=== PATIENT | male | born 1945 | race Caucasian/White ===

== ENCOUNTER → 2017-02-15 | Outpatient (CLI) | payer MEDICARE ==
[2017-02-15 08:04] LABS: Blood Urea Nitrogen 20 mg/dL (9-20); Non-African American GFR(MDRD) 54 (>60 ml/min/1.73 sqM)
--- NOTE | 2017-02-15 10:09 | CT ---
EXAMINATION TYPE: CT abdomen pelvis w con DATE OF EXAM: 02/15/2017 COMPARISON: NONE HISTORY: 71-year-old male complains of microscopic hematuria. TECHNIQUE: Contiguous axial scanning of the abdomen and pelvis following administration of 100 ml Omn ipaque 300 IV contrast. Delayed images through the kidneys and coronal/sagittal reconstructions perf ormed. CT DLP: 3974.7 mGycm Automated exposure control for dose reduction was used. FINDINGS: The heart is upper limits of normal in size without pericardial effusion. Strandy atelectasis at the lung bases without pleural effusion. Suspect some reticular interstitial fibrotic changes as well par ticularly at the right base. No focal liver lesion or biliary ductal dilatation. No abnormal gallbladder distention. However, some dependent hyperdense material is noted at the gallb ladder neck region. Scattered cysts within both kidneys some of which are mildly complicated such as in the posterior rig ht lower pole measuring 3.1 cm. 2 additional exophytic cysts on the right measure up to 3.3 cm one at the posterior lower pole left kidney measures 2.0 cm. There is bilateral nephrolithiasis. Approximately 8 calculi in the left including staghorn calculus m easuring up to 1.9 cm within the mid renal infundibulum and major calyceal system. There is no excret ion of contrast seen on either side on the delayed kidney images. On the right, no renal calculi are seen but there is a 2.1 cm calculus dependent within a dilated flex al pelvis with moderate hydronephrosis and mild perinephric stranding. There is an obstructing 1.3 cm calculus just beyond the UPJ in the upper ureter. No dilated small bowel, free fluid, or free air. No mesenteric or retroperitoneal lymphadenopathy see n. Mild atherosclerotic calcifications within the abdominal aorta without aneurysm. Normal appendix. Oral contrast has progressed to the mid sigmoid colon. No pericolonic inflammatory c hange. There is an ovoid soft tissue density measuring 1.7 cm along the left lateral aspect of the pr oximal sigmoid colon likely sequela of prior inflammation. Bladder is urine distended. However, there is eccentric wall thickening towards the left measuring up to 9.7 mm. There is a 1.5 cm dependent bladder calculus, central prostatic calcifications, and prost atomegaly at 7.0 cm wide. No abnormal fluid collection in the pelvis or pelvic lymphadenopathy. Bones: Prior right hip total arthroplasty. Degenerative changes at the SI joints and within the lower lumbar spine. Bridging anterior endplate spondylosis lower thoracic spine compatible with DISH. IMPRESSION: 1. A 1.3 CM CALCULUS IN THE RIGHT URETER JUST BEYOND THE UPJ CAUSING MODERATE OBSTRUCTIVE UROPATHY. A DDITIONAL 2.1 CM CALCULUS DEPENDENTLY IN THE DILATED RIGHT RENAL PELVIS. 2. LEFT-SIDED NEPHROLITHIASIS INCLUDING A 1.9 CM STAGHORN CALCULUS. WHILE THERE IS NO HYDRONEPHROSIS ON THE LEFT, THERE IS NO CONTRAST EXCRETION ON THE DELAYED IMAGES. CORRELATE WITH PATIENT'S CREATINI NE AND GFR. 3. A FEW BILATERAL RENAL CYSTS MEASURING UP TO 3.3 CM ON THE RIGHT. NO SUSPICIOUS RENAL LESION. 4. ECCENTRIC WALL THICKENING ALONG THE LEFT LATERAL ASPECT OF THE BLADDER MEASURING UP TO 1 CM. CORRE LATE WITH URINE CYTOLOGY AND DIRECT VISUALIZATION INDICATED TO EXCLUDE A UROTHELIAL LESION. 5. PROSTATOMEGALY (7 CM WIDE) WELL A 1.5 CM DEPENDENT BLADDER CALCULUS. 6. SUSPECT CHOLELITHIASIS.
== END | disposition home or self-care (01) ==
LOC: RADCTMAIN 07:18
PROVIDERS: ATTEND Urology
DX: N20.2 Calculus of kidney with calculus of ureter (principal); N21.0 Calculus in bladder; N40.1 Benign prostatic hyperplasia with lower urinary tract symptoms; N13.9 Obstructive and reflux uropathy, unspecified; N28.1 Cyst of kidney, acquired
CPT/HCPCS: 82565; 84520; 74177; 36415; Q9967

== ENCOUNTER → 2017-02-17 | Outpatient (CLI) | payer MEDICARE ==
--- NOTE | 2017-02-17 09:26 | XR ---
EXAMINATION TYPE: XR abdomen 1V DATE OF EXAM: 02/17/2017 COMPARISON: 02/15/2012, CT 02/15/2017 INDICATION: Renal calculus TECHNIQUE: Single view abdomen supine view FINDINGS: There is a normal bowel gas pattern. Psoas margins are normal. No organomegaly is present. There is a large inferior pole left renal calculus measuring estimated 2.1 x 3.1 cm in size. Additio nal smaller calcifications are in the mid left kidney. Faintly visualized at the right L2 transverse process is a 1.0 x 2.0 cm calcification may correspond to the obstructing proximal right ureteral sto ne from the CT examination. Phleboliths within the pelvis. IMPRESSION: 1. Multiple left-sided renal stones. 2. Right proximal ureteral stone faintly visualized appears stable from CT comparison.
== END | disposition home or self-care (01) ==
LOC: RADXRMAIN 08:13
PROVIDERS: ATTEND Urology
DX: N20.2 Calculus of kidney with calculus of ureter (principal)
CPT/HCPCS: 74000

== ENCOUNTER → 2017-04-05 | Outpatient (CLI) | payer MEDICARE ==
--- NOTE | 2017-04-05 17:04 | XR ---
EXAMINATION TYPE: XR chest 2V DATE OF EXAM: 04/05/2017 COMPARISON: 05/06/2015 HISTORY: Preoperative with history of atrial fibrillation TECHNIQUE: Frontal and lateral views of the chest are obtained. FINDINGS: There is no focal air space opacity, pleural effusion, or pneumothorax seen. The cardiac silhouette size is top normal. The osseous structures are negative for acute findings. IMPRESSION: No acute cardiopulmonary process.
[2017-04-05 17:21] LABS: Basophils % (A) 0 %; CH 31.5; CHCM 33.1; Eosinophils # (A) 0.2 k/uL (0-0.7); Eosinophils % (A) 3 %; HCT 52.1 % (39.0-53.0); HDW 2.46; HGB 16.6 gm/dL (13.0-17.5); Luc # (Auto) 0.14; Luc % (Auto) 2; Lymphocytes # (A) 1.3 k/uL (1.0-4.8); Lymphocytes % (A) 20 %; MCH 30.4 pg (25.0-35.0); MCHC 31.8 g/dL (31.0-37.0); MCV 95.8 fL (80.0-100.0); Mean Platelet Volume 8.3; Monocytes # (A) 0.5 k/uL (0-1.0); Monocytes % (A) 7 %; Neutrophils # (A) 4.4 k/uL (1.3-7.7); Neutrophils % (A) 68 %; RBC 5.44 m/uL (4.30-5.90); RDW 15.2 % (11.5-15.5); WBC 6.5 k/uL (3.8-10.6)
[2017-04-05 17:30] LABS: ALT 26 U/L (21-72); AST 19 U/L (17-59); Alkaline Phosphatase 66 U/L (38-126); Anion Gap 11 mmol/L; Blood Urea Nitrogen 22 mg/dL (9-20); Calcium 9.4 mg/dL (8.4-10.2); Carbon Dioxide 21 mmol/L (22-30); Chloride 111 mmol/L (98-107); Glucose 128 mg/dL (74-99); Non-African American GFR(MDRD) >60 (>60 ml/min/1.73 sqM); Potassium 4.7 mmol/L (3.5-5.1); Sodium 143 mmol/L (137-145); Total Bilirubin 0.5 mg/dL (0.2-1.3); Total Protein 7.4 g/dL (6.3-8.2)
[2017-04-05 17:50] LABS: Appearance,Urine Turbid (Clear); Bilirubin,Urine Negative (Negative); Glucose,Urine (UA) Negative (Negative); Ketones,Urine Negative (Negative); Leukocyte Esterase,Urine Large (Negative); Nitrite,Urine Negative (Negative); PH, Urine 5.5 (5.0-8.0); Particle Count 9228; Protein,Urine 1+ (Negative); RBC,Urine >182 /hpf (0-5); Specific Gravity,Urine 1.015 (1.001-1.035); Squamous Epithelial Cell,Urine 2 /hpf (0-4); UA Billing (MACRO vs. MICRO) MICRO; Urobilinogen,Urine <2.0 mg/dL (<2.0); WBC,Urine >182 /hpf (0-5)
== END | disposition home or self-care (01) ==
LOC: RADXRMAIN 16:30
PROVIDERS: ATTEND Urology
DX: Z01.810 Encounter for preprocedural cardiovascular examination (principal); Z01.818 Encounter for other preprocedural examination; I48.91 Unspecified atrial fibrillation; I10 Essential (primary) hypertension; N20.0 Calculus of kidney; E78.00 Pure hypercholesterolemia, unspecified; R35.0 Frequency of micturition; R31.9 Hematuria, unspecified
CPT/HCPCS: 36415; 71020; 80053; 81001; 85025; 87086

== ENCOUNTER 2017-04-12 10:00 | Inpatient (IN) | payer MEDICARE ==
[2017-04-06 08:52] VITALS: BMI 43.5
[2017-04-13] MEDS ORDERED: GENTAMICIN 220 MG in SODIUM CHLORIDE 0.9% 100 ML IVPB ONE (05:00)
[2017-04-13] MEDS ORDERED: DEXAMETHASONE SOD PHOSPHATE 10 MG/ML 1 ML VIAL IV ONE (06:03)
[2017-04-13] MEDS ORDERED: LACTATED RINGERS 1,000 ML IV SCH (06:03)
[2017-04-13] MEDS ORDERED: HYDROmorphone 0.5 MG/0.5 ML SYRINGE IVP PRN (06:03)
[2017-04-13] MEDS ORDERED: ONDANSETRON 4 MG/2 ML VIAL IVP ONE (06:03)
--- NOTE | 2017-04-13 08:11 | XR ---
EXAMINATION TYPE: XR KUB DATE OF EXAM: 04/13/2017 CLINICAL DATA: 71-year-old male preop bilateral renal stones. COMPARISON: 02/17/2017 FINDINGS: Nonobstructive bowel gas pattern. Redemonstrated 2.7 cm calcification in the left abdomen. Additional left-sided calculi are not as bradford dent on the current exam. In the right paramedian mid abdomen, a 1.2 cm calcification is demonstrated. This appears slightly lo wer in position and smaller from prior exam. Phleboliths in the pelvis, right greater than left. Right hip total arthroplasty partially visualized. Mild degenerative changes at the left hip. IMPRESSION: 1. Left-sided nephrolithiasis measuring up to 2.7 cm. 2. A 1.2 cm calcification right paramedian mid abdomen appears slightly lower and slightly smaller. T his could reflect a calculus in the upper third right ureter. Clinically correlate.
[2017-04-13] MEDS ORDERED: LIDOCAINE 1% 20 ML VIAL (10MG/ML) FOR IV START INTRADERMA ONE (08:24)
[2017-04-13 08:53] LABS: INR 1.3 (<1.2); Prothrombin Time 13.2 sec (9.0-12.0)
[2017-04-13] MEDS ORDERED: PHENYLEPHRINE-0.9% NACL SYG 1 MG/10 ML SYRINGE ONE (08:54)
[2017-04-13] MEDS ORDERED: SUCCINYLCHOLINE CHLORIDE VIAL 200 MG/10 ML VIAL IV ONE (08:54)
[2017-04-13] MEDS ORDERED: LIDOCAINE 1% INJ 10MG/ML (20 ML MDV) ONE (08:54)
[2017-04-13] MEDS ORDERED: MIDAZOLAM 2 MG/2 ML VIAL ONE (08:54)
[2017-04-13] MEDS ORDERED: PROPOFOL 10 MG/ML 20 ML VIAL IV ONE (08:54)
[2017-04-13] MEDS ORDERED: ePHEDrine SULFATE/0.9% NACL/PF 50 MG/5 ML SYRINGE IV ONE (08:54)
[2017-04-13] MEDS ORDERED: fentaNYL (PF) 50 MCG/ML 2 ML AMP ONE (08:54)
[2017-04-13] MEDS ORDERED: IOHEXOL 300 MG/ML 50 ML BOTTLE MISCELLANE ONE (09:27)
--- NOTE | 2017-04-13 10:10 | P.OP ---
Date of Procedure: 04/13/17 Preoperative Diagnosis: Right renal calculi, right hydronephrosis, urine infection Postoperative Diagnosis: Right renal calculi, right ureteral calculi, right hydronephrosis, urethral stricture, bladder stone Procedure(s) Performed: Cystoscopy, direct vision internal urethrotomy, placement of 6 x 26 double-J catheter right, cystoscopy lithotripsy with laser, large, placement of 18- Tanzanian Rodriguez catheter Anesthesia: AWA Surgeon: Melvin Hanley Estimated Blood Loss (ml): 10 Pathology: other (Bladder stone) Condition: stable Disposition: PACU Indications for Procedure: The patient is a 71-year-old gentleman who was brought to the hospital for a percutaneous nephrostolithotomy this morning. He has a known proximal ureteral stone large right renal stone and hydronephrosis. His urine culture is positive for enterococcus therefore I will place a double-J catheter rather than seed with a percutaneous nephrostolithotomy. This will be done after antibiotic treatment and drainage with the double-J catheter. Description of Procedure: The patient is brought to the operating suite and given a successful general endotracheal anesthesia. He's placed lithotomy position with sterile prep and drape. Under direct vision the 22-Tanzanian sheath and Foroblique lenses introduced in the anterior urethra and in the mid bulbar urethra strictures identified. I thus removed the cystoscope and introduced the direct vision urethrotome. I cut stricture from mid bulbar urethra back to proximal urethra. Senna the prostate which is large and obstructing and inflamed. I passed into the bladder and there is a large bladder calculus. It was about 3 cm. I identified the right ureteral orifice. An 035 wires passed through this for the double-J catheter. It meets obstruction in the proximal ureter due to the stone. I passed an open-ended catheter over the wire. I eventually am able to pass the 035 wire by the stone. I removed the open-ended catheter from the wire and passed a 6 x 26 double-J catheter. The catheter coils proximal to the stone and in the bladder. I then introduced the 500 laser probe break the stone into very small pieces and irrigated out of the bladder. I then pass an 18-Tanzanian Rodriguez catheter in the bladder. Impression successful direct vision internal urethrotomy, cystoscopy lithotripsy , placement of double-J catheter right. Recommendations: The catheter will remain in one week. The double-J catheter will remain in until I do the percutaneous nephrostolithotomy which will be after April 29 at the patient and his family's request
[2017-04-13 10:15] VITALS: TEMP 96.8
[2017-04-13] MEDS: LABETALOL 5 MG/ML VIAL MDV IV ONE ×2 (10:25→10:32)
--- NOTE | 2017-04-13 10:57 | FL ---
EXAMINATION TYPE: FL urography retrograde DATE OF EXAM: 04/13/2017 COMPARISON: NONE HISTORY: 71 year-old male right stent placement TECHNIQUE: Fluoroscopy. FINDINGS: Fluoroscopic guidance was provided during procedure performed by Dr. Hanley. A total of 2 minutes 21 seconds of fluoroscopic time was utilized during the procedure and 1 spot images was acqui red. IMPRESSION: As Above. Refer to urology procedure note for complete findings and impression.
[2017-04-13 13:57] LABS: Glucose,Whole Blood 210 mg/dL (75-99)
[2017-04-13 14:01] VITALS: BP 143/97; PULSE 93; RESP 18
--- NOTE | 2017-04-19 09:06 | P.DS ---
Providers Date of admission: 04/13/17 07:50 Attending physician: Melvin Hanley Primary care physician: Audrey Zepeda [facility] Course: The patient was admitted to the hospital for a percutaneous nephrostolithotomy however due to an infection this was canceled. He underwent cystoscopy, direct vision internal urethrotomy, cystoscopy lithotripsy to a large stone and placement of a double-J catheter to relieve the obstructing infected kidney. He was discharged home. He'll follow-up in the office in one week. He'll be set up for percutaneous nephrostolithotomy at a later date. I felt that these above procedures superseded the need to do the percutaneous nephrostolithotomy at this point in time. The patient's understand. Patient Condition at Discharge: Good Plan - Discharge Summary New Discharge Prescriptions: New Ciprofloxacin HCl [Cipro] 500 mg PO Q12HR #60 tablet HYDROcodone/APAP 5-325MG [[place] 5-325] 1 tab PO Q4HR PRN #20 tab PRN Reason: Pain Control No Action Simvastatin 20 mg PO HS Metoprolol Tartrate [Lopressor] 50 mg PO TID #90 tab Warfarin [Coumadin] 5 mg PO DAILY Fluticasone Nasal [place] [Flonase Nasal [place]] 1 spray EA NOSTRIL DAILY PRN PRN Reason: dizziness Discharge Medication List Simvastatin 20 mg PO HS 02/21/15 [History] Metoprolol Tartrate [Lopressor] 50 mg PO TID #90 tab 02/25/15 [Rx] Fluticasone Nasal [place] [Flonase Nasal [place]] 1 spray EA NOSTRIL DAILY PRN 04/06 [History] Warfarin [Coumadin] 5 mg PO DAILY 04/06/17 [History] Ciprofloxacin HCl [Cipro] 500 mg PO Q12HR #60 tablet 04/13/17 [Rx] HYDROcodone/APAP 5-325MG [[place] 5-325] 1 tab PO Q4HR PRN #20 tab 04/13/17 [Rx] Follow up Appointment(s)/Referral(s): Melvin Hanley MD [STAFF PHYSICIAN] - 1 Week (OFFICE TO CALL YOU AT HOME WITH FOLLOW UP DATE AND TIME) Patient Instructions/Handouts: *[facility] - Cystoscopy Discharge Instructions , *[facility] - Rodriguez Catheter Instructions, *[facility] - (Anesthesia) Discharge Instructions Outpatient Surgery Activity/Diet/Wound Care/Special Instructions: Office will call you with a follow up appointment date and time. Discharge Disposition: HOME SELF-CARE
== END 2017-04-13 14:35 | disposition home or self-care (01) | DRG 694 ==
LOC: 2ORMAIN 04-13 07:50
PROVIDERS: ADMIT Urology; ATTEND Urology
PROC: 0TF68ZZ Fragmentation in Right Ureter, Via Natural or Artificial Opening Endoscopic (ICD-10-PCS; principal; 2017-04-13 09:00)
PROC: 0T7D8ZZ Dilation of Urethra, Via Natural or Artificial Opening Endoscopic (ICD-10-PCS; principal; 2017-04-13 09:00)
PROC: 0T768DZ Dilation of Right Ureter with Intraluminal Device, Via Natural or Artificial Opening Endoscopic (ICD-10-PCS; principal; 2017-04-13 09:00)
PROC: 0T9B70Z Drainage of Bladder with Drainage Device, Via Natural or Artificial Opening (ICD-10-PCS; principal; 2017-04-13 09:00)
DX: N13.2 Hydronephrosis with renal and ureteral calculous obstruction (principal); I48.92 Unspecified atrial flutter; N39.0 Urinary tract infection, site not specified; N13.1 Hydronephrosis with ureteral stricture, not elsewhere classified; N21.0 Calculus in bladder; I48.91 Unspecified atrial fibrillation; I35.1 Nonrheumatic aortic (valve) insufficiency; R31.9 Hematuria, unspecified; N40.1 Benign prostatic hyperplasia with lower urinary tract symptoms; I10 Essential (primary) hypertension; R35.0 Frequency of micturition; N35.9 Urethral stricture, unspecified; B95.2 Enterococcus as the cause of diseases classified elsewhere; E78.00 Pure hypercholesterolemia, unspecified; Z87.442 Personal history of urinary calculi; Z88.1 Allergy status to other antibiotic agents; Z88.0 Allergy status to penicillin; Z88.2 Allergy status to sulfonamides; Z96.641 Presence of right artificial hip joint; Z79.01 Long term (current) use of anticoagulants; Z79.899 Other long term (current) drug therapy; Z96.653 Presence of artificial knee joint, bilateral; Z82.49 Family history of ischemic heart disease and other diseases of the circulatory system; Z80.42 Family history of malignant neoplasm of prostate
CPT/HCPCS: 74000; 74420; 82365; 85610; 86850; 86900; 86901

== ENCOUNTER 2017-05-05 13:00 | Inpatient (IN) | payer MEDICARE ==
[2017-05-19 14:58] VITALS: BMI 43.5
[2017-05-24] MEDS ORDERED: GENTAMICIN 220 MG in SODIUM CHLORIDE 0.9% 100 ML IVPB ONE (05:00)
[2017-05-24] MEDS ORDERED: DEXAMETHASONE SOD PHOSPHATE 10 MG/ML 1 ML VIAL IV ONE (05:58)
[2017-05-24] MEDS ORDERED: ONDANSETRON 4 MG/2 ML VIAL IVP ONE (05:58)
[2017-05-24] MEDS ORDERED: LIDOCAINE 1% 20 ML VIAL (10MG/ML) FOR IV START INTRADERMA ONE (06:40)
[2017-05-24] MEDS: LACTATED RINGERS 1,000 ML IV SCH (06:47)
[2017-05-24 06:57] LABS: INR 1.3 (<1.2)
[2017-05-24 06:58] LABS: Prothrombin Time 12.7 sec (9.0-12.0)
--- NOTE | 2017-05-24 07:17 | XR ---
EXAMINATION TYPE: XR KUB DATE OF EXAM: 05/24/2017 7:09 AM CLINICAL HISTORY: Preoperative for right nephrolithiasis. TECHNIQUE: Single supine KUB image of the abdomen is obtained. COMPARISON: 04/13/2017 FINDINGS: The previously seen calculus measured 1.2 cm on the prior exam and was adjacent to the righ t transverse process of L4 is not clearly visualized on today's examination. Right ureteral stent is identified, new from the prior. Staghorn calculus on the left is again present measuring approximatel y 2.6 cm as well as additional 4 mm and 1.6 cm left renal calculi. Right femoral arthroplasty and surrounding heterotopic ossification and moderate degenerative changes of the left femoral acetabular joint are noted. Scattered gas is seen in non-distended small bowel l oops. Gas and fecal material is seen in non-distended colon. IMPRESSION: 1. Previously seen 1.2 cm right ureteral calculus is not radiographically visualized and may have bee n surgically removed in the interim. 2. Multiple left renal calculi measuring up to 2.6 cm.
[2017-05-24] MEDS ORDERED: fentaNYL (PF) 50 MCG/ML 2 ML AMP ONE (07:30)
[2017-05-24] MEDS ORDERED: LIDOCAINE 1% INJ 10MG/ML (20 ML MDV) ONE (07:30)
[2017-05-24] MEDS ORDERED: NEOSTIGMINE 1 MG/ML 10 ML VIAL ONE (07:30)
[2017-05-24] MEDS ORDERED: ROCURONIUM BROMIDE 10 MG/ML 10 ML VIAL IV ONE (07:30)
[2017-05-24] MEDS ORDERED: PHENYLEPHRINE-0.9% NACL SYG 1 MG/10 ML SYRINGE ONE (07:30)
[2017-05-24] MEDS ORDERED: PROPOFOL 10 MG/ML 20 ML VIAL IV ONE (07:30)
[2017-05-24] MEDS ORDERED: METOPROLOL TARTRATE 5 MG/5 ML VIAL IVP ONE (07:30)
[2017-05-24] MEDS ORDERED: SUCCINYLCHOLINE CHLORIDE VIAL 200 MG/10 ML VIAL IV ONE (07:30)
[2017-05-24] MEDS ORDERED: GLYCOPYRROLATE 0.2 MG/ML 2 ML VIAL ONE (07:30)
[2017-05-24] MEDS ORDERED: ePHEDrine SULFATE/0.9% NACL/PF 50 MG/5 ML SYRINGE IV ONE (07:30)
[2017-05-24] MEDS ORDERED: MIDAZOLAM 2 MG/2 ML VIAL ONE (07:30)
[2017-05-24] MEDS ORDERED: IOHEXOL 350 MG/ML 50ML BOTTLE IRRIGATION ONE ×3 (08:00→09:22)
[2017-05-24] MEDS ORDERED: IOHEXOL 350 MG/ML 50ML BOTTLE INTRATHECA ONE (08:38)
[2017-05-24] MEDS ORDERED: LACTATED RINGERS 1,000 ML IV ONE ×4 (08:50→10:51)
[2017-05-24] MEDS ORDERED: HYDROcodone/APAP 5-325MG 1 EACH TAB PO PRN ×2 (10:28→10:49)
[2017-05-24] MEDS ORDERED: MAG HYDROX/AL HYDROX/SIMETH 30 ML CUP PO PRN (10:32)
[2017-05-24] MEDS ORDERED: ONDANSETRON 4 MG/2 ML VIAL IVP PRN (10:32)
[2017-05-24] MEDS ORDERED: NALOXONE 0.4 MG/ML 1 ML VIAL IV PRN (10:36)
[2017-05-24] MEDS ORDERED: HYDROmorphone PCA 5 MG/25 ML SYRINGE IV PRN (10:36)
--- NOTE | 2017-05-24 10:40 | FL ---
EXAMINATION TYPE: FL Perc Nephrostomy New Access DATE OF EXAM: 05/24/2017 COMPARISON: NONE HISTORY: Right-sided nephrolithiasis TECHNIQUE: Fluoroscopy. FINDINGS/IMPRESSION: Fluoroscopic guidance was provided during procedure performed by Dr. Hanley. A total of 21.27 minutes of fluoroscopic time was utilized during the procedure and 2 spot images was a cquired demonstrating opacification through the right nephrostomy tube.
--- NOTE | 2017-05-24 10:44 | P.OP ---
Date of Procedure: 05/24/17 Preoperative Diagnosis: Renal and ureteral stone Postoperative Diagnosis: Right renal and ureteral stone Procedure(s) Performed: Cystoscopy, removal double-J catheter right, placement of 5-Monegasque occluding balloon catheter right, percutaneous nephrostomy Dr. Bentley, percutaneous nephrostolithotomy with ultrasound, ureteroscopy with laser lithotripsy right, placement of 20-Monegasque reentry nephrostomy tube Anesthesia: GETA Surgeon: Melvin Hanley Estimated Blood Loss (ml): 300 Pathology: other (Stone) Condition: stable Disposition: PACU Indications for Procedure: The patient is a morbidly obese 71-year-old gentleman with an obstructing right ureteral calculus and a large volume of right renal calculi. He previously had a direct vision internal urethrotomy, cystoscopy lithotripsy to bladder stones and placement of a stent to relieve the obstruction he now comes for a nephrostolithotomy Description of Procedure: The patient is brought to the operating suite and placed on the operating table in a supine position. He is given general anesthesia. He's placed lithotomy position with a sterile prep and drape. Cystoscopy of the Foroblique lens and 22-Monegasque sheath identifies a previous strictures opened and I am able to manipulate the scope through the urethra. I entered the bladder and the double- J catheters identified. It is grasped and pulled to the urethral meatus with the rasping forceps. Through the stent will 35 wire is passed up into the ureter. Over the wire is then passed a 5-Monegasque occluding balloon catheter. It is secured to a 16-Monegasque Rodriguez. Due to the patient's morbid obesity he is placed back on the transport gurney. He is then rolled on the operating table with care to airways and extremities. Fluoroscopy is performed and it appears that the stent is pulled back into the bladder due to the transfers despite care and taping the catheter. We injected 100 mL of Omnipaque to see if we can perform the nephrostomy track in this manner. Simultaneously I performed flexible cystoscopy and eventually identify the right ureteral orifice and him able to pass an 035 wire up into the collecting system. Over this is passed a 6-Monegasque open-ended catheter. As I am injecting air through the ureteral catheter Dr. Bentley had intubated the lower pole calyx. We then dilate the tract to 30-Monegasque. I introduced the rigid sheath into the collecting system. I remove clot and identify a very large stone at the UPJ, 2-1/2 cm. With ultrasound I break the stone into tiny pieces and remove it. There is another stone wedged in the proximal ureter and with the flexible scope I'm able to break this into smaller pieces and remove it. Then am able to look down the ureter and see no remaining stone. Look through the collecting system best I can and see no remaining stone. I due to fluoroscopy and see no stone however due to his morbid obesity I question the validity. Therefore a 20-Monegasque reentry nephrostomy tube was placed a. The patient is awakened and returned recovery room good condition. I will do a computed tomography scan postoperatively to see if there are remaining stones. Blood loss is approximately 300 mL.
[2017-05-24] MEDS: HYDROmorphone 0.5 MG/0.5 ML SYRINGE IVP PRN ×2 (11:07→11:41)
[2017-05-24] MEDS ORDERED: LABETALOL SYRINGE 5 MG/ML IVP ONE (12:03)
[2017-05-24] MEDS: METOPROLOL TARTRATE 50 MG TAB PO SCH (19:15)
[2017-05-24] MEDS: ATORVASTATIN 10 MG TAB PO SCH (19:15)
[2017-05-24] MEDS: DEXTROSE 5%-0.45% NACL 1,000 ML IV SCH (22:51)
[2017-05-25] MEDS: ACETAMINOPHEN TAB 325 MG TAB PO PRN ×3 (03:56→19:48)
[2017-05-25] MEDS: LACTATED RINGERS 1,000 ML IV SCH (05:38)
--- NOTE | 2017-05-25 07:10 | P.PN ---
Subjective The patient is in his first postoperative day from a percutaneous nephrostolithotomy on the right side. He had some pain overnight but seems to be under control at present. The urine in his Rodriguez catheter is clear. The urine in his nephrostomy tube is clearing. He ambulated some last night. He had some food. I will get a computed tomography scan without contrast to make certain that there are no retained fragments. He is a very large man and I could not say for certain based on fluoroscopy that there is any retained stone. Endoscopically it was also difficult due to the significant amount of inflammation that he had. He'll be discharged home later today or tomorrow. With I need to do a secondary nephrostolithotomy will be dependent on the computed tomography scan. Objective - Vital Signs Vital signs: Vital Signs Temp 98.1 F 05/25/17 00:28 Pulse 88 05/25/17 00:28 Resp 16 05/25/17 00:28 BP 150/76 05/25/17 00:28 Pulse Ox 93 L 05/25/17 00:28 Intake & Output 05/24/17 05/25/17 05/25/17 18:59 06:59 18:59 Intake Total 2265.5 Output Total 1145 850 Balance 1120.5 -850 Weight 149.685 kg Intake: IV 2205.5 Lactated Ringers 1,000 ml 100 @ 20 mls/hr IV .Q24H [facility] Rx#:[id number] Oral 60 Output: Drainage 150 200 Right Back 150 200 Urine 695 650 Estimated Blood Loss 300 Other: Voiding Method Indwelling Catheter Indwelling Catheter
[2017-05-25] MEDS: METOPROLOL TARTRATE 50 MG TAB PO SCH ×2 (09:05→19:49)
[2017-05-25] MEDS: LEVOFLOXACIN 500 MG TAB PO SCH (09:05)
[2017-05-25] MEDS: DEXTROSE 5%-0.45% NACL 1,000 ML IV SCH ×3 (09:07→17:23)
--- NOTE | 2017-05-25 13:28 | CT ---
EXAMINATION TYPE: CT abdomen pelvis wo con DATE OF EXAM: 05/25/2017 COMPARISON: 02/15/2017 HISTORY: 71-year-old male Follow up post procedure to look for retained renal stones. CT DLP: 1605.5 mGycm. Automated exposure control for dose reduction was used. TECHNIQUE: Contiguous axial scanning of the abdomen and pelvis without IV contrast. Coronal and sagit gustavo reconstructions performed. FINDINGS: The heart is upper limits of normal in size without pericardial effusion. There is some dependent ate lectasis posteriorly at the right base. No pleural effusion seen. Noncontrast appearance of the liver, right adrenal gland, spleen, and pancreas show no gross abnormal . 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 There is vicarious excretion of contrast via the biliary system with endoluminal opacification of the gallbladder outlining some small dependent gallstones. Residual contrast is seen excreting from the right renal collecting system. Stable 1.8 cm hypodense l esion, likely cyst posterior lower pole left kidney. Multiple left-sided renal calculi are present so me of which appear to be casting. Largest measures 3.2 x 0.9 cm and 1.8 cm. Approximately 6 calculi a re present. Suggestion of cortical thinning on both sides. There is a right-sided nephrostomy tube. A ureteral stent extends from this tube at the margin of the renal cortex down to the proximal to middle third right ureter. There is diffuse urothelial thickening of the right collecting system and suggestion of some heteroge neous filling defects probably hemorrhagic debris and nondependent air. There is improved but residua l right-sided pelvicaliectasis. The right ureter itself is not dilated and there is no suspicious low cification along its course. Tiny punctate 2 mm calcification adjacent to the distal right ureter, ax ial image 138 is felt to represent a tiny adjacent phlebolith. The previous bladder calculus is no longer seen. There is contrast seen opacifying the bladder lumen. Nondependent bladder air likely relates to instrumentation. Prostate gland is now larger measuring 7.3 cm wide with prostatic calcifications. Rodriguez balloon infla flaco along the prostatic urethra. There is some mixed hyperdense contrast, fluid, and some foci of air along the right posterolateral r etroperitoneum. Suspected cysts redemonstrated lateral right kidney and a probable complicated cyst m easuring 2.5 cm posterior lower pole. No dilated small bowel, free fluid, or free air. No mesenteric or retroperitoneal lymphadenopathy. Bones: Right hip total arthroplasty. Degenerative changes lower lumbar spine. IMPRESSION: 1. The junction between the right nephrostomy tube and the ureteral extension is 6 to 7 cm outside o f the renal pelvis and just outside the margin of the renal cortex. Reposition as necessary. 2. No residual calcifications seen along the right ureter or collecting system. However, there is di ffuse right-sided urothelial thickening, air, and some heterogeneous material, probably hemorrhagic d ebris in the collecting system. Findings likely secondary to the patient's procedure. 3. Contrast within the right renal collecting system could relate to the procedure or reflect delayed excretion from the right kidney. Some degree of underlying acute kidney injury is suspected given th e vicarious excretion of contrast from the biliary system. 4. Some extravasated urine and contrast with foci of air located within the right retroperitoneum. Olga walters related to the procedure. 5. Note that the patient's Rodriguez balloon is inflated in the prostatic urethra. Appropriate reposition ing recommended. 6. Multiple nonobstructing left-sided renal calculi measuring up to 3.2 cm. 7. Cholelithiasis.
[2017-05-25] MEDS: ATORVASTATIN 10 MG TAB PO SCH (19:48)
[2017-05-26 01:02] VITALS: TEMP 97.6
[2017-05-26] MEDS: ACETAMINOPHEN TAB 325 MG TAB PO PRN ×2 (01:26→06:40)
[2017-05-26] MEDS: DEXTROSE 5%-0.45% NACL 1,000 ML IV SCH (01:27)
[2017-05-26] MEDS: LACTATED RINGERS 1,000 ML IV SCH (03:09)
[2017-05-26 07:11] VITALS: BP 124/68; PULSE 82; RESP 16
--- NOTE | 2017-05-26 07:43 | P.DS ---
Providers Date of admission: 05/24/17 06:02 Attending physician: Melvin Hanley Primary care physician: Stated None Hospital Course: The patient was admitted to the hospital 05/24/2017 for a right percutaneous nephrostolithotomy. He underwent this procedure. It was difficult to determine whether all the stone was removed due to his morbid obesity. A postoperative computed tomography scan was obtained and identified no remaining stone. The nephrostomy tube is slightly dislodged which is quite common an obese patient's but the ureteral catheter was maintained. He was unable to void this a Rodriguez catheter was replaced. He wants to go home. He states that he has problems urinating postoperatively. He'll thus be sent home with the nephrostomy tube which will be removed Monday in the office as well as a Rodriguez. He'll be given Flomax 1 daily. He has [place] at home. He'll hold his warfarin until I see him. Postoperative instructions have been given. He is ambulating and tolerating his diet. Patient Condition at Discharge: Good Plan - Discharge Summary Discharge Rx Participant: No New Discharge Prescriptions: No Action Simvastatin 20 mg PO HS Warfarin [Coumadin] 5 mg PO DAILY Fluticasone Nasal [place] [Flonase Nasal [place]] 1 spray EA NOSTRIL DAILY PRN PRN Reason: dizziness HYDROcodone/APAP 5-325MG [[place] 5-325] 1 tab PO Q4HR PRN #20 tab PRN Reason: Pain Control Levofloxacin [Levaquin] 500 mg PO DAILY Metoprolol Tartrate [Lopressor] 50 mg PO BID Discharge Medication List Simvastatin 20 mg PO HS 02/21/15 [History] Fluticasone Nasal [place] [Flonase Nasal [place]] 1 spray EA NOSTRIL DAILY PRN 04/06 [History] Warfarin [Coumadin] 5 mg PO DAILY 04/06/17 [History] HYDROcodone/APAP 5-325MG [[place] 5-325] 1 tab PO Q4HR PRN #20 tab 04/13/17 [Rx] Levofloxacin [Levaquin] 500 mg PO DAILY 05/19/17 [History] Metoprolol Tartrate [Lopressor] 50 mg PO BID 05/19/17 [History] Follow up Appointment(s)/Referral(s): Melvin Hanley MD [STAFF PHYSICIAN] - 05/29/17 Activity/Diet/Wound Care/Special Instructions: Home with nephrostomy tube. Home with Rodriguez. Flomax 1 daily. Please make an appointment to see me in the office Monday. Hold the warfarin until I see him. Discharge Disposition: HOME SELF-CARE
[2017-05-26] MEDS: METOPROLOL TARTRATE 50 MG TAB PO SCH (09:08)
[2017-05-26] MEDS: LEVOFLOXACIN 500 MG TAB PO SCH (09:08)
== END 2017-05-26 09:25 | disposition home or self-care (01) | DRG 669 ==
LOC: 2ORMAIN 05-24 06:02 → 3SUR 05-24 10:33
PROVIDERS: ADMIT Urology; ATTEND Urology
PROC: 0TC68ZZ Extirpation of Matter from Right Ureter, Via Natural or Artificial Opening Endoscopic (ICD-10-PCS; 2017-05-24)
PROC: 0TPB80Z Removal of Drainage Device from Bladder, Via Natural or Artificial Opening Endoscopic (ICD-10-PCS; 2017-05-24)
PROC: 0T768DZ Dilation of Right Ureter with Intraluminal Device, Via Natural or Artificial Opening Endoscopic (ICD-10-PCS; 2017-05-24)
PROC: 0TJB8ZZ Inspection of Bladder, Via Natural or Artificial Opening Endoscopic (ICD-10-PCS; principal; 2017-05-24 07:30)
DX: N20.2 Calculus of kidney with calculus of ureter (principal); Z68.41 Body mass index [BMI] 40.0-44.9, adult; I48.91 Unspecified atrial fibrillation; E66.01 Morbid (severe) obesity due to excess calories; I10 Essential (primary) hypertension; N40.0 Benign prostatic hyperplasia without lower urinary tract symptoms; E78.00 Pure hypercholesterolemia, unspecified; Z96.641 Presence of right artificial hip joint; Z96.653 Presence of artificial knee joint, bilateral; Z80.42 Family history of malignant neoplasm of prostate; Z82.49 Family history of ischemic heart disease and other diseases of the circulatory system; Z88.1 Allergy status to other antibiotic agents; Z88.0 Allergy status to penicillin; Z88.2 Allergy status to sulfonamides; Z79.01 Long term (current) use of anticoagulants; Z79.891 Long term (current) use of opiate analgesic; Z79.899 Other long term (current) drug therapy
CPT/HCPCS: 50432; 74000; 74176; 82365; 85610; 86850; 86900; 86901

== ENCOUNTER → 2017-06-12 | Outpatient (CLI) | payer MEDICARE ==
[2017-06-12 13:50] LABS: Basophils # (A) 0.1 k/uL (0-0.2); Basophils % (A) 1 %; CH 30.2; CHCM 31.9; Eosinophils # (A) 0.2 k/uL (0-0.7); Eosinophils % (A) 3 %; HCT 49.6 % (39.0-53.0); HDW 2.48; HGB 15.9 gm/dL (13.0-17.5); Luc # (Auto) 0.22; Luc % (Auto) 4; Lymphocytes % (A) 17 %; MCH 30.5 pg (25.0-35.0); MCHC 31.9 g/dL (31.0-37.0); MCV 95.4 fL (80.0-100.0); Mean Platelet Volume 7.9; Monocytes # (A) 0.4 k/uL (0-1.0); Monocytes % (A) 6 %; Neutrophils % (A) 69 %; RDW 13.2 % (11.5-15.5); WBC 5.8 k/uL (3.8-10.6)
[2017-06-12 14:04] LABS: Appearance,Urine Cloudy (Clear); Bilirubin,Urine Negative (Negative); Glucose,Urine (UA) Negative (Negative); Ketones,Urine Negative (Negative); Leukocyte Esterase,Urine Large (Negative); Mucus,Urine Rare /hpf; Nitrite,Urine Negative (Negative); PH, Urine 5.5 (5.0-8.0); Particle Count 2592; Protein,Urine 1+ (Negative); RBC,Urine 116 /hpf (0-5); Specific Gravity,Urine 1.015 (1.001-1.035); Squamous Epithelial Cell,Urine <1 /hpf (0-4); UA Billing (MACRO vs. MICRO) MICRO; Urobilinogen,Urine <2.0 mg/dL (<2.0); WBC,Urine 89 /hpf (0-5)
[2017-06-12 14:08] LABS: Calcium 9.6 mg/dL (8.4-10.2); Potassium 4.8 mmol/L (3.5-5.1)
== END | disposition home or self-care (01) ==
LOC: LABPAT 13:05
PROVIDERS: ATTEND Urology
DX: Z01.818 Encounter for other preprocedural examination (principal); N42.0 Calculus of prostate; Z79.899 Other long term (current) drug therapy; R35.0 Frequency of micturition; N39.0 Urinary tract infection, site not specified; N20.0 Calculus of kidney
CPT/HCPCS: 80048; 81001; 85025; 86850; 86900; 86901; 87077; 87086; 87186

== ENCOUNTER 2017-06-21 06:28 | Day surgery (SDC) | payer MEDICARE ==
[2017-06-20 09:34] VITALS: BMI 44.7
[~2017-06-21 06:28] MED LIST: DEXAMETHASONE SOD PHOSPHATE 10 MG/ML 1 ML VIAL IV ONE; LACTATED RINGERS 1,000 ML IV SCH; ONDANSETRON 4 MG/2 ML VIAL IVP ONE; ceFAZolin 3 GM in SODIUM CHLORIDE 0.9% 100 ML IVPB ONE
--- NOTE | 2017-06-21 07:10 | XR ---
Abdomen HISTORY: Preop Frontal view of the abdomen on 2 images correlated to prior abdomen 05/24/2017 Multiple calcifications are stable over the left kidney. Ureteral stent is no longer evident on the r ight. Lung bases are not included on the exam. Pelvic calcifications are stable, postop change again noted in the right hip. IMPRESSION: Stable left-sided nephrolithiasis.
[2017-06-21] MEDS ORDERED: LIDOCAINE 1% 20 ML VIAL (10MG/ML) FOR IV START INTRADERMA ONE (07:21)
[2017-06-21 07:26] LABS: INR 1.5 (<1.2); Prothrombin Time 13.9 sec (9.0-12.0)
[2017-06-21] MEDS ORDERED: PHENYLEPHRINE-0.9% NACL SYG 1 MG/10 ML SYRINGE ONE (08:11)
[2017-06-21] MEDS ORDERED: SUCCINYLCHOLINE CHLORIDE 100 MG/5 ML SYR IV ONE (08:11)
[2017-06-21] MEDS ORDERED: MIDAZOLAM 2 MG/2 ML VIAL ONE (08:11)
[2017-06-21] MEDS ORDERED: ePHEDrine SULFATE/0.9% NACL/PF 50 MG/5 ML SYRINGE IV ONE (08:11)
[2017-06-21] MEDS ORDERED: fentaNYL (PF) 50 MCG/ML 2 ML AMP ONE (08:11)
[2017-06-21] MEDS ORDERED: GLYCOPYRROLATE 0.2 MG/ML 2 ML VIAL ONE (08:11)
[2017-06-21] MEDS ORDERED: PROPOFOL 10 MG/ML 20 ML VIAL IV ONE (08:11)
[2017-06-21] MEDS ORDERED: ROCURONIUM BROMIDE 10 MG/ML 10 ML VIAL IV ONE (08:11)
[2017-06-21] MEDS ORDERED: LIDOCAINE 1% INJ 10MG/ML (20 ML MDV) ONE (08:11)
[2017-06-21] MEDS ORDERED: NEOSTIGMINE 1 MG/ML 10 ML VIAL ONE (08:11)
[2017-06-21] MEDS ORDERED: LACTATED RINGERS 1,000 ML IV ONE ×3 (08:40→11:28)
[2017-06-21] MEDS ORDERED: SODIUM CHLORIDE 0.9% 1,000 ML BAG IRRIGATION ONE (09:00)
[2017-06-21] MEDS ORDERED: IOHEXOL 350 MG/ML (PER ML) 100ML BTL MISCELLANE ONE (09:00)
[2017-06-21] MEDS ORDERED: MAG HYDROX/AL HYDROX/SIMETH 30 ML CUP PO PRN (11:46)
[2017-06-21] MEDS ORDERED: TAMSULOSIN 0.4 MG CAP.ER.24H PO PRN (11:46)
[2017-06-21] MEDS ORDERED: HYDROmorphone PCA 5 MG/25 ML SYRINGE IV PRN (11:48)
[2017-06-21] MEDS ORDERED: NALOXONE 0.4 MG/ML 1 ML VIAL IV PRN (11:48)
--- NOTE | 2017-06-21 11:58 | P.OP ---
Date of Procedure: 06/21/17 Preoperative Diagnosis: Left renal calculi, large Postoperative Diagnosis: Same Procedure(s) Performed: Cystoscopy, placement of occluding balloon catheter 5-Algerian left, percutaneous nephrostomy (Dr. pandey) percutaneous nephrostolithotomy, large, ultrasound and laser lithotripsy. Placement of 12-Algerian J nephrostomy tube Anesthesia: AWA Surgeon: Melvin Hanley Estimated Blood Loss (ml): 200 Pathology: other (Stone) Condition: stable Disposition: PACU Indications for Procedure: The patient is a 71-year-old male, with morbid obesity, who has had bilateral large volume renal stones. He underwent a successful percutaneous nephrostolithotomy on the right side a couple weeks back. He now comes for percutaneous nephrostolithotomy to a large volume of kidney stones including a partial staghorn in the upper pole greater than 2 cm as well as middle and lower pole stones each equivalent of a centimeter and half. He comes for this procedure Description of Procedure: The patient is brought to the operating suite he is given a successful general endotracheal anesthesia. Placed in a frog position on the [facility] with 2 rolls under his hips. Cystoscopy Foroblique lens and 22-Algerian sheath identifies a normal urethra. The prostate is not obstructing. The left ureteral orifice is identified and a difficult angle but with an 025 wire I feel unable to pass the reentry occluding balloon catheter up in the renal pelvis. It is secured to Rodriguez. The patient then placed in prone position to care to airways and extremities Dr. pandey radiology enters the procedure to performed percutaneous access. It became evident that I did not have the occluding balloon up in the proximal ureter. He attempts to a direct stick on the lower pole stone but is unable to do so. We take the patient out of prone position back on the transport [facility] and then place him on the operating table at the end of the table in the dorsal lithotomy position with sterile prep and drape. I re-performed cystoscopy. The left ureteral orifice is identified. Through this the 035 wire is passed up into the renal pelvis confirmed fluoroscopically. Over this is passed a 5- Algerian occluding balloon catheter. Is secured it to Rodriguez. The patient again is moved back to the transport [facility] and then rolled onto his stomach in a prone position with care to airways and extremities. Dr. Amaya enters the procedure and perform access to an upper pole calyx. We dilate the tract to 30 -Algerian. I introduced the rigid sheath into the collecting system. I remove the large volume of stone on the upper pole using ultrasound. I then pass a flexible scope into the middle pole and remove fragments with a stone basket.I move in the lower pole there is a very large stone almost 2 cm. It is broken up with the laser lithotripsy. I'm able to basket these fragments. at the end of the procedure there is no remaining stone. a 12 fr j nephrostomy tube was placed. The patient's awake and returned recovery room good condition. He tolerated procedure well be placed in the hospital postoperatively blood loss is 200 mL
--- NOTE | 2017-06-21 12:03 | FL ---
EXAMINATION TYPE: FL Perc Nephrostomy New Access DATE OF EXAM: 06/21/2017 COMPARISON: NONE HISTORY: Left percutaneous nephrostomy prior to nephrolithotomy Procedure had been discussed with the patient by Dr. Hanley, risks, benefits, alternatives, were dis cussed and any questions were answered. Informed consent was obtained. The patient was in a semipro ne position prepped and draped on the OR table in the usual sterile fashion. Utilizing a 15 cm lengt h Chiba needle a single pass was made into a lower pole posterior calyx under fluoroscopic guidance. An 0.018 guidewire is passed through the needle and there was placement of a 6-Maori catheter sheat h system. There was conversion to a 0.035 system was performed with passage of a guidewire into the ureter utilizing a directional catheter. A second safety wire was placed. Remaining portion of pro cedure performed by . Approximately 15.36 minutes of fluoroscopy was provided. IMPRESSION: 1. Successful intraoperative left nephrostomy prior to nephrolithotomy.
[2017-06-21] MEDS: HYDROmorphone 0.5 MG/0.5 ML SYRINGE IVP PRN ×2 (12:30→12:37)
[2017-06-21] MEDS: KETOROLAC 30 MG/ML 1 ML VIAL IVP SCH ×2 (14:13→18:21)
[2017-06-21] MEDS ORDERED: ARTIFICIAL TEARS-HYPROMELLOSE DROPS 15 ML BTL BOTH EYES PRN (15:30)
[2017-06-21] MEDS: DEXTROSE 5%-0.45% NACL 1,000 ML IV SCH (15:34)
[2017-06-21] MEDS: ONDANSETRON 4 MG/2 ML VIAL IVP PRN (19:14)
[2017-06-21] MEDS: ATORVASTATIN 10 MG TAB PO SCH (21:10)
[2017-06-21] MEDS: METOPROLOL TARTRATE 50 MG TAB PO SCH (21:10)
[2017-06-21] MEDS: CIPROFLOXACIN HCL 500 MG TAB PO SCH (21:10)
[2017-06-21] MEDS: SENNOSIDES-DOCUSATE SODIUM 1 EACH TAB PO SCH (21:11)
[2017-06-22] MEDS: DEXTROSE 5%-0.45% NACL 1,000 ML IV SCH ×3 (05:43→18:17)
[2017-06-22] MEDS: KETOROLAC 30 MG/ML 1 ML VIAL IVP SCH ×5 (06:31→23:25)
[2017-06-22] MEDS: METOPROLOL TARTRATE 50 MG TAB PO SCH ×2 (08:48→21:05)
[2017-06-22] MEDS: CIPROFLOXACIN HCL 500 MG TAB PO SCH ×2 (08:49→20:59)
[2017-06-22] MEDS: FLUTICASONE 50MCG/SPRAY NASAL 16GM EA NOSTRIL SCH (08:50)
[2017-06-22] MEDS: ONDANSETRON 4 MG/2 ML VIAL IVP PRN (10:25)
--- NOTE | 2017-06-22 11:13 | P.PN ---
Subjective Progress Note Date: 06/22/17 The patient is in his first postoperative day from a left percutaneous nephrostolithotomy, large. The urine has old blood both nephrostomy and urethral catheter. His vital signs are stable. He's had some nausea but seems to be better this morning. He is just getting up this morning. We will keep him in the hospital another 24 hours to clear the urine and make sure he has steady on his feet for discharge. I will leave the Rodriguez until tomorrow. Objective - Vital Signs Vital signs: Vital Signs Temp 98.8 F 06/22/17 07:00 Pulse 78 06/22/17 07:00 Resp 18 06/22/17 07:00 BP 111/75 06/22/17 07:00 Pulse Ox 96 06/22/17 07:00 Intake & Output 06/21/17 06/22/17 06/22/17 18:59 06:59 18:59 Intake Total 2300 1390 Output Total 1600 1030 Balance 700 360 Weight 149.685 kg Intake: IV 2300 Intake, IV Titration 800 Amount Dextrose 5%-0.45% NaCl 1, 800 000 ml @ 100 mls/hr IV . Q10H [facility] Rx#:[id number] Oral 590 Output: Drainage 150 Left Lower Back 150 Urine 1250 1030 Estimated Blood Loss 200 Other: Voiding Method Indwelling Catheter Indwelling Catheter Indwelling Catheter
[2017-06-22] MEDS: ATORVASTATIN 10 MG TAB PO SCH (20:59)
[2017-06-22] MEDS: SENNOSIDES-DOCUSATE SODIUM 1 EACH TAB PO SCH (21:00)
[2017-06-22 22:02] VITALS: RESP 16
[2017-06-23] MEDS: ACETAMINOPHEN TAB 325 MG TAB PO PRN ×2 (03:51→10:12)
[2017-06-23] MEDS: KETOROLAC 30 MG/ML 1 ML VIAL IVP SCH (05:13)
[2017-06-23] MEDS: DEXTROSE 5%-0.45% NACL 1,000 ML IV SCH (05:24)
--- NOTE | 2017-06-23 07:33 | P.DS ---
Providers Attending physician: Melvin Hanley Primary care physician: Stated None Hospital Course: The patient was admitted to the hospital on 06/21 for a left percutaneous nephrostolithotomy. He had a large volume of stone. He had too much pain to be discharged home yesterday. He felt much better as the day went on. He is ready for discharge this morning. His urine is clearing. His vital signs are stable. He is tolerating his diet. He will be discharged home care of his family, regular diet and limited activity. He'll be discharged home with the nephrostomy tube. He'll follow-up in the office Monday or Monday next week for nephrostomy tube removal. He'll resume all his home medications except his Coumadin which will be held until I make better determination for resumption Patient Condition at Discharge: Good Plan - Discharge Summary Discharge Rx Participant: No New Discharge Prescriptions: No Action Simvastatin 20 mg PO HS Warfarin [Coumadin] 5 mg PO DAILY Fluticasone Nasal Chase [Flonase Nasal Chase] 1 spray EA NOSTRIL DAILY Metoprolol Tartrate [Lopressor] 50 mg PO BID Ciprofloxacin HCl [Cipro] 500 mg PO Q12HR Silodosin [Rapaflo] 8 mg PO DAILY PRN PRN Reason: urinate Discharge Medication List Simvastatin 20 mg PO HS 02/21/15 [History] Fluticasone Nasal Chase [Flonase Nasal Chase] 1 spray EA NOSTRIL DAILY 04/06/17 [History] Warfarin [Coumadin] 5 mg PO DAILY 04/06/17 [History] Metoprolol Tartrate [Lopressor] 50 mg PO BID 05/19/17 [History] Ciprofloxacin HCl [Cipro] 500 mg PO Q12HR 06/20/17 [History] Silodosin [Rapaflo] 8 mg PO DAILY PRN 06/20/17 [History] Follow up Appointment(s)/Referral(s): Melvin Hanley MD [STAFF PHYSICIAN] - 06/26/17 Activity/Diet/Wound Care/Special Instructions: Home with nephrostomy tube, hold Coumadin until I tell the patient he can resume Discharge Disposition: HOME SELF-CARE
[2017-06-23 07:44] VITALS: BP 135/75; PULSE 89; TEMP 97.9
[2017-06-23] MEDS: METOPROLOL TARTRATE 50 MG TAB PO SCH (07:44)
[2017-06-23] MEDS: FLUTICASONE 50MCG/SPRAY NASAL 16GM EA NOSTRIL SCH (07:44)
[2017-06-23] MEDS: CIPROFLOXACIN HCL 500 MG TAB PO SCH (07:44)
== END 2017-06-23 10:25 | disposition home or self-care (01) ==
LOC: OR 06:28 → 5MS5E 11:25 → OR 06-23 10:25
PROVIDERS: ATTEND Urology
DX: N13.2 Hydronephrosis with renal and ureteral calculous obstruction (principal); I48.91 Unspecified atrial fibrillation; N40.1 Benign prostatic hyperplasia with lower urinary tract symptoms; R35.0 Frequency of micturition; I10 Essential (primary) hypertension; E78.00 Pure hypercholesterolemia, unspecified; N28.9 Disorder of kidney and ureter, unspecified; E66.01 Morbid (severe) obesity due to excess calories; Z68.41 Body mass index [BMI] 40.0-44.9, adult; Z88.1 Allergy status to other antibiotic agents; Z79.01 Long term (current) use of anticoagulants; Z79.899 Other long term (current) drug therapy; Z88.0 Allergy status to penicillin; Z88.2 Allergy status to sulfonamides; Z80.42 Family history of malignant neoplasm of prostate; Z82.49 Family history of ischemic heart disease and other diseases of the circulatory system; Z79.51 Long term (current) use of inhaled steroids; R11.0 Nausea
CPT/HCPCS: 50081; 50395; 85610; 82365; 74000; 50432; C1769 ×4; C1894; C1729; J2250; J1100; J2710; Q9967; J0690; J2405 ×2; J2001; J3010; J1885 ×2; J1170 ×2; J2370; J0330; J2704; 86850; 86900; 86901

== ENCOUNTER 2019-02-28 10:51 | Inpatient (IN) | payer MEDICARE ==
[2019-02-28] MEDS ORDERED: SODIUM CHLORIDE 0.9% 500 ML 500 ML IV STA (11:12)
--- NOTE | 2019-02-28 11:19 | ED ---
General Adult HPI - General Chief complaint: Chest Pain Stated complaint: "heart problems" Time Seen by Provider: 02/28/19 11:01 Source: patient Mode of arrival: wheelchair Limitations: no limitations - History of Present Illness Initial comments: Dictation was produced using [employer] dictation software. please excuse any grammatical, word or spelling errors. Chief Complaint: 73-year-old male past history of atrial fibrillation dyslipidemia hypertension presents with shortness of breath 1 week. History of Present Illness: 73-year-old male who presents with chief complaint of shortness of breath and generalized weakness times one week. Patient states he has past medical history of atrial fibrillation. Reports that he has persistent shortness of breath. Percents worse especially with exertion. Denies any chest pain. Patient has no pain complaints. He does report that his symptoms are improved with lying flat and worse when sitting up. Patient has past medical history of atrial fibrillation for which he takes Coumadin for. Denies any swelling in his legs. No history of blood clots. Patient has been compliant with his medications. Denies any constitutional symptoms. No upper respiratory symptoms either. The ROS documented in this emergency department record has been reviewed and confirmed by me. Those systems with pertinent positive or negative responses have been documented in the HPI. All other systems are other negative and/or noncontributory. PHYSICAL EXAM: General Impression: Alert and oriented x3, not in acute distress HEENT: Normocephalic atraumatic, extra-ocular movements intact, pupils equal and reactive to light bilaterally, mucous membranes moist. Cardiovascular: Heart regular rate and rhythm, S1&S2 audible, no murmurs, rubs or gallops Chest: Lungs clear to auscultation bilaterally, no rhonchi, no wheeze, no rales Abdomen: Bowel sounds present, abdomen soft, non-tender, non-distended, no organomegaly Musculoskeletal: Pulses present and equal in all extremities, no peripheral edema Motor: no focal deficits noted Neurological: CN II-XII grossly intact, no focal motor or sensory deficits noted Skin: Intact with no visualized rashes Psych: Normal affect and mood ED course: 73-year-old male presents with chief complaint of shortness of breath. He has multiple comorbid conditions. Vital signs upon arrival are within acceptable limits. Patient does seem slightly winded however able to complete a full sentence. Especially as retractions or signs of significant respiratory distress.Laboratory evaluation obtained. Patient is nontoxic dose of 14.8, coag panel shows INR 3.3 which is slightly supratherapeutic. Metabolic panel shows potassium 5.2 with slight hemolysis. There is mild non-gap acidosis. Slight elevated renal markers. Patient is a premature peptide of 1930. No elevated cardiac enzymes. Chest x-ray obtained showing enlarged cardiac mediastinal silhouette there is trace pleural effusions which represents likely congestive heart failure. Given patient's clinical presentation is concerned that this is new onset heart failure. Patient is well-appearing currently at rest. Discussed slightly nauseated. We'll admit patient with cardiology consultation. Patient is understandable agreeable to disposition. Patient given 40 mg of IV Lasix. EKG interpretation: Ventricular rate 76, atrial fibrillation, care is 146, QTC 472, right bundle branch block. No IN prolongation, no QTC prolongation, no ST or T-wave changes noted. EKG compared to 03/06/2015 showing no changes. Overall, this EKG is unremarkable - Related Data Home Medications Medication Instructions Recorded Confirmed RX: Simvastatin 20 mg PO HS 02/21/15 02/28/19 Warfarin [Coumadin] 5 mg PO HS 04/06/17 02/28/19 RX: Metoprolol Tartrate [Lopressor] 50 mg PO BID 05/19/17 02/28/19 Ibuprofen [Motrin Ib] 600 mg PO TID PRN 02/28/19 02/28/19 Allergies Allergy/AdvReac Type Severity Reaction Status Date / Time oxytetracycline Allergy Rash/Hives Verified 02/28/19 11:29 [From Terramycin] oxytetracycline HCl Allergy Rash/Hives Verified 02/28/19 11:29 [From Terramycin] Penicillins Allergy Rash/Hives Verified 02/28/19 11:29 Sulfa (Sulfonamide Allergy Rash/Hives Verified 02/28/19 11:29 Antibiotics) ciprofloxacin [From Cipro] AdvReac Abdominal Verified 02/28/19 11:29 Pain, NAUSEA Review of Systems ROS Statement: Those systems with pertinent positive or pertinent negative responses have been documented in the HPI. ROS Other: All systems not noted in ROS Statement are negative. Past Medical History Past Medical History: Atrial Fibrillation, Chest Pain / Angina, Hyperlipidemia, Hypertension, Osteoarthritis (OA) Additional Past Medical History / Comment(s): afib History of Any Multi-Drug Resistant Organisms: None Reported Past Surgical History: Hernia Repair, Orthopedic Surgery Additional Past Surgical History / Comment(s): lump removed from throat, bilateral knee replacement, right hip replacement Past Anesthesia/Blood Transfusion Reactions: No Reported Reaction Past Psychological History: No Psychological Hx Reported Smoking Status: Never smoker Past Alcohol Use History: None Reported Past Drug Use History: None Reported - Past Family History Father History Unknown: Yes Family Medical History: Myocardial Infarction ([place]) Additional Family Medical History / Comment(s): prostate cancer Mother History Unknown: Yes Family Medical History: Cancer Brother(s) History Unknown: Yes Family Medical History: Cancer Additional Family Medical History / Comment(s): prostate Sister(s) History Unknown: Yes Family Medical History: Cancer Additional Family Medical History / Comment(s): ovarian, throat/neck cancer Daughter(s) History Unknown: Yes Family Medical History: Thyroid Disorder Additional Family Medical History / Comment(s): hypothyroid General Exam Limitations: no limitations Course Vital Signs 02/28/19 10:53 Temperature 97.6 F Pulse Rate 67 Respiratory 22 Rate Blood Pressure 124/85 O2 Sat by Pulse 95 Oximetry Medical Decision Making - Lab Data Result diagrams: 02/28/19 11:20 02/28/19 11:20 Lab Results 02/28/19 02/28/19 02/28/19 Range/Units 11:20 11:20 11:20 WBC 14.8 H (3.8-10.6) k/uL RBC 5.72 (4.30-5.90) m/uL Hgb 17.9 H (13.0-17.5) gm/dL Hct 55.0 H (39.0-53.0) % MCV 96.1 (80.0-100.0) fL MCH 31.3 (25.0-35.0) pg MCHC 32.6 (31.0-37.0) g/dL RDW 16.0 H (11.5-15.5) % Plt Count 188 (150-450) k/uL Neutrophils % 89 % Lymphocytes % 4 % Monocytes % 6 % Eosinophils % 1 % Basophils % 0 % Neutrophils # 13.2 H (1.3-7.7) k/uL Lymphocytes # 0.5 L (1.0-4.8) k/uL Monocytes # 0.9 (0-1.0) k/uL Eosinophils # 0.1 (0-0.7) k/uL Basophils # 0.0 (0-0.2) k/uL PT (9.0-12.0) sec INR (<1.2) APTT (22.0-30.0) sec Sodium 139 (137-145) mmol/L Potassium 5.2 H (3.5-5.1) mmol/L Chloride 110 H (98-107) mmol/L Carbon Dioxide 21 L (22-30) mmol/L Anion Gap 8 mmol/L BUN 24 H (9-20) mg/dL Creatinine 1.57 H (0.66-1.25) mg/dL Est GFR (CKD-EPI)AfAm 49 (>60 ml/min/1.73 sqM) Est GFR (CKD-EPI)NonAf 43 (>60 ml/min/1.73 sqM) Glucose 123 H (74-99) mg/dL Calcium 9.3 (8.4-10.2) mg/dL Magnesium 2.0 (1.6-2.3) mg/dL Total Bilirubin 1.2 (0.2-1.3) mg/dL AST 23 (17-59) U/L ALT 17 L (21-72) U/L Alkaline Phosphatase 58 (38-126) U/L Troponin I (0.000-0.034) ng/mL NT-Pro-B Natriuret Pep 1930 pg/mL Total Protein 7.0 (6.3-8.2) g/dL Albumin 3.9 (3.5-5.0) g/dL 02/28/19 02/28/19 Range/Units 11:20 11:20 WBC (3.8-10.6) k/uL RBC (4.30-5.90) m/uL Hgb (13.0-17.5) gm/dL Hct (39.0-53.0) % MCV (80.0-100.0) fL MCH (25.0-35.0) pg MCHC (31.0-37.0) g/dL RDW (11.5-15.5) % Plt Count (150-450) k/uL Neutrophils % % Lymphocytes % % Monocytes % % Eosinophils % % Basophils % % Neutrophils # (1.3-7.7) k/uL Lymphocytes # (1.0-4.8) k/uL Monocytes # (0-1.0) k/uL Eosinophils # (0-0.7) k/uL Basophils # (0-0.2) k/uL PT 31.9 H (9.0-12.0) sec INR 3.3 H (<1.2) APTT 38.0 H (22.0-30.0) sec Sodium (137-145) mmol/L Potassium (3.5-5.1) mmol/L Chloride (98-107) mmol/L Carbon Dioxide (22-30) mmol/L Anion Gap mmol/L BUN (9-20) mg/dL Creatinine (0.66-1.25) mg/dL Est GFR (CKD-EPI)AfAm (>60 ml/min/1.73 sqM) Est GFR (CKD-EPI)NonAf (>60 ml/min/1.73 sqM) Glucose (74-99) mg/dL Calcium (8.4-10.2) mg/dL Magnesium (1.6-2.3) mg/dL Total Bilirubin (0.2-1.3) mg/dL AST (17-59) U/L ALT (21-72) U/L Alkaline Phosphatase (38-126) U/L Troponin I <0.012 (0.000-0.034) ng/mL NT-Pro-B Natriuret Pep pg/mL Total Protein (6.3-8.2) g/dL Albumin (3.5-5.0) g/dL Disposition Clinical Impression: Dyspnea Disposition: ADMITTED IP TO THIS HOSP Condition: Fair Referrals: Audrey Hall III, MD [Primary Care Provider] - 1-2 days Decision Time: 12:23
[2019-02-28 11:39] LABS: Basophils % (A) 0 %; Eosinophils # (A) 0.1 k/uL (0-0.7); Eosinophils % (A) 1 %; HGB 17.9 gm/dL (13.0-17.5); Lymphocytes # (A) 0.5 k/uL (1.0-4.8); Lymphocytes % (A) 4 %; MCH 31.3 pg (25.0-35.0); MCHC 32.6 g/dL (31.0-37.0); MCV 96.1 fL (80.0-100.0); Mean Platelet Volume 8.4; Monocytes # (A) 0.9 k/uL (0-1.0); Monocytes % (A) 6 %; Neutrophils # (A) 13.2 k/uL (1.3-7.7); Neutrophils % (A) 89 %; Platelet Count 188 k/uL (150-450); RBC 5.72 m/uL (4.30-5.90); WBC 14.8 k/uL (3.8-10.6)
[2019-02-28 11:46] LABS: INR 3.3 (<1.2); Prothrombin Time 31.9 sec (9.0-12.0)
[2019-02-28 11:57] LABS: Albumin 3.9 g/dL (3.5-5.0); Calcium 9.3 mg/dL (8.4-10.2); Potassium 5.2 mmol/L (3.5-5.1); Total Bilirubin 1.2 mg/dL (0.2-1.3)
--- NOTE | 2019-02-28 12:03 | XR ---
EXAMINATION TYPE: XR chest 2V DATE OF EXAM: 02/28/2019 COMPARISON: 05/17/2017 HISTORY: Shortness of breath and chest pain for 2 days TECHNIQUE: Frontal and lateral views of the chest are obtained. FINDINGS: There is an enlarged cardiomediastinal silhouette. Bibasilar opacities are seen that are s trand-like. No sizable pleural effusion or pneumothorax. Generalized osseous demineralization. Chroni c slight right hemidiaphragm elevation. Trace pleural effusions are seen. IMPRESSION: Enlarged cardiac mediastinal silhouette and bibasilar opacities that are strand-like, li selena atelectasis. There are trace pleural effusions that may be sequela of congestive heart failure.
[2019-02-28 13:37] VITALS: BMI 46.0
--- NOTE | 2019-02-28 13:57 | P.CRDCN ---
History of Present Illness Consult date: 02/28/19 Chief complaint: Not feeling well History of present illness: This is a pleasant 73-year-old gentleman who sees Dr. Jones in the office on regular basis with a past medical history significant for morbid obesity, chronic persistent atrial fibrillation on oral anticoagulation with Coumadin, hypertension, dyslipidemia, was brought to the emergency room with his because the patient is not feeling well. The patient somewhat is a poor histo shaina. He states that for the last 2-3 weeks, he has been more short of breath with exertion. He stated it does not take much to heal the shortness of breath. Sometimes even getting up to stand make him short of breath. Some other times, getting the conversation is enough to make him short of breath. Beside that, he denies any orthopnea and denies any paroxysmal nocturnal dyspnea. He stated t hat he did not have any lower extremities edema before he presented to the hospital. According to him, he did not gain any weight, but according to his , he did gain weight. The amount of weight is unknown at this point. The patient stated that his symptoms really triggered 3 weeks ago after he fell when he was trying to help his at home. No indication that he lost his consciousness. But beside that, the patient describes intermittent episodes of chest discomfort, in the mid of the chest, as a sharp kind of discomfort, without any radiation to the arm or neck or shoulders and without any associated symptoms. The patient states clearly that the chest discomfort is not exertion related. He is somewhat is a poor historian. He denies any fever or chills, cough or sputum, nausea or vomiting, or loss of consciousness or syncope. The EKG revealed atrial fibrillation with RBBB and without any ischemic ST or T-wave abnormalities concerning for ischemia. The first set of troponin was checked and came in to be unremarkable. The chest x-ray showed small bilateral pleural effusion. The rest of blood work came in to be unremarkable. The patient does not take any diuretics at home. He stated that he was compliant with his medication but she stated that he was not compliant with his diet. She stated that he is pretty much everything. Past Medical History Past Medical History: Atrial Fibrillation, Chest Pain / Angina, Hyperlipidemia, Hypertension, Osteoarthritis (OA) Additional Past Medical History / Comment(s): afib History of Any Multi-Drug Resistant Organisms: None Reported Past Surgical History: Hernia Repair, Orthopedic Surgery Additional Past Surgical History / Comment(s): lump removed from throat, bilateral knee replacement, right hip replacement Past Anesthesia/Blood Transfusion Reactions: No Reported Reaction Past Psychological History: No Psychological Hx Reported Smoking Status: Never smoker Past Alcohol Use History: None Reported Additional Past Alcohol Use History / Comment(s): tall beer, and mix drink daily Past Drug Use History: None Reported - Past Family History Father History Unknown: Yes Family Medical History: Myocardial Infarction ([place]) Additional Family Medical History / Comment(s): prostate cancer Mother History Unknown: Yes Family Medical History: Cancer Brother(s) History Unknown: Yes Family Medical History: Cancer Additional Family Medical History / Comment(s): prostate Sister(s) History Unknown: Yes Family Medical History: Cancer Additional Family Medical History / Comment(s): ovarian, throat/neck cancer Daughter(s) History Unknown: Yes Family Medical History: Thyroid Disorder Additional Family Medical History / Comment(s): hypothyroid Medications and Allergies Home Medications Medication Instructions Recorded Confirmed Type Simvastatin 20 mg PO HS 02/21/15 02/28/19 History Warfarin [Coumadin] 5 mg PO HS 04/06/17 02/28/19 History Metoprolol Tartrate [Lopressor] 50 mg PO BID 05/19/17 02/28/19 History Ibuprofen [Motrin Ib] 600 mg PO TID PRN 02/28/19 02/28/19 History Allergies Allergy/AdvReac Type Severity Reaction Status Date / Time oxytetracycline Allergy Rash/Hives Verified 02/28/19 11:29 [From Terramycin] oxytetracycline HCl Allergy Rash/Hives Verified 02/28/19 11:29 [From Terramycin] Penicillins Allergy Rash/Hives Verified 02/28/19 11:29 Sulfa (Sulfonamide Allergy Rash/Hives Verified 02/28/19 11:29 Antibiotics) ciprofloxacin [From Cipro] AdvReac Abdominal Verified 02/28/19 11:29 Pain, NAUSEA Physical Exam Vitals: Vital Signs Temp Pulse Resp BP Pulse Ox 02/28/19 12:00 81 18 112/66 92 L 02/28/19 11:31 77 18 137/88 95 02/28/19 10:53 97.6 F 67 22 124/85 95 Intake and Output 02/27/19 02/28/1919 22:59 06:59 14:59 Intake Total 100 Balance 100 Intake: Intake, IV Titration 100 Amount Sodium Chloride 0.9% 1, 100 000 ml @ 20 mls/hr IV . Q24H [facility] Rx#:[id number] Other: Weight 154.221 kg - Constitutional General appearance: no acute distress - Respiratory Respiratory: bilateral: diminished - Cardiovascular Rhythm: irregularly irregular Heart sounds: normal: S1, S2 Results 02/28/19 11:20 02/28/19 11:20 Cardiac Enzymes 02/28/19 02/28/19 Range/Units 11:20 11:20 AST 23 (17-59) U/L Troponin I <0.012 (0.000-0.034) ng/mL Coagulation 02/28/19 Range/Units 11:20 PT 31.9 H (9.0-12.0) sec APTT 38.0 H (22.0-30.0) sec CBC 02/28/19 Range/Units 11:20 WBC 14.8 H (3.8-10.6) k/uL RBC 5.72 (4.30-5.90) m/uL Hgb 17.9 H (13.0-17.5) gm/dL Hct 55.0 H (39.0-53.0) % Plt Count 188 (150-450) k/uL Comprehensive Metabolic Panel 02/28/19 Range/Units 11:20 Sodium 139 (137-145) mmol/L Potassium 5.2 H (3.5-5.1) mmol/L Chloride 110 H (98-107) mmol/L Carbon Dioxide 21 L (22-30) mmol/L BUN 24 H (9-20) mg/dL Creatinine 1.57 H (0.66-1.25) mg/dL Glucose 123 H (74-99) mg/dL Calcium 9.3 (8.4-10.2) mg/dL AST 23 (17-59) U/L ALT 17 L (21-72) U/L Alkaline Phosphatase 58 (38-126) U/L Total Protein 7.0 (6.3-8.2) g/dL Albumin 3.9 (3.5-5.0) g/dL Current Medications Generic Name Dose Route Start Last Admin Trade Name Freq PRN Reason Stop Dose Admin Atorvastatin Calcium 10 mg 02/28/19 21:00 Lipitor PO HS MAGGIE Furosemide 20 mg 02/28/19 14:00 Lasix IV Q12HR MAGGIE Sodium Chloride 1,000 mls @ 20 mls/hr 02/28/19 12:30 Saline 0.9% IV .Q24H MAGGIE Metoprolol Tartrate 50 mg 02/28/19 21:00 Lopressor PO BID MAGGIE Warfarin Sodium 5 mg 02/28/19 18:00 Coumadin PO DAILY@1800 [facility] Intake and Output 02/27/19 02/28/19 02/28/19 22:59 06:59 14:59 Intake Total 100 Balance 100 Intake: Intake, IV Titration 100 Amount Sodium Chloride 0.9% 1, 100 000 ml @ 20 mls/hr IV . Q24H [facility] Rx#:[id number] Other: Weight 154.221 kg Patient Weight 03/01/19 06:59 Weight 154.221 kg 02/28/19 11:20 02/28/19 11:20 Assessment and Plan Assessment: Assessment #1 progressive exertional dyspnea #2 intermittent episodes of chest discomfort #3 chronic atrial fibrillation was controlled heart rate #4 morbid obesity #5 hypertension #6 dyslipidemia Plan #1 mild congestive heart failure exacerbation, etiology unknown at this point #2 severe underlying coronary artery disease to be ruled out #3 acute coronary syndrome to be ruled out. #4 I would start the patient on a small dose of diuretics. #5 monitor the kidney function and electrolytes #6 follow up with the serial cardiac enzymes #7 obtain an echocardiogram was Doppler #8 follow-up with the patient Thank you for allowing us participate in his care
[2019-02-28] MEDS ORDERED: FUROSEMIDE 10 MG/ML 2 ML VIAL IV SCH (14:00)
[2019-02-28] MEDS ORDERED: ONDANSETRON 4 MG/2 ML VIAL IVP PRN (16:16)
--- NOTE | 2019-02-28 17:23 | P.HPIM ---
History of Present Illness 68-year-old pleasant gentleman came in a came to was department after a fall patient the doesn't give me a great history he States he came in because had a fall few days ago and patient appears to have mechanical falls from what he is explaining but he is unsure whether had a syncopal episode patient does have history of atrial fibrillation on anti-correlation with Coumadin and INR is 3.3. Patient was believed to have heart failure patient is morbidly obese because of the obesity chest x-ray appears hazy but does not appear to have heart failure when I reviewed the x-ray clinically patient doesn't have any JVD no pedal edema . Patient was started on Lasix echocardiogram was ordered. Patient after after getting into the room stood up and actually threw up patient although denied any significant symptoms of from epigastric abdominal pain burning sensation but may still have gastritis patient had renal stones in the past at the time patient did not have any pain at the time. Patient EKG revealed atrial fibrillation wi th right bundle-branch block although it appears to be chronic A. fib rate controlled at this time. Troponins were negative. Patient's Lasix will be this can urine I believe patient is actually intravascularly volume depleted and hemoconcentrated I'll actually start him IV fluids will start him on Protonix TSH will be obtained etiology and patient is comparing of generalized weakness and the body aches etiology of his symptoms is not clear at this time. Although my suspicion is extremely low that patient has heart failure. BNP is 1900. Patient denied any shortness of breath orthopnea or paroxysmal nocturnal dyspnea Review of Systems REVIEW OF SYSTEMS: CONSTITUTIONAL: No fever, no malaise, complaining of generalized body aches HEENT: No recent visual problems or hearing problems. Denied any sore throat. CARDIOVASCULAR: No chest pain, orthopnea, PND, no palpitations, no syncope. PULMONARY: No shortness of breath, no cough, no hemoptysis. GASTROINTESTINAL: No diarrhea, no nausea, no vomiting, no abdominal pain. NEUROLOGICAL: No headaches, no weakness, no numbness. HEMATOLOGICAL: Denies any bleeding or petechiae. GENITOURINARY: Denies any burning micturition, frequency, or urgency. MUSCULOSKELETAL/RHEUMATOLOGICAL: Denies any joint pain, swelling, or any muscle pain. ENDOCRINE: Denies any polyuria or polydipsia. The rest of the 14-point review of systems is negative. Past Medical History Past Medical History: Atrial Fibrillation, Chest Pain / Angina, Hyperlipidemia, Hypertension, Osteoarthritis (OA) Additional Past Medical History / Comment(s): afib History of Any Multi-Drug Resistant Organisms: None Reported Past Surgical History: Hernia Repair, Orthopedic Surgery Additional Past Surgical History / Comment(s): lump removed from throat, bilateral knee replacement, right hip replacement Past Anesthesia/Blood Transfusion Reactions: No Reported Reaction Past Psychological History: No Psychological Hx Reported Smoking Status: Never smoker Past Alcohol Use History: None Reported Additional Past Alcohol Use History / Comment(s): tall beer, and mix drink daily Past Drug Use History: None Reported - Past Family History Father History Unknown: Yes Family Medical History: Myocardial Infarction ([place]) Additional Family Medical History / Comment(s): prostate cancer Mother History Unknown: Yes Family Medical History: Cancer Brother(s) History Unknown: Yes Family Medical History: Cancer Additional Family Medical History / Comment(s): prostate Sister(s) History Unknown: Yes Family Medical History: Cancer Additional Family Medical History / Comment(s): ovarian, throat/neck cancer Daughter(s) History Unknown: Yes Family Medical History: Thyroid Disorder Additional Family Medical History / Comment(s): hypothyroid Medications and Allergies Home Medications Medication Instructions Recorded Confirmed Type Simvastatin 20 mg PO HS 02/21/15 02/28/19 History Warfarin [Coumadin] 5 mg PO HS 04/06/17 02/28/19 History Metoprolol Tartrate [Lopressor] 50 mg PO BID 05/19/17 02/28/19 History Ibuprofen [Motrin Ib] 600 mg PO TID PRN 02/28/19 02/28/19 History Allergies Allergy/AdvReac Type Severity Reaction Status Date / Time oxytetracycline Allergy Rash/Hives Verified 02/28/19 11:29 [From Terramycin] oxytetracycline HCl Allergy Rash/Hives Verified 02/28/19 11:29 [From Terramycin] Penicillins Allergy Rash/Hives Verified 02/28/19 11:29 Sulfa (Sulfonamide Allergy Rash/Hives Verified 02/28/19 11:29 Antibiotics) ciprofloxacin [From Cipro] AdvReac Abdominal Verified 02/28/19 11:29 Pain, NAUSEA Physical Exam Vitals: Vital Signs Temp Pulse Pulse Resp BP BP Pulse Ox 02/28/19 13:00 97.9 F 89 137/90 95 02/28/19 12:00 81 18 112/66 92 L 02/28/19 11:31 77 18 137/88 95 02/28/19 10:53 97.6 F 67 22 124/85 95 Intake and Output 02/28/19 02/28/19 02/28/19 06:59 14:59 22:59 Intake Total 340 Balance 340 Intake: Intake, IV Titration 100 Amount Sodium Chloride 0.9% 1, 100 000 ml @ 20 mls/hr IV . Q24H [facility], [facility]1983 Rx#:[id number] Oral 240 Other: Weight 154.221 kg PHYSICAL EXAMINATION: GENERAL: The patient is alert and oriented x3, not in any acute distress. Or believe these HEENT: Pupils are round and equally reacting to light. EOMI. No scleral icterus. No conjunctival pallor. Normocephalic, atraumatic. No pharyngeal erythema. No thyromegaly. CARDIOVASCULAR: S1 and S2 present. No murmurs, rubs, or gallops. No JVD irregul yunior irregular rhythm PULMONARY: Chest is clear to auscultation, no wheezing or crackles. ABDOMEN: Soft, nontender, nondistended, normoactive bowel sounds. No palpable organomegaly. MUSCULOSKELETAL: No joint swelling or deformity. EXTREMITIES: No cyanosis, clubbing, or pedal edema. NEUROLOGICAL: Gross neurological examination did not reveal any focal deficits. SKIN: No rashes. Results CBC & Chem 7: 02/28/19 11:20 02/28/19 11:20 Labs: Abnormal Lab Results - Last 24 Hours (Table) 02/28/19 02/28/19 02/28/19 Range/Units 11:20 11:20 11:20 WBC 14.8 H (3.8-10.6) k/uL Hgb 17.9 H (13.0-17.5) gm/dL Hct 55.0 H (39.0-53.0) % RDW 16.0 H (11.5-15.5) % Neutrophils # 13.2 H (1.3-7.7) k/uL Lymphocytes # 0.5 L (1.0-4.8) k/uL PT 31.9 H (9.0-12.0) sec INR 3.3 H (<1.2) APTT 38.0 H (22.0-30.0) sec Potassium 5.2 H (3.5-5.1) mmol/L Chloride 110 H (98-107) mmol/L Carbon Dioxide 21 L (22-30) mmol/L BUN 24 H (9-20) mg/dL Creatinine 1.57 H (0.66-1.25) mg/dL Glucose 123 H (74-99) mg/dL ALT 17 L (21-72) U/L Thrombosis Risk Factor Assmnt - Choose All That Apply Each Factor Represents 1 point: Obesity (BMI >25) Each Risk Factor Represents 3 Points: Age 75 years or older Thrombosis Risk Factor Assessment Total Risk Factor Score: 4 Thrombosis Risk Factor Assessment Level: Moderate Risk Assessment and Plan Plan: - generalized weakness: Etiology is not clear will obtain TSH. I do not believe heart failure is contributing to that my suspicion is low for her. Heart failure exacerbation in fact patient appears to be intravascularly volume depleted patient was started on IV fluids and Lasix will be discontinued elevating echocardiogram. -Chronic A. fib presently rate controlled continue with his home medications Coumadin dose will be decreased to 4 mg target INR is 2-3 -Nausea vomiting may be peptic ulcer disease or gastritis patient will be started on Protonix -Morbid obesity -Hypertension -Hyperlipidemia
[2019-02-28] MEDS: PANTOPRAZOLE 40 MG/10 ML VIAL IVP SCH (17:59)
[2019-02-28] MEDS: SODIUM CHLORIDE 0.9% 1,000 ML IV SCH ×2 (17:59)
[2019-02-28] MEDS ORDERED: WARFARIN 5 MG TAB PO SCH (18:00)
--- NOTE | 2019-02-28 18:17 | ECHOF ---
Referral Reason:lv function MEASUREMENTS -------- HEIGHT: 182.9 cm WEIGHT: 154.2 kg BP: 112/66 IVSd: 1.5 cm (0.6 - 1.1) LVIDd: 4.9 cm (3.9 - 5.3) LVPWd: 1.4 cm (0.6 - 1.1) IVSs: 2.2 cm LVIDs: 3.1 cm LVPWs: 1.9 cm RVIDd: 3.9 cm (< 3.3) LAESV Index (A-L): 41.04 ml/m Ao Diam: 3.8 cm (2.0 - 3.7) AV Cusp: 2.4 cm (1.5 - 2.6) EPSS: 0.7 cm RAP: 5.00 mmHg RVSP: 41.44 mmHg MV EF SLOPE: 91.59 mm/s (70 - 150) MV EXCURSION: 17.70 mm (> 18.000) FINDINGS -------- Atrial fibrillation. This was a technically difficult study with suboptimal views. The left ventricular size is normal. There is moderate concentric left ventricular hypertrophy. O verall left ventricular systolic function is mildly impaired with, an EF between 45 - 50 %. The right ventricle is moderately enlarged. LA is severely dilated >40 ml/m2 The right atrium is normal in size. 5.0mg of Lumason was utilized for enhancement of images Interatrial and interventricular septum intact. There is mild aortic valve sclerosis. Moderate mitral regurgitation is present. Mild tricuspid regurgitation present. There is mild pulmonary hypertension. The right ventricular systolic pressure, as measured by Doppler, is 41.44mmHg. Trace/mild (physiologic) pulmonic regurgitation. The aortic root is dilated measuring 3.8cm. Normal inferior vena cava with normal inspiratory collapse consistent with estimated right atrial pre ssure of 5 mmHg. There is no pericardial effusion. CONCLUSIONS -------- 1. Atrial fibrillation. 2. This was a technically difficult study with suboptimal views. 3. The left ventricular size is normal. 4. There is moderate concentric left ventricular hypertrophy. 5. Overall left ventricular systolic function is mildly impaired with, an EF between 45 - 50 %. 6. The right ventricle is moderately enlarged. 7. LA is severely dilated >40 ml/m2 8. The right atrium is normal in size. 9. 5.0mg of Lumason was utilized for enhancement of images 10. Interatrial and interventricular septum intact. 11. There is mild aortic valve sclerosis. 12. Moderate mitral regurgitation is present. 13. Mild tricuspid regurgitation present. 14. There is mild pulmonary hypertension. 15. The right ventricular systolic pressure, as measured by Doppler, is 41.44mmHg. 16. Trace/mild (physiologic) pulmonic regurgitation. 17. The aortic root is dilated measuring 3.8cm. 18. Normal inferior vena cava with normal inspiratory collapse consistent with estimated right atrial pressure of 5 mmHg. 19. There is no pericardial effusion. [employer]: Veronique Rojas RDCS
[2019-02-28] MEDS: METOPROLOL TARTRATE 50 MG TAB PO SCH (20:40)
[2019-02-28] MEDS: ATORVASTATIN 10 MG TAB PO SCH (20:40)
[2019-03-01] MEDS: SODIUM CHLORIDE 0.9% 1,000 ML IV SCH ×2 (04:57→15:27)
[2019-03-01 06:45] LABS: HCT 49.2 % (39.0-53.0); HGB 15.9 gm/dL (13.0-17.5); MCH 31.3 pg (25.0-35.0); MCHC 32.3 g/dL (31.0-37.0); MCV 96.9 fL (80.0-100.0); Mean Platelet Volume 8.3; Platelet Count 175 k/uL (150-450); RBC 5.07 m/uL (4.30-5.90); RDW 15.4 % (11.5-15.5); WBC 13.4 k/uL (3.8-10.6)
[2019-03-01 06:51] LABS: INR 2.4 (<1.2)
[2019-03-01 06:57] LABS: Calcium 8.6 mg/dL (8.4-10.2); Potassium 4.3 mmol/L (3.5-5.1)
[2019-03-01] MEDS: PANTOPRAZOLE 40 MG/10 ML VIAL IVP SCH (09:06)
[2019-03-01] MEDS: METOPROLOL TARTRATE 50 MG TAB PO SCH ×2 (09:06→19:36)
[2019-03-01] MEDS ORDERED: AMINOPHYLLINE 500 MG/20 ML VIAL IV PRN (10:45)
[2019-03-01] MEDS ORDERED: CAFFEINE CITRATE 60 MG/3 ML VIAL IV PRN (10:45)
--- NOTE | 2019-03-01 12:04 | XR ---
EXAMINATION TYPE: XR chest 1V DATE OF EXAM: 03/01/2019 COMPARISON: 02/28/2019 HISTORY: Shortness of breath TECHNIQUE: Single frontal view of the chest is obtained. FINDINGS: Cardiomediastinal silhouette is enlarged and there is right hemidiaphragm elevation with p ulmonary hypoinflation. New multifocal atelectasis and other areas of similar bibasilar multifocal at electasis. Osseous structures are grossly intact. No sizable pneumothorax. At least trace right pleur al effusion. IMPRESSION: Hypoventilatory lungs with new scattered atelectasis and similar bibasilar atelectasis. Cardiomediastinal silhouette is markedly enlarged. Echocardiogram could assess function in the presen ce of possible pericardial effusion.
[2019-03-01] MEDS ORDERED: DIPYRIDAMOLE 70 MG in SODIUM CHLORIDE 0.9% 36 ML IV ONE (12:30)
--- NOTE | 2019-03-01 13:20 | EST ---
EXERCISE STRESS DATE OF SERVICE: 03/01/2019 AGE: 73 SEX: Male HT: 72" WT: 340 pounds PROTOCOL: Persantine Cardiolite STAGE: DURATION OF EXERCISE: HEART RATE REST: 84 BLOOD PRESSURE REST: 159/87 MAXIMUM HEART RATE ACHIEVED: 90 MAXIMUM BLOOD PRESSURE: 207/105 85% MPHR: 123 100% MPHR: 145 METS: INDICATIONS: Chest pain. CLINICAL INFORMATION: There is a Persantine Cardiolite stress test for chest pain. Baseline heart rate 84 beats per minute. Baseline blood pressure 159/87 mmHg. Baseline 12-lead ECG shows underlying atrial fibrillation with right bundle branch block with secondary ST changes. The patient received Persantine infusion per protocol. No definite ECG changes of ischemia. No other arrhythmias were . No ventricular arrhythmias were noted. Nuclear portion will be reported separately. MMODL / IJN: [id number] /
--- NOTE | 2019-03-01 14:06 | NM ---
EXAMINATION TYPE: NM stress persantine cardiolit DATE OF EXAM: 03/01/2019 COMPARISON: NONE HISTORY: Chest pain TECHNIQUE: After the intravenous administration of 10.6 mCi Tc 99m Sestamibi - Cardiolite resting SP ECT images acquired 40 minutes post injection. The patient received 70 mg Persantine, 25.4 mCi Tc 99m Sestamibi - Stress images obtained 40 minutes post injection FINDINGS: Review of stress and rest SPECT images demonstrates no distinct reversible perfusion abnormality. Sma ll fixed defect in the inferior wall is artifactual or related to adjacent diaphragmatic and/or liver attenuation as there is no abnormal wall motion. Gated analysis shows normal wall motion with an est imated left ventricular ejection fraction of 58 %. TID is markedly abnormal measured at 1.55. IMPRESSION: 1. Markedly abnormal TID measured at 1.55, which can be seen in balanced 3 vessel ischemia or cardiom yopathy. 2. No scintigraphic focal defect to indicate focal reversible ischemia. A [place] level critical message alert has been initiated for Jaleel Yost MD via the [employer] Critical Results System on 03/01/2019 2:04 PM. This message alert has been sent to Jaleel Yost MD via the preferences provided by the clinician for the receipt of Radiology Critical Findings. Message ID [id number].
--- NOTE | 2019-03-01 14:06 | P.PN ---
Subjective Progress Note Date: 03/01/19 Principal diagnosis: Shortness of breath/chest pain This is a pleasant 73-year-old gentleman who sees Dr. Jones in the office on regular basis with a past medical history significant for morbid obesity, chronic persistent atrial fibrillation on oral anticoagulation with Coumadin, hypertension, dyslipidemia, was brought to the emergency room with his because the patient is not feeling well. The patient somewhat is a poor historian. He states that for the last 2-3 weeks, he has been more short of breath with exertion. He stated it does not take much to heal the shortness of breath. Sometimes even getting up to stand make him short of breath. Some other times, getting the conversation is enough to make him short of breath. Beside that, he denies any orthopnea and denies any paroxysmal nocturnal dyspnea. He stated that he did not have any lower extremities edema before he presented to the hospital. According to him, he did not gain any weight, but according to his , he did gain weight. The amount of weight is unknown at this point. The patient stated that his symptoms really triggered 3 weeks ago after he fell when he was trying to help his at home. No indication that he lost his consciousness. But beside that, the patient describes intermittent episodes of chest discomfort, in the mid of the chest, as a sharp kind of discomfort, without any radiation to the arm or neck or shoulders and without any associated symptoms. The patient states clearly that the chest discomfort is not exertion related. He is somewhat is a poor historian. He denies any fever or chills, cough or sputum, nausea or vomiting, or loss of consciousness or syncope. The EKG revealed atrial fibrillation with RBBB and without any ischemic ST or T-wave abnormalities concerning for ischemia. The first set of troponin was checked and came in to be unremarkable. The chest x-ray showed small bilateral pleural effusion. The rest of blood work came in to be unremarkable. The patient does not take any diuretics at home. He stated that he was compliant with his medication but she stated that he was not compliant with his diet. On follow-up with the patient today, he stated that he still having shortness of breath but it's better. No symptoms of chest pain or chest discomfort. He underwent myocardial perfusion imaging stress test and will follow-up with that. Objective - Vital Signs Vital signs: Vital Signs Temp 97.6 F 03/01/19 05:41 Pulse 105 H 03/01/19 05:41 Resp 20 03/01/19 05:41 BP 117/64 03/01/19 05:41 Pulse Ox 94 L 03/01/19 05:41 Intake & Output 02/28/19 03/01/19 03/01/19 18:59 06:59 18:59 Intake Total 340 240 Output Total 875 Balance 340 -875 240 Weight 154.221 kg Intake: Intake, IV Titration 100 Amount Sodium Chloride 0.9% 1, 100 000 ml @ 20 mls/hr IV . Q24H [facility] [place] Rx#:[id number] Oral 240 240 Output: Urine 875 Other: Voiding Method Urinal - Constitutional General appearance: Present: no acute distress - Respiratory Respiratory: bilateral: CTA - Cardiovascular Rhythm: regular Heart sounds: normal: S1, S2 - Labs CBC & Chem 7: 03/01/19 05:52 03/01/19 05:52 Labs: Abnormal Lab Results - Last 24 Hours (Table) 03/01/19 03/01/19 03/01/19 Range/Units 05:52 05:52 05:52 WBC 13.4 H (3.8-10.6) k/uL PT 23.0 H (9.0-12.0) sec INR 2.4 H (<1.2) BUN 23 H (9-20) mg/dL Creatinine 1.67 H (0.66-1.25) mg/dL Glucose 105 H (74-99) mg/dL Microbiology - Last 24 Hours (Table) 02/28/19 23:00 Urine Culture - Preliminary Urine,Voided Assessment and Plan Assessment: Assessment #1 progressive exertional dyspnea #2 intermittent episodes of chest discomfort #3 chronic atrial fibrillation was controlled heart rate #4 morbid obesity #5 hypertension #6 dyslipidemia Plan #1 continue the current medical regimen #2 follow-up with a stress test Thank you for allowing us participate in his care
[2019-03-01] MEDS ORDERED: IBUPROFEN 400 MG TAB PO PRN (14:15)
--- NOTE | 2019-03-01 15:20 | P.PN ---
Subjective 73-year-old pleasant male came in with complaints of fatigue patient has very nonspecific complaints patient is a poor historian that may be chest pain which she is not clear about. His symptoms were related to carotid artery disease because of which patient will undergo stress test. Patient has ejection fraction of 45-50% although patient does not appear to be in heart failure causing her low ejection. His low ejection fraction IV fluids will be this can you. Normal TSH. Constitutional: Denied any fatigue denied any fever. Fatigue improved Cardio vascular: denied any chest pain, palpitations Gastrointestinal denied any nausea vomiting Pulmonary: Denied any shortness of breath cough Neurologic denied any new focal deficits All inpatient medications were reviewed and appropriate changes in these medications as dictated in the interval history and assessment and plan. Objective - Vital Signs Vital signs: Vital Signs Temp 97.6 F 03/01/19 05:41 Pulse 89 03/01/19 14:06 Resp 16 03/01/19 14:06 BP 100/58 03/01/19 14:06 Pulse Ox 95 03/01/19 14:06 Intake & Output 02/28/19 03/01/19 03/01/19 18:59 06:59 18:59 Intake Total 340 240 Output Total 875 Balance 340 -875 240 Weight 154.221 kg Intake: Intake, IV Titration 100 Amount Sodium Chloride 0.9% 1, 100 000 ml @ 20 mls/hr IV . Q24H [facility] Rx#:[id number] Oral 240 240 Output: Urine 875 Other: Voiding Method Urinal Urinal - Exam PHYSICAL EXAMINATION: GENERAL: The patient is alert and oriented x3, not in any acute distress. Obese HEENT: Pupils are round and equally reacting to light. EOMI. No scleral icterus. No conjunctival pallor. Normocephalic, atraumatic. No pharyngeal erythema. No thyromegaly. CARDIOVASCULAR: S1 and S2 present. No murmurs, rubs, or gallops. No JVD irregularly irregular rhythm PULMONARY: Chest is clear to auscultation, no wheezing or crackles. ABDOMEN: Soft, nontender, nondistended, normoactive bowel sounds. No palpable organomegaly. MUSCULOSKELETAL: No joint swelling or deformity. EXTREMITIES: No cyanosis, clubbing, or pedal edema. NEUROLOGICAL: Gross neurological examination did not reveal any focal deficits. SKIN: No rashes. - Labs CBC & Chem 7: 03/01/19 05:52 03/01/19 05:52 Labs: Abnormal Lab Results - Last 24 Hours (Table) 03/01/19 03/01/19 03/01/19 Range/Units 05:52 05:52 05:52 WBC 13.4 H (3.8-10.6) k/uL PT 23.0 H (9.0-12.0) sec INR 2.4 H (<1.2) BUN 23 H (9-20) mg/dL Creatinine 1.67 H (0.66-1.25) mg/dL Glucose 105 H (74-99) mg/dL Microbiology - Last 24 Hours (Table) 02/28/19 23:00 Urine Culture - Preliminary Urine,Voided Assessment and Plan Plan: - generalized weakness, fatigue: Patient the will undergo stress stress as there is a questionable chest pain history and his symptoms may be related to coronary artery disease and patient shortness of breath may be related to coronary artery disease TSH is within normal limits patient is not in heart failure exacerbation although IV fluids will be discontinued because of his low EF of 45-50% mildly decreased ejection fraction. -Chronic systolic dysfunction without any acute exacerbation -Chronic A. fib presently rate controlled continue with his home medications Coumadin dose will be decreased to 4 mg target INR is 2-3 -Nausea vomiting may be peptic ulcer disease or gastritis patient will be started on Protonix -Morbid obesity -Hypertension -Hyperlipidemia
[2019-03-01] MEDS ORDERED: WARFARIN 2 MG TAB PO SCH (18:00)
[2019-03-01] MEDS: ATORVASTATIN 10 MG TAB PO SCH (19:36)
[2019-03-02 06:43] LABS: INR 1.8 (<1.2); Prothrombin Time 17.7 sec (9.0-12.0)
[2019-03-02] MEDS: PANTOPRAZOLE 40 MG TABLET PO SCH (06:43)
[2019-03-02] MEDS: METOPROLOL TARTRATE 50 MG TAB PO SCH ×2 (08:56→20:02)
--- NOTE | 2019-03-02 10:59 | P.PN ---
Subjective 73-year-old pleasant male came in with complaints of fatigue patient has very nonspecific complaints patient is a poor historian that may be chest pain which she is not clear about. His symptoms were related to carotid artery disease because of which patient will undergo stress test. Patient has ejection fraction of 45-50% although patient does not appear to be in heart failure causing her low ejection. His low ejection fraction IV fluids will be this can you. Normal TSH. 03/02/2019 Patient had a positive stress test will undergo cardiac catheterization on Monday patient is presently on IV fluids for that. Constitutional: Denied any fatigue denied any fever. Fatigue improved Cardio vascular: denied any chest pain, palpitations Gastrointestinal denied any nausea vomiting Pulmonary: Denied any shortness of breath cough Neurologic denied any new focal deficits All inpatient medications were reviewed and appropriate changes in these medications as dictated in the interval history and assessment and plan. Objective - Vital Signs Vital signs: Vital Signs Temp 98.1 F 03/02/19 08:10 Pulse 87 03/02/19 08:10 Resp 18 03/02/19 08:10 BP 105/61 03/02/19 08:10 Pulse Ox 93 L 03/02/19 08:10 Intake & Output 03/01/19 03/02/19 03/02/19 18:59 06:59 18:59 Intake Total 478 240 Output Total 100 Balance 478 -100 240 Weight 151.3 kg Intake: Oral 478 240 Output: Urine 100 Other: Voiding Method Urinal Urinal # Voids 5 1 - Exam PHYSICAL EXAMINATION: GENERAL: The patient is alert and oriented x3, not in any acute distress. Obese HEENT: Pupils are round and equally reacting to light. EOMI. No scleral icterus. No conjunctival pallor. Normocephalic, atraumatic. No pharyngeal erythema. No thyromegaly. CARDIOVASCULAR: S1 and S2 present. No murmurs, rubs, or gallops. No JVD irregularly irregular rhythm PULMONARY: Chest is clear to auscultation, no wheezing or crackles. ABDOMEN: Soft, nontender, nondistended, normoactive bowel sounds. No palpable organomegaly. MUSCULOSKELETAL: No joint swelling or deformity. EXTREMITIES: No cyanosis, clubbing, or pedal edema. NEUROLOGICAL: Gross neurological examination did not reveal any focal deficits. SKIN: No rashes. - Labs CBC & Chem 7: 03/01/19 05:52 03/01/19 05:52 Labs: Abnormal Lab Results - Last 24 Hours (Table) 03/02/19 Range/Units 05:58 PT 17.7 H (9.0-12.0) sec INR 1.8 H (<1.2) Microbiology - Last 24 Hours (Table) 02/28/19 23:00 Urine Culture - Final Urine,Voided Assessment and Plan Plan: - generalized weakness, fatigue: patient's stress test was positive will undergo cardiac catheterization EF of 45-50% mildly decreased ejection fraction. -Chronic systolic dysfunction without any acute exacerbation -Chronic A. fib presently rate controlled, sinus rhythm Coumadin is being held for cardiac catheterization on Monday -Nausea vomiting may be peptic ulcer disease or gastritis patient will be started on Protonix -Morbid obesity -Hypertension -Hyperlipidemia
[2019-03-02] MEDS: SODIUM CHLORIDE 0.9% 1,000 ML IV SCH (12:59)
--- NOTE | 2019-03-02 14:32 | P.PN ---
Subjective Progress Note Date: 03/02/19 The patient is a 73-year-old male who follows with Dr. Jones in the office, who has past medical history of obesity, persistent atrial fibrillation, hypertension, and dyslipidemia, who presents to the hospital with shortness of breath on exertion and increased fatigue. EKG showed persistent atrial fibrill ation with right bundle branch block without any ST or T-wave changes. Cardiac enzymes were negative. Chest x-ray showed small bilateral pleural effusions. BNP was 1930. Over the past several days his creatinine continues to elevate and his GFR is now 40. Lexiscan stress testing was positive for possible triple-vessel disease. Today he is resting comfortably in bed. He states he continues to have some shortness of breath when he gets up and walks, but is much improved. He denies any chest pain, chest pressure, palpitations, dizziness, or vertigo. GENERAL: Well-appearing, obese,and in no acute distress. NECK: Supple without JVD or thyromegaly. LUNGS: Breath sounds diminished. Respiration equal and unlabored. No wheezes, rales or rhonchi. HEART: Regular rate and rhythm without murmurs, rubs or gallops. S1 and S2 heard. EXTREMITIES: Normal range of motion, no edema. No clubbing or cyanosis. Peripheral pulses intact and strong. Telemetry shows persistent rate controlled atrial fibrillation Labs: WBC 13.4, hemoglobin 15.9, hematocrit 49.2, sodium 137, potassium 4.3, BUN 23, creatinine 1.67, BNP 1930, TSH 1.870 Assessment: #1 persistent atrial fibrillation, rate controlled, on anticoagulation #2 shortness of breath #3 morbid obesity #4 hypertension #6 dyslipidemia Plan: Patient is scheduled for left heart cath on Monday with Dr. Jones. Encourage or al hydration for elevated creatinine. Discontinue NSAIDs. Objective - Vital Signs Vital signs: Vital Signs Temp 98.1 F 03/02/19 08:10 Pulse 60 03/02/19 12:00 Resp 18 03/02/19 12:00 BP 104/74 03/02/19 12:00 Pulse Ox 95 03/02/19 12:00 Intake & Output 03/01/19 03/02/19 03/02/19 18:59 06:59 18:59 Intake Total 478 360 Output Total 100 Balance 478 -100 360 Weight 151.3 kg Intake: Oral 478 360 Output: Urine 100 Other: Voiding Method Urinal Urinal # Voids 5 1 0 - Labs CBC & Chem 7: 03/01/19 05:52 03/01/19 05:52 Labs: Abnormal Lab Results - Last 24 Hours (Table) 03/02/19 Range/Units 05:58 PT 17.7 H (9.0-12.0) sec INR 1.8 H (<1.2) Microbiology - Last 24 Hours (Table) 02/28/19 23:00 Urine Culture - Final Urine,Voided
[2019-03-02] MEDS ORDERED: ACETAMINOPHEN TAB 325 MG TAB PO PRN (19:57)
[2019-03-02] MEDS: ATORVASTATIN 40 MG TAB PO SCH (20:02)
[2019-03-03 06:07] LABS: HCT 51.3 % (39.0-53.0); HGB 16.4 gm/dL (13.0-17.5); MCV 97.1 fL (80.0-100.0); Mean Platelet Volume 8.1; Platelet Count 169 k/uL (150-450); RBC 5.28 m/uL (4.30-5.90); RDW 14.9 % (11.5-15.5); WBC 8.1 k/uL (3.8-10.6)
[2019-03-03 06:14] LABS: INR 1.4 (<1.2); Prothrombin Time 13.8 sec (9.0-12.0)
[2019-03-03 06:16] LABS: Calcium 8.8 mg/dL (8.4-10.2)
[2019-03-03] MEDS: PANTOPRAZOLE 40 MG TABLET PO SCH (06:16)
[2019-03-03 06:20] LABS: Potassium 4.5 mmol/L (3.5-5.1)
[2019-03-03] MEDS: METOPROLOL TARTRATE 50 MG TAB PO SCH ×2 (08:05→20:52)
[2019-03-03] MEDS: SODIUM CHLORIDE 0.9% 1,000 ML IV SCH (08:05)
--- NOTE | 2019-03-03 10:53 | P.PN ---
Subjective Progress Note Date: 03/03/19 Principal diagnosis: Abnormal stress test The patient is a 73-year-old male who follows with Dr. Jones in the office, who has past medical history of obesity, persistent atrial fibrillation, hypertension, and dyslipidemia, who presents to the hospital with shortness of breath on exertion and increased fatigue. EKG showed persistent atrial fibrillation with right bundle branch block without any ST or T-wave changes. Cardiac enzymes were negative. Chest x-ray showed small bilateral pleural effusions. BNP was 1930. Over the past several days his creatinine continues to elevate and his GFR is now 40. Lexiscan stress testing was positive for possible triple-vessel disease. 03/02/19: He is resting comfortably in bed. He states he continues to have some shortness of breath when he gets up and walks, but is much improved. He denies any chest pain, chest pressure, palpitations, dizziness, or vertigo. 03/03/19: Currently he is resting comfortably in bed with his at his bedside. He states he did get up and walk to the bathroom several times yesterday, however has not walk the unit. He does have shortness of breath with exertion, however denies any chest pain or chest pressure. GENERAL: Well-appearing, obese,and in no acute distress. NECK: Supple without JVD or thyromegaly. LUNGS: Breath sounds diminished. Respiration equal and unlabored. No wheezes, rales or rhonchi. HEART: Irregular rate and rhythm without murmurs, rubs or gallops. S1 and S2 heard. EXTREMITIES: Normal range of motion, no edema. No clubbing or cyanosis. Periph eral pulses intact and strong. Telemetry shows persistent rate controlled atrial fibrillation Labs: Creatinine improved to 1.28. Assessment: #1 persistent atrial fibrillation, rate controlled, on anticoagulation #2 shortness of breath, abnormal stress testing #3 morbid obesity #4 hypertension #6 dyslipidemia Plan: Patient is scheduled for left heart cath on Monday with Dr. Jones. Repeat lipid profile. Continue hydration for elevated kidney function. Encourage ambulation. Objective - Vital Signs Vital signs: Vital Signs Temp 98 F 03/03/19 08:00 Pulse 109 H 03/03/19 08:00 Resp 19 03/03/19 08:00 BP 153/89 03/03/19 08:00 Pulse Ox 97 03/03/19 08:00 Intake & Output 03/02/19 03/03/19 03/03/19 18:59 06:59 18:59 Intake Total 480 250 240 Balance 480 250 240 Weight 151.1 kg Intake: Intake, IV Titration 250 Amount Sodium Chloride 0.9% 1, 250 000 ml @ 50 mls/hr IV . Q20H [facility] Rx#:[id number] Oral 480 240 Other: Voiding Method Urinal # Voids 2 1 1 # Bowel Movements 0 - Labs CBC & Chem 7: 03/03/19 05:51 03/03/19 05:51 Labs: Abnormal Lab Results - Last 24 Hours (Table) 03/03/19 03/03/19 Range/Units 05:51 05:51 PT 13.8 H (9.0-12.0) sec INR 1.4 H (<1.2) BUN 22 H (9-20) mg/dL Creatinine 1.28 H (0.66-1.25) mg/dL Glucose 109 H (74-99) mg/dL
--- NOTE | 2019-03-03 13:15 | P.PN ---
Subjective 73-year-old pleasant male came in with complaints of fatigue patient has very nonspecific complaints patient is a poor historian that may be chest pain which she is not clear about. His symptoms were related to carotid artery disease because of which patient will undergo stress test. Patient has ejection fraction of 45-50% although patient does not appear to be in heart failure causing her low ejection. His low ejection fraction IV fluids will be this can you. Normal TSH. 03/02/2019 Patient had a positive stress test will undergo cardiac catheterization on Monday patient is presently on IV fluids for that. 03/03/2019 Patient is doing well no chest pain tightness improved. Constitutional: Denied any fatigue denied any fever. Fatigue improved Cardio vascular: denied any chest pain, palpitations Gastrointestinal denied any nausea vomiting Pulmonary: Denied any shortness of breath cough Neurologic denied any new focal deficits All inpatient medications were reviewed and appropriate changes in these medications as dictated in the interval history and assessment and plan. Objective - Vital Signs Vital signs: Vital Signs Temp 98 F 03/03/19 08:00 Pulse 73 03/03/19 12:15 Resp 18 03/03/19 12:15 BP 123/81 03/03/19 12:15 Pulse Ox 94 L 03/03/19 12:15 Intake & Output 03/02/19 03/03/19 03/03/19 18:59 06:59 18:59 Intake Total 480 250 240 Balance 480 250 240 Weight 151.1 kg Intake: Intake, IV Titration 250 Amount Sodium Chloride 0.9% 1, 250 000 ml @ 50 mls/hr IV . Q20H [facility] Rx#:[id number] Oral 480 240 Other: Voiding Method Urinal # Voids 2 1 1 # Bowel Movements 0 - Exam PHYSICAL EXAMINATION: GENERAL: The patient is alert and oriented x3, not in any acute distress. Obese HEENT: Pupils are round and equally reacting to light. EOMI. No scleral icterus. No conjunctival pallor. Normocephalic, atraumatic. No pharyngeal erythema. No thyromegaly. CARDIOVASCULAR: S1 and S2 present. No murmurs, rubs, or gallops. No JVD irr egularly irregular rhythm PULMONARY: Chest is clear to auscultation, no wheezing or crackles. ABDOMEN: Soft, nontender, nondistended, normoactive bowel sounds. No palpable organomegaly. MUSCULOSKELETAL: No joint swelling or deformity. EXTREMITIES: No cyanosis, clubbing, or pedal edema. NEUROLOGICAL: Gross neurological examination did not reveal any focal deficits. SKIN: No rashes. - Labs CBC & Chem 7: 03/03/19 05:51 03/03/19 05:51 Labs: Abnormal Lab Results - Last 24 Hours (Table) 03/03/19 03/03/19 Range/Units 05:51 05:51 PT 13.8 H (9.0-12.0) sec INR 1.4 H (<1.2) BUN 22 H (9-20) mg/dL Creatinine 1.28 H (0.66-1.25) mg/dL Glucose 109 H (74-99) mg/dL Assessment and Plan Plan: - generalized weakness, fatigue: patient's stress test was positive will undergo cardiac catheterization EF of 45-50% mildly decreased ejection fraction. -Chronic systolic dysfunction without any acute exacerbation -Chronic A. fib presently rate controlled, sinus rhythm Coumadin is being held for cardiac catheterization on Monday -Nausea vomiting may be peptic ulcer disease or gastritis patient will be started on Protonix -Morbid obesity -Hypertension -Hyperlipidemia
[2019-03-03] MEDS: ATORVASTATIN 40 MG TAB PO SCH (20:52)
[2019-03-04 05:27] VITALS: TEMP 97.9
[2019-03-04] MEDS: SODIUM CHLORIDE 0.9% 1,000 ML IV SCH (08:49)
[2019-03-04 09:10] LABS: Cholesterol 127 mg/dL (<200); HDL Cholesterol 34 mg/dL (40-60); LDL Cholesterol,Calculated 76 mg/dL (0-99); Triglycerides 84 mg/dL (<150)
[2019-03-04] MEDS ORDERED: ALPRAZolam 0.5 MG TAB PO PRN (09:13)
[2019-03-04] MEDS ORDERED: SODIUM CHLORIDE 0.9% 1,000 ML in EMPTY BAG 1 BAG IV ONE (09:13)
[2019-03-04] MEDS ORDERED: NITROGLYCERIN SL TABS 0.4 MG TAB SUBLINGUAL PRN (09:13)
[2019-03-04] MEDS ORDERED: ALPRAZolam 0.25 MG TAB PO PRN (09:13)
[2019-03-04] MEDS ORDERED: ATORVASTATIN 80 MG TAB PO STA (09:16)
[2019-03-04] MEDS ORDERED: ASPIRIN 325 MG TAB PO STA (09:16)
[2019-03-04] MEDS ORDERED: ASPIRIN 325 MG TAB PO ONE (10:40)
[2019-03-04] MEDS: fentaNYL (PF) 50 MCG/ML 2 ML AMP IV ONE ×2 (10:53→11:00)
[2019-03-04] MEDS ORDERED: MIDAZOLAM PF (FBP) 2 MG/2 ML VIAL IVP ONE (10:53)
[2019-03-04] MEDS ORDERED: IV FLUID CONTINUATION 800 ML IV ONE (10:54)
[2019-03-04] MEDS ORDERED: LIDOCAINE 1% INJ 10MG/ML (20 ML MDV) SQ ONE (10:58)
[2019-03-04] MEDS ORDERED: IOPAMIDOL-370 100ML BTL INJ ONE (11:08)
[2019-03-04] MEDS ORDERED: RX INFO: IV CONTRAST WAS GIVEN 1 EACH MISC MISCELLANE PRN (11:14)
[2019-03-04] MEDS ORDERED: SODIUM CHLORIDE 0.9% 1,000 ML IV SCH (11:15)
[2019-03-04] MEDS ORDERED: NITROGLYCERIN OINT 1 INCH/GM PACKET TOPICAL ONE (11:20)
--- NOTE | 2019-03-04 11:45 | CC ---
CARDIAC CATHETERIZATION REPORT INDICATION: Abnormal stress test. PROCEDURE NOTE: After obtaining informed consent, left heart catheterization and coronary angiogram are performed via the right femoral artery using standard Zaid catheters. The patient tolerated the procedure well without any obvious immediate complications. A femoral angiogram was performed and decision was made for manual hemostasis as the entry into the femoral arteries is below the bifurcation. FINDINGS: 1. HEMODYNAMICS: Left ventricular end-diastolic pressure is 14 to 16 mm. There is no significant gradient across the aortic valve. 2. LEFT VENTRICULOGRAM: Left ventriculogram is not performed. 3. ANGIOGRAPHIC DATA: Left Main Coronary Artery: Left main coronary artery is a normal-sized vessel and is free of stenosis. Divides into left anterior descending coronary artery and circumflex coronary artery. LAD and its branches, circumflex coronary artery and its branches are free of significant stenosis. There is mild nonobstructive atherosclerotic plaque noted. Right coronary artery is a large dominant vessel and is free of significant stenosis. CONCLUSIONS: 1. Mild nonobstructive coronary artery disease. 2. Stress test is a false positive stress test. Patient's management is going to be in the form of aggressive risk factor modification and continued medical therapy. Please continue the Coumadin that he is currently on. MMODL / IJN: [id number] /
--- NOTE | 2019-03-04 13:15 | P.DS ---
Providers Date of admission: 03/02/19 12:15 Attending physician: Gary España MD Consults: 02/28/19 12:23 Consult Physician Routine Consulting Provider: Jaleel Yost Consult Reason/Comments: chf Do you want consulting provider notified?: Yes Primary care physician: Audrey [facility] Course: 73-year-old pleasant male came in with complaints of fatigue patient has very nonspecific complaints patient is a poor historian that may be chest pain which she is not clear about. His symptoms were related to carotid artery disease because of which patient will undergo stress test. Patient has ejection fraction of 45-50% although patient does not appear to be in heart failure causing her low ejection. His low ejection fraction IV fluids will be this can you. Normal TSH. 03/02/2019 Patient had a positive stress test will undergo cardiac catheterization on Monday patient is presently on IV fluids for that. 03/03/2019 Patient is doing well no chest pain tightness . 03/04/2019 Patient underwent cardiac catheterization which showed nonobstructive mild coronary disease. If cleared by cardiology patient will be discharged today. PHYSICAL EXAMINATION: GENERAL: The patient is alert and oriented x3, not in any acute distress. Obese HEENT: Pupils are round and equally reacting to light. EOMI. No scleral icterus. No conjunctival pallor. Normocephalic, atraumatic. No pharyngeal erythema. No thyromegaly. CARDIOVASCULAR: S1 and S2 present. No murmurs, rubs, or gallops. PULMONARY: Chest is clear to auscultation, no wheezing or crackles. ABDOMEN: Soft, nontender, nondistended, normoactive bowel sounds. No palpable organomegaly. MUSCULOSKELETAL: No joint swelling or deformity. EXTREMITIES: No cyanosis, clubbing, or pedal edema. NEUROLOGICAL: Gross neurological examination did not reveal any focal deficits. SKIN: No rashes. Assessment and Plan Plan: - generalized weakness, fatigue: patient's stress test was positive did undergo cardiac catheterization which did not show significant obstructive coronary vascular disease. EF of 45-50% mildly decreased ejection fraction. -Chronic systolic dysfunction without any acute exacerbation -Chronic A. fib presently rate controlled, sinus rhythm Coumadin will be resumed today and will be discharged today INR need to be checked in about 3-4 days -Nausea vomiting may be peptic ulcer disease or gastritis patient will be discharged on Prilosec for 14 days -Morbid obesity -Hypertension -Hyperlipidemia Patient Condition at Discharge: Fair Plan - Discharge Summary Discharge Rx Participant: Yes New Discharge Prescriptions: New Nitroglycerin Sl Tabs [Nitrostat] 0.4 mg SUBLINGUAL Q5M PRN #30 tab PRN Reason: Chest Pain Continue Simvastatin 20 mg PO HS Warfarin [Coumadin] 5 mg PO HS Metoprolol Tartrate [Lopressor] 50 mg PO BID Discontinued Ibuprofen [Motrin Ib] 600 mg PO TID PRN PRN Reason: Pain Discharge Medication List Simvastatin 20 mg PO HS 02/21/15 [History] Warfarin [Coumadin] 5 mg PO HS 04/06/17 [History] Metoprolol Tartrate [Lopressor] 50 mg PO BID 05/19/17 [History] Nitroglycerin Sl Tabs [Nitrostat] 0.4 mg SUBLINGUAL Q5M PRN #30 tab 03/04/19 [Rx] Follow up Appointment(s)/Referral(s): Audrey Hall III, MD [Primary Care Provider] - 3 Days Neville Jones MD [STAFF PHYSICIAN] - 2 Weeks
[2019-03-04] MEDS: METOPROLOL TARTRATE 50 MG TAB PO SCH (13:50)
[2019-03-04] MEDS: PANTOPRAZOLE 40 MG TABLET PO SCH (13:50)
[2019-03-04 15:22] VITALS: RESP 14
[2019-03-04 15:37] VITALS: BP 145/93; PULSE 78
[2019-03-05] MEDS ORDERED: ATORVASTATIN 40 MG TAB PO SCH (21:00)
== END 2019-03-04 19:12 | disposition home or self-care (01) | DRG 287 ==
LOC: EC 10:51 → 3SCARD 12:23 → OBSVTOIN 03-02 12:15
PROVIDERS: ADMIT Internal Medicine; ATTEND Internal Medicine
PROC: B2151ZZ Fluoroscopy of Left Heart using Low Osmolar Contrast (ICD-10-PCS; principal; 2019-03-04 10:45)
PROC: 4A023N7 Measurement of Cardiac Sampling and Pressure, Left Heart, Percutaneous Approach (ICD-10-PCS; principal; 2019-03-04 10:45)
PROC: B2111ZZ Fluoroscopy of Multiple Coronary Arteries using Low Osmolar Contrast (ICD-10-PCS; principal; 2019-03-04 10:45)
DX: R94.39 Abnormal result of other cardiovascular function study (principal); I48.1 Persistent atrial fibrillation; I50.22 Chronic systolic (congestive) heart failure; Z68.41 Body mass index [BMI] 40.0-44.9, adult; E87.2 Acidosis; R53.83 Other fatigue; R53.1 Weakness; E66.01 Morbid (severe) obesity due to excess calories; I11.0 Hypertensive heart disease with heart failure; E78.5 Hyperlipidemia, unspecified; Z96.641 Presence of right artificial hip joint; Z96.653 Presence of artificial knee joint, bilateral; M19.90 Unspecified osteoarthritis, unspecified site; E86.9 Volume depletion, unspecified; I45.10 Unspecified right bundle-branch block; Z79.01 Long term (current) use of anticoagulants; Z79.899 Other long term (current) drug therapy; Z80.42 Family history of malignant neoplasm of prostate; Z80.8 Family history of malignant neoplasm of other organs or systems; Z82.49 Family history of ischemic heart disease and other diseases of the circulatory system; Z87.442 Personal history of urinary calculi; Z88.1 Allergy status to other antibiotic agents; Z88.0 Allergy status to penicillin; Z88.2 Allergy status to sulfonamides; Z83.49 Family history of other endocrine, nutritional and metabolic diseases
CPT/HCPCS: 36415; 71045; 71046; 78452; 80048; 80053; 80061; 83735; 83880; 84443; 84484; 85025; 85027; 85610; 85730; 87086; 93005; 93017; 93306; 93458; 99285

== ENCOUNTER → 2019-04-08 | Outpatient (CLI) | payer MEDICARE ==
--- NOTE | 2019-04-08 17:19 | XR ---
EXAMINATION TYPE: XR KUB DATE OF EXAM: 04/08/2019 CLINICAL DATA: 73-year-old male with stones, difficulty urinating, PHH COMPARISON: 06/21/2017 FINDINGS: Supine and imaging limited for assessment of free air. Nonobstructive bowel gas pattern. Scattered ai r within the colon without significant stool burden. Left mid abdominal calcification measures 1.6 x 0.8 cm. Multiple phleboliths in the pelvis. Additiona l calculi seen in the upper and midpole of the left kidney no longer identified. Suspect some central prostatic calcifications as well. Mild degenerative change left hip. Right intra-articular plasty with some prominent heterotopic ossif ication superiorly. IMPRESSION: 1. Left renal calculus measures 1.6 x 0.8 cm. 2. Additional left-sided renal calculi seen on 06/21/2017 no longer identified. 3. Multiple pelvic phleboliths.
== END | disposition home or self-care (01) ==
LOC: RADXRMAIN 14:30
PROVIDERS: ATTEND Urology
DX: N20.0 Calculus of kidney (principal); I87.8 Other specified disorders of veins
CPT/HCPCS: 74018

== ENCOUNTER 2019-04-14 22:30 | Emergency (ER) | payer MEDICARE ==
--- NOTE | 2019-04-15 00:16 | ED ---
Male Urogenital HPI - General Chief complaint: Urogenital Stated complaint: Hematuria Time Seen by Provider: 04/15/19 00:00 Source: patient, family Mode of arrival: wheelchair Limitations: no limitations - History of Present Illness Initial comments: This patient is a 73-year-old man who presents here to be evaluated for hematuria that is been going on since earlier today. The patient states that he had gone to see the urologist last week as he was feeling some difficulty urinating. Patient states that the urologist told him he was not having a ki dney stone but probably was having problems with his prostate. He was started on doxazosin which she has not been taking for a few days and he states that he now is passing blood with his urine. It was heavier earlier today but he states there was no blood with the last urination. The patient denies fever or chills, no chest or abdominal pain. No leg swelling. MD Complaint: other (Hematuria) Onset/Timin -: days(s) Consistency: now resolved Improves with: none Worsens with: none new medication Reports: blood in urine - Related Data Home Medications Medication Instructions Recorded Confirmed Simvastatin 20 mg PO HS 02/21/15 02/28/19 Warfarin [Coumadin] 5 mg PO HS 04/06/17 02/28/19 Metoprolol Tartrate [Lopressor] 50 mg PO BID 05/19/17 02/28/19 Previous Rx's Medication Instructions Recorded Nitroglycerin Sl Tabs [Nitrostat] 0.4 mg SUBLINGUAL Q5M PRN #30 tab 03/04/19 Omeprazole [PriLOSEC] 40 mg PO OMAR-CALEBFSAshu #14 capsule. 03/04/19 Doxycycline [Vibramycin] 100 mg PO BID #28 cap 04/15/19 Allergies Allergy/AdvReac Type Severity Reaction Status Date / Time oxytetracycline Allergy Rash/Hives Verified 04/14/19 22:37 [From Terramycin] oxytetracycline HCl Allergy Rash/Hives Verified 04/14/19 22:37 [From Terramycin] Penicillins Allergy Rash/Hives Verified 04/14/19 22:37 Sulfa (Sulfonamide Allergy Rash/Hives Verified 04/14/19 22:37 Antibiotics) ciprofloxacin [From Cipro] AdvReac Abdominal Verified 04/14/19 22:37 Pain, NAUSEA Review of Systems ROS Statement: Those systems with pertinent positive or pertinent negative responses have been documented in the HPI. ROS Other: All systems not noted in ROS Statement are negative. Constitutional: Denies: fever, chills Respiratory: Denies: cough, dyspnea Cardiovascular: Denies: chest pain, palpitations Gastrointestinal: Denies: abdominal pain, vomiting, diarrhea Genitourinary: Reports: hematuria. Denies: dysuria, testicular pain Musculoskeletal: Denies: back pain Skin: Denies: rash Hematological/Lymphatic: Denies: easy bleeding Past Medical History Past Medical History: Atrial Fibrillation, Chest Pain / Angina, Hyperlipidemia, Hypertension, Osteoarthritis (OA) Additional Past Medical History / Comment(s): afib History of Any Multi-Drug Resistant Organisms: None Reported Past Surgical History: Hernia Repair, Orthopedic Surgery Additional Past Surgical History / Comment(s): lump removed from throat, bilateral knee replacement, right hip replacement Past Anesthesia/Blood Transfusion Reactions: No Reported Reaction Past Psychological History: No Psychological Hx Reported Smoking Status: Never smoker Past Alcohol Use History: None Reported Past Drug Use History: None Reported - Past Family History Father History Unknown: Yes Family Medical History: Myocardial Infarction ([place]) Additional Family Medical History / Comment(s): prostate cancer Mother History Unknown: Yes Family Medical History: Cancer Brother(s) History Unknown: Yes Family Medical History: Cancer Additional Family Medical History / Comment(s): prostate Sister(s) History Unknown: Yes Family Medical History: Cancer Additional Family Medical History / Comment(s): ovarian, throat/neck cancer Daughter(s) History Unknown: Yes Family Medical History: Thyroid Disorder Additional Family Medical History / Comment(s): hypothyroid General Exam Limitations: no limitations General appearance: alert, in no apparent distress Head exam: Present: atraumatic, normocephalic Respiratory exam: Present: normal lung sounds bilaterally. Absent: respiratory distress, wheezes, rales, rhonchi, stridor Cardiovascular Exam: Present: regular rate, normal rhythm, normal heart sounds. Absent: systolic murmur, diastolic murmur, rubs, gallop GI/Abdominal exam: Present: soft. Absent: distended, tenderness, guarding, rebound, rigid, mass Extremities exam: Present: normal inspection, normal capillary refill. Absent: pedal edema Neurological exam: Present: alert Skin exam: Present: warm, dry, intact, normal color. Absent: rash Course Vital Signs 04/14/19 04/15/19 22:35 01:36 Temperature 97.4 F L Pulse Rate 84 Respiratory 20 Rate Blood Pressure 98/69 118/81 O2 Sat by Pulse 96 98 Oximetry Medical Decision Making - Lab Data Result diagrams: 04/15/19 01:25 04/15/19 02:03 Lab Results 04/15/19 04/15/19 04/15/19 Range/Units 01:25 01:25 01:25 WBC 8.9 (3.8-10.6) k/uL RBC 5.13 (4.30-5.90) m/uL Hgb 15.2 (13.0-17.5) gm/dL Hct 47.7 (39.0-53.0) % MCV 93.0 (80.0-100.0) fL MCH 29.7 (25.0-35.0) pg MCHC 31.9 (31.0-37.0) g/dL RDW 13.3 (11.5-15.5) % Plt Count 288 (150-450) k/uL Neutrophils % 79 % Lymphocytes % 10 % Monocytes % 7 % Eosinophils % 2 % Basophils % 2 % Neutrophils # 7.0 (1.3-7.7) k/uL Lymphocytes # 0.9 L (1.0-4.8) k/uL Monocytes # 0.7 (0-1.0) k/uL Eosinophils # 0.1 (0-0.7) k/uL Basophils # 0.1 (0-0.2) k/uL PT 41.1 H (9.0-12.0) sec INR 4.3 H (<1.2) APTT 42.3 H (22.0-30.0) sec Sodium (137-145) mmol/L Potassium (3.5-5.1) mmol/L Chloride (98-107) mmol/L Carbon Dioxide (22-30) mmol/L Anion Gap mmol/L BUN (9-20) mg/dL Creatinine (0.66-1.25) mg/dL Est GFR (CKD-EPI)AfAm (>60 ml/min/1.73 sqM) Est GFR (CKD-EPI)NonAf (>60 ml/min/1.73 sqM) Glucose (74-99) mg/dL Calcium (8.4-10.2) mg/dL Urine Color Dark Red Urine Appearance Bloody (Clear) Urine RBC >182 H (0-5) /hpf Urine WBC >182 H (0-5) /hpf 04/15/19 Range/Units 02:03 WBC (3.8-10.6) k/uL RBC (4.30-5.90) m/uL Hgb (13.0-17.5) gm/dL Hct (39.0-53.0) % MCV (80.0-100.0) fL MCH (25.0-35.0) pg MCHC (31.0-37.0) g/dL RDW (11.5-15.5) % Plt Count (150-450) k/uL Neutrophils % % Lymphocytes % % Monocytes % % Eosinophils % % Basophils % % Neutrophils # (1.3-7.7) k/uL Lymphocytes # (1.0-4.8) k/uL Monocytes # (0-1.0) k/uL Eosinophils # (0-0.7) k/uL Basophils # (0-0.2) k/uL PT (9.0-12.0) sec INR (<1.2) APTT (22.0-30.0) sec Sodium 141 (137-145) mmol/L Potassium 4.2 (3.5-5.1) mmol/L Chloride 109 H (98-107) mmol/L Carbon Dioxide 23 (22-30) mmol/L Anion Gap 9 mmol/L BUN 25 H (9-20) mg/dL Creatinine 1.34 H (0.66-1.25) mg/dL Est GFR (CKD-EPI)AfAm 60 (>60 ml/min/1.73 sqM) Est GFR (CKD-EPI)NonAf 52 (>60 ml/min/1.73 sqM) Glucose 117 H (74-99) mg/dL Calcium 8.7 (8.4-10.2) mg/dL Urine Color Urine Appearance (Clear) Urine RBC (0-5) /hpf Urine WBC (0-5) /hpf Disposition Clinical Impression: Prostatitis Disposition: HOME SELF-CARE Condition: Fair Instructions (If sedation given, give patient instructions): Prostatitis (ED) Prescriptions: Doxycycline [Vibramycin] 100 mg PO BID #28 cap Is patient prescribed a controlled substance at d/c from ED?: No Referrals: Audrey Hall III, MD [Primary Care Provider] - 1-2 days
[2019-04-15 01:42] LABS: RBC,Urine >182 /hpf (0-5); WBC,Urine >182 /hpf (0-5)
[2019-04-15 01:47] LABS: Appearance,Urine Bloody (Clear); Color,Urine Dark Red
[2019-04-15 01:53] LABS: Basophils # (A) 0.1 k/uL (0-0.2); Basophils % (A) 2 %; Eosinophils # (A) 0.1 k/uL (0-0.7); Eosinophils % (A) 2 %; HCT 47.7 % (39.0-53.0); HGB 15.2 gm/dL (13.0-17.5); Lymphocytes # (A) 0.9 k/uL (1.0-4.8); Lymphocytes % (A) 10 %; MCH 29.7 pg (25.0-35.0); MCHC 31.9 g/dL (31.0-37.0); Mean Platelet Volume 8.1; Monocytes # (A) 0.7 k/uL (0-1.0); Monocytes % (A) 7 %; Neutrophils % (A) 79 %; Platelet Count 288 k/uL (150-450); RBC 5.13 m/uL (4.30-5.90); RDW 13.3 % (11.5-15.5); WBC 8.9 k/uL (3.8-10.6)
[2019-04-15 02:02] LABS: INR 4.3 (<1.2); Partial Thromboplastin Time 42.3 sec (22.0-30.0); Prothrombin Time 41.1 sec (9.0-12.0)
[2019-04-15 02:29] LABS: Calcium 8.7 mg/dL (8.4-10.2); Potassium 4.2 mmol/L (3.5-5.1)
[2019-04-15] MEDS ORDERED: DOXYCYCLINE 100 MG CAP PO STA (02:43)
[2019-04-15 03:47] VITALS: BP 136/72; PULSE 88; RESP 18; TEMP 98.4
== END 2019-04-15 03:36 | disposition home or self-care (01) ==
LOC: EC 22:30
DX: N41.9 Inflammatory disease of prostate, unspecified (principal); I48.91 Unspecified atrial fibrillation; I10 Essential (primary) hypertension; E78.5 Hyperlipidemia, unspecified; M19.90 Unspecified osteoarthritis, unspecified site; Z79.01 Long term (current) use of anticoagulants; Z79.899 Other long term (current) drug therapy; Z88.0 Allergy status to penicillin; Z88.1 Allergy status to other antibiotic agents; Z88.2 Allergy status to sulfonamides; Z96.653 Presence of artificial knee joint, bilateral; Z96.641 Presence of right artificial hip joint
CPT/HCPCS: 36415; 51798; 80048; 81001; 85025; 85610; 85730; 87086; 99284

== ENCOUNTER → 2019-04-18 | Outpatient (CLI) | payer MEDICARE ==
[2019-04-18 12:47] LABS: Basophils % (A) 1 %; Eosinophils # (A) 0.1 k/uL (0-0.7); Eosinophils % (A) 2 %; HCT 47.4 % (39.0-53.0); HGB 14.3 gm/dL (13.0-17.5); Lymphocytes # (A) 0.8 k/uL (1.0-4.8); Lymphocytes % (A) 10 %; MCH 29.5 pg (25.0-35.0); MCHC 30.2 g/dL (31.0-37.0); MCV 97.6 fL (80.0-100.0); Mean Platelet Volume 7.1; Monocytes # (A) 0.3 k/uL (0-1.0); Monocytes % (A) 4 %; Neutrophils # (A) 5.9 k/uL (1.3-7.7); Neutrophils % (A) 82 %; Platelet Count 275 k/uL (150-450); RBC 4.86 m/uL (4.30-5.90); RDW 13.4 % (11.5-15.5); WBC 7.2 k/uL (3.8-10.6)
[2019-04-18 12:57] LABS: INR 1.8 (<1.2); Prothrombin Time 17.5 sec (9.0-12.0)
[2019-04-18 13:11] LABS: Albumin 3.4 g/dL (3.5-5.0); Calcium 9.3 mg/dL (8.4-10.2); Potassium 4.5 mmol/L (3.5-5.1); Total Bilirubin 1.4 mg/dL (0.2-1.3); Total Protein 6.3 g/dL (6.3-8.2)
--- NOTE | 2019-04-18 14:06 | US ---
EXAMINATION TYPE: US kidneys/renal and bladder DATE OF EXAM: 04/18/2019 COMPARISON: KUB CLINICAL HISTORY: R31.0 Hematuria, N39.0 UTI, N18.09 CKD. EXAM MEASUREMENTS: Right Kidney: 9.1 x 7.4 x 4.6 cm Left Kidney: 14.3 x 6.3x 6.8 cm Post Void Residual Volume: 1492 mL Right Kidney: Severe hydronephrosis with cortical renal thinning. There are two lateral cortical cyst s seen with larger measuring 4.0 x 3.5 x 2.9cm. Left Kidney: solid renal stone seen in lower pole with posterior shadowing = 1.7 x 1.5 x 1.1cm; micro calcification seen in cortex; mild hydronephrosis; lower pole cortical cyst = 1.4 x 1.4 x 1.4cm. Pio ical renal thinning. Bladder: abnormally distended bladder with possible abnormally thickened wall at 2.1cm A/P; abnormal post void Bilateral Jets seen: no Normal Post Void Residual: no, abnormal volume IMPRESSION: 1. Severe right hydronephrosis and mild left hydronephrosis. Bilateral cortical renal thinning is see n that may be on the basis of chronic hydronephrosis or chronic medical renal disease. 2. Nonobstructing 1.7 cm right renal calculus. 3. Benign-appearing right renal cysts measuring up to 4.0 cm. 3. Urinary bladder wall is questionably circumferentially thickened. Correlate with urinalysis to exc lude cystitis.
--- NOTE | 2019-04-18 14:13 | XR ---
EXAMINATION TYPE: XR abdomen 1V DATE OF EXAM: 04/18/2019 2:00 PM CLINICAL HISTORY: Hematuria and constipation TECHNIQUE: Single supine KUB image of the abdomen is obtained. COMPARISON: 04/08/2019. FINDINGS: Scattered gas is seen in nondilated small bowel loops. Gas and fecal material is seen in no ndilated colon. No suspicious calcification is seen in the abdomen. Right femoral arthroplasty is see n. Diffuse osseous demineralization is present. Mild atherosclerosis of the abdominal aorta and its b ranches. Lung bases are not imaged. Small phleboliths are seen within the pelvis. IMPRESSION: 1. Nonobstructive bowel gas pattern. 2. No suspicious calcifications in the region of the renal shadows nor ureters.
== END | disposition home or self-care (01) ==
LOC: RADUSWWP 11:55
PROVIDERS: ATTEND Family Medicine
DX: N13.30 Unspecified hydronephrosis (principal); N20.0 Calculus of kidney; N28.1 Cyst of kidney, acquired; R14.3 Flatulence; K59.00 Constipation, unspecified; R31.0 Gross hematuria; N39.0 Urinary tract infection, site not specified
CPT/HCPCS: 36415; 74018; 76770; 80053; 85025; 85610

== ENCOUNTER 2019-04-19 15:28 | Emergency (ER) | payer MEDICARE ==
[2019-04-19 15:41] VITALS: TEMP 97.9
[2019-04-19 18:02] LABS: Basophils # (A) 0.3 k/uL (0-0.2); Basophils % (A) 3 %; Eosinophils # (A) 0.2 k/uL (0-0.7); Eosinophils % (A) 2 %; HCT 49.1 % (39.0-53.0); Lymphocytes # (A) 0.9 k/uL (1.0-4.8); Lymphocytes % (A) 9 %; MCH 29.9 pg (25.0-35.0); MCHC 30.5 g/dL (31.0-37.0); Mean Platelet Volume 7.3; Monocytes # (A) 0.6 k/uL (0-1.0); Monocytes % (A) 6 %; Neutrophils # (A) 7.9 k/uL (1.3-7.7); Neutrophils % (A) 79 %; Platelet Count 304 k/uL (150-450); RBC 5.01 m/uL (4.30-5.90); RDW 13.4 % (11.5-15.5)
[2019-04-19 18:14] LABS: Albumin 3.7 g/dL (3.5-5.0); Calcium 9.4 mg/dL (8.4-10.2); Potassium 4.8 mmol/L (3.5-5.1); Total Protein 6.8 g/dL (6.3-8.2)
[2019-04-19 18:33] LABS: INR 1.5 (<1.2); Partial Thromboplastin Time 28.2 sec (22.0-30.0)
--- NOTE | 2019-04-19 18:50 | ED ---
Abdominal Pain HPI - General Chief Complaint: Abdominal Pain Stated Complaint: Kidney stone? Time Seen by Provider: 04/19/19 16:45 Source: patient Mode of arrival: wheelchair Limitations: no limitations - History of Present Illness Initial Comments: Patient is a 73-year-old male presenting to the emergency Department from CT today. Patient states he has been seeing his urologist Dr. Sousa for possible kidney stones. Patient has been having hematuria for the last week. Patient has denied fever, chills. Patient states he's had a long history of kidney stones and doesn't normally get pain with these stones. Patient states he gets a lot of pressure from the stones. Patient states he is feeling a lot of lower abdominal pressure, no pain. Patient states he's been having trouble urinating for the past 2 days as well, with some urinary incontinence. Dr. Sousa ordered a CT today and he was sent here following the CT. Patient is currently on doxycycline. States he was hospitalized in the past for a severe infection caused by an obstructing stone. Patient has no other complaints at this time. Upon arrival to ER, vital signs are stable. - Related Data Home Medications Medication Instructions Recorded Confirmed Simvastatin 20 mg PO HS 02/21/15 02/28/19 Warfarin [Coumadin] 5 mg PO HS 04/06/17 02/28/19 Metoprolol Tartrate [Lopressor] 50 mg PO BID 05/19/17 02/28/19 Previous Rx's Medication Instructions Recorded Nitroglycerin Sl Tabs [Nitrostat] 0.4 mg SUBLINGUAL Q5M PRN #30 tab 03/04/19 Omeprazole [PriLOSEC] 40 mg PO AC-BRKFST #14 capsule. 03/04/19 Doxycycline [Vibramycin] 100 mg PO BID #28 cap 04/15/19 Ciprofloxacin HCl [Cipro] 500 mg PO BID 7 Days #14 tab 04/19/19 Allergies Allergy/AdvReac Type Severity Reaction Status Date / Time oxytetracycline Allergy Rash/Hives Verified 04/19/19 15:41 [From Terramycin] oxytetracycline HCl Allergy Rash/Hives Verified 04/19/19 15:41 [From Terramycin] Penicillins Allergy Rash/Hives Verified 04/19/19 15:41 Sulfa (Sulfonamide Allergy Rash/Hives Verified 04/19/19 15:41 Antibiotics) ciprofloxacin [From Cipro] AdvReac Abdominal Verified 04/19/19 15:41 Pain, NAUSEA Review of Systems ROS Statement: Those systems with pertinent positive or pertinent negative responses have been documented in the HPI. ROS Other: All systems not noted in ROS Statement are negative. Past Medical History Past Medical History: Atrial Fibrillation, Chest Pain / Angina, Hyperlipidemia, Hypertension, Osteoarthritis (OA) Additional Past Medical History / Comment(s): kidney stones History of Any Multi-Drug Resistant Organisms: None Reported Past Surgical History: Hernia Repair, Orthopedic Surgery Additional Past Surgical History / Comment(s): lump removed from throat, bilateral knee replacement, right hip replacement Past Anesthesia/Blood Transfusion Reactions: No Reported Reaction Past Psychological History: No Psychological Hx Reported Smoking Status: Never smoker Past Alcohol Use History: None Reported Past Drug Use History: None Reported - Past Family History Father History Unknown: Yes Family Medical History: Myocardial Infarction ([place]) Additional Family Medical History / Comment(s): prostate cancer Mother History Unknown: Yes Family Medical History: Cancer Brother(s) History Unknown: Yes Family Medical History: Cancer Additional Family Medical History / Comment(s): prostate Sister(s) History Unknown: Yes Family Medical History: Cancer Additional Family Medical History / Comment(s): ovarian, throat/neck cancer Daughter(s) History Unknown: Yes Family Medical History: Thyroid Disorder Additional Family Medical History / Comment(s): hypothyroid General Exam - General Exam Comments Initial Comments: GENERAL: Well-appearing, well-nourished and in no acute distress, although appears uncomfortable. HEAD: Atraumatic, normocephalic. EYES: Pupils equal round and reactive to light, extraocular movements intact, sclera anicteric, conjunctiva are normal. ENT: TMs normal, nares patent, oropharynx clear without exudates. Moist mucous membranes. NECK: Normal range of motion, supple without lymphadenopathy or JVD. LUNGS: Breath sounds clear to auscultation bilaterally and equal. No wheezes rales or rhonchi. HEART: Regular rate and rhythm without murmurs, rubs or gallops. ABDOMEN: Mild pain with palpation of the right side of the abdomen, increase in pressure with palpation of suprapubic area. Soft, normoactive bowel sounds. No guarding, no rebound. No masses appreciated. : Deferred EXTREMITIES: Normal range of motion, no pitting or edema. No clubbing or cyanosis. NEUROLOGICAL: Cranial nerves II through XII grossly intact. Normal speech, normal gait. PSYCH: Normal mood, normal affect. SKIN: Warm, Dry, normal turgor, no rashes or lesions noted. Limitations: no limitations Course Vital Signs 04/19/19 04/19/19 04/19/19 15:38 19:01 21:00 Temperature 97.9 F Pulse Rate 82 86 84 Respiratory 18 20 18 Rate Blood Pressure 99/68 134/93 138/109 O2 Sat by Pulse 99 98 96 Oximetry Medical Decision Making - Medical Decision Making Patient is a 73-year-old male presenting from CT for possible kidney stone. Patient's vital signs are normal upon arrival. Patient has history of kidney stones as well as needing to be hospitalized for obstructing stone causing infection. Patient's urologist is Dr. Sousa. On exam patient has tenderness of the right lower quadrant as well as increase in pressure of the suprapubic area. Patient has not been able to urinate. Bladder scan revealed approximately 600 mL of fluid. A catheter was placed. CBC shows slight elevation in neutrophils at 7.9. CMP shows be run at 32, creatinine 1.60. Similar to previous. UA reveals large amount of blood, greater than 182 WBC, many wbc clumps. CT of the abdomen shows a 0.4 cm obstructing right distal ureter stone above the ureteral vascular junction area. There is a large nonobstructing renal stone of the left kidney. There is marked right and left hydronephrosis. There has been no urine output from catheter and patient is still reporting suprapubic fullness and pressure.. Patient was given 1 L of fluids. Bladder scan was reperformed and showed 38 mL. Case discussed with Dr. Milian. Urology was contacted and Dr. Chin is comfortable with patient being discharged home on . Patient will follow up with Dr. Sousa on Monday morning. Patient will be sent home with a catheter in place. Patient is in agreement with this plan of care. Strict return parameters were discussed with the patient has a and they verbalized understanding. - Lab Data Result diagrams: 04/19/19 17:48 04/19/19 17:48 Lab Results 04/19/19 04/19/19 04/19/19 Range/Units 17:48 17:48 17:48 WBC 10.0 (3.8-10.6) k/uL RBC 5.01 (4.30-5.90) m/uL Hgb 15.0 (13.0-17.5) gm/dL Hct 49.1 (39.0-53.0) % MCV 98.0 (80.0-100.0) fL MCH 29.9 (25.0-35.0) pg MCHC 30.5 L (31.0-37.0) g/dL RDW 13.4 (11.5-15.5) % Plt Count 304 (150-450) k/uL Neutrophils % 79 % Lymphocytes % 9 % Monocytes % 6 % Eosinophils % 2 % Basophils % 3 % Neutrophils # 7.9 H (1.3-7.7) k/uL Lymphocytes # 0.9 L (1.0-4.8) k/uL Monocytes # 0.6 (0-1.0) k/uL Eosinophils # 0.2 (0-0.7) k/uL Basophils # 0.3 H (0-0.2) k/uL PT 15.0 H (9.0-12.0) sec INR 1.5 H (<1.2) APTT 28.2 (22.0-30.0) sec Sodium 142 (137-145) mmol/L Potassium 4.8 (3.5-5.1) mmol/L Chloride 108 H (98-107) mmol/L Carbon Dioxide 24 (22-30) mmol/L Anion Gap 10 mmol/L BUN 32 H (9-20) mg/dL Creatinine 1.60 H (0.66-1.25) mg/dL Est GFR (CKD-EPI)AfAm 48 (>60 ml/min/1.73 sqM) Est GFR (CKD-EPI)NonAf 42 (>60 ml/min/1.73 sqM) Glucose 110 H (74-99) mg/dL Calcium 9.4 (8.4-10.2) mg/dL Total Bilirubin 1.0 (0.2-1.3) mg/dL AST 27 (17-59) U/L ALT 31 (21-72) U/L Alkaline Phosphatase 49 (38-126) U/L Total Protein 6.8 (6.3-8.2) g/dL Albumin 3.7 (3.5-5.0) g/dL Urine Color Urine Appearance (Clear) Urine pH (5.0-8.0) Ur Specific Christine (1.001-1.035) Urine Protein (Negative) Urine Glucose (UA) (Negative) Urine Ketones (Negative) Urine Blood (Negative) Urine Nitrite (Negative) Urine Bilirubin (Negative) Urine Urobilinogen (<2.0) mg/dL Ur Leukocyte Esterase (Negative) Urine RBC (0-5) /hpf Urine WBC (0-5) /hpf Urine WBC Clumps (None) /hpf Ur Squamous Epith Cells (0-4) /hpf 04/19/19 Range/Units 19:05 WBC (3.8-10.6) k/uL RBC (4.30-5.90) m/uL Hgb (13.0-17.5) gm/dL Hct (39.0-53.0) % MCV (80.0-100.0) fL MCH (25.0-35.0) pg MCHC (31.0-37.0) g/dL RDW (11.5-15.5) % Plt Count (150-450) k/uL Neutrophils % % Lymphocytes % % Monocytes % % Eosinophils % % Basophils % % Neutrophils # (1.3-7.7) k/uL Lymphocytes # (1.0-4.8) k/uL Monocytes # (0-1.0) k/uL Eosinophils # (0-0.7) k/uL Basophils # (0-0.2) k/uL PT (9.0-12.0) sec INR (<1.2) APTT (22.0-30.0) sec Sodium (137-145) mmol/L Potassium (3.5-5.1) mmol/L Chloride (98-107) mmol/L Carbon Dioxide (22-30) mmol/L Anion Gap mmol/L BUN (9-20) mg/dL Creatinine (0.66-1.25) mg/dL Est GFR (CKD-EPI)AfAm (>60 ml/min/1.73 sqM) Est GFR (CKD-EPI)NonAf (>60 ml/min/1.73 sqM) Glucose (74-99) mg/dL Calcium (8.4-10.2) mg/dL Total Bilirubin (0.2-1.3) mg/dL AST (17-59) U/L ALT (21-72) U/L Alkaline Phosphatase (38-126) U/L Total Protein (6.3-8.2) g/dL Albumin (3.5-5.0) g/dL Urine Color Light Red Urine Appearance Turbid (Clear) Urine pH 5.5 (5.0-8.0) Ur Specific Christine 1.014 (1.001-1.035) Urine Protein 1+ H (Negative) Urine Glucose (UA) Negative (Negative) Urine Ketones Negative (Negative) Urine Blood Large H (Negative) Urine Nitrite Negative (Negative) Urine Bilirubin Negative (Negative) Urine Urobilinogen <2.0 (<2.0) mg/dL Ur Leukocyte Esterase Large H (Negative) Urine RBC 156 H (0-5) /hpf Urine WBC >182 H (0-5) /hpf Urine WBC Clumps Many H (None) /hpf Ur Squamous Epith Cells 14 H (0-4) /hpf Disposition Clinical Impression: Renal calculus, right, Abdominal pain Disposition: HOME SELF-CARE Condition: Stable Instructions (If sedation given, give patient instructions): Kidney Stones (ED) Additional Instructions: Please return to the Emergency Department if symptoms worsen or any other concerns. Follow-up with Dr. Sousa on Monday morning. Prescriptions: Ciprofloxacin HCl [Cipro] 500 mg PO BID 7 Days #14 tab Is patient prescribed a controlled substance at d/c from ED?: No Referrals: Audrey Hall III, MD [Primary Care Provider] - 1-2 days
[2019-04-19 19:25] LABS: Appearance,Urine Turbid (Clear); Bilirubin,Urine Negative (Negative); Blood,Urine Large (Negative); Color,Urine Light Red; Glucose,Urine (UA) Negative (Negative); Ketones,Urine Negative (Negative); Leukocyte Esterase,Urine Large (Negative); Nitrite,Urine Negative (Negative); PH, Urine 5.5 (5.0-8.0); Protein,Urine 1+ (Negative); RBC,Urine 156 /hpf (0-5); Specific Gravity,Urine 1.014 (1.001-1.035); Squamous Epithelial Cell,Urine 14 /hpf (0-4); Urobilinogen,Urine <2.0 mg/dL (<2.0); WBC,Urine >182 /hpf (0-5)
[2019-04-19] MEDS ORDERED: SODIUM CHLORIDE 0.9% 1,000 ML IV STA (20:06)
[2019-04-19 21:07] VITALS: RESP 18
[2019-04-19] MEDS ORDERED: CIPROFLOXACIN HCL 500 MG TAB PO STA (21:10)
[2019-04-19 21:46] VITALS: BP 142/97; PULSE 75
== END 2019-04-19 21:45 | disposition home or self-care (01) ==
LOC: EC 15:28
DX: N13.2 Hydronephrosis with renal and ureteral calculous obstruction (principal); I48.91 Unspecified atrial fibrillation; E78.5 Hyperlipidemia, unspecified; I10 Essential (primary) hypertension; M19.90 Unspecified osteoarthritis, unspecified site; Z79.01 Long term (current) use of anticoagulants; Z79.899 Other long term (current) drug therapy; Z88.0 Allergy status to penicillin; Z88.1 Allergy status to other antibiotic agents; Z88.2 Allergy status to sulfonamides; Z96.653 Presence of artificial knee joint, bilateral; Z96.641 Presence of right artificial hip joint
CPT/HCPCS: 36415; 51702; 74176; 80053; 81001; 85025; 85610; 85730; 87086; 96360; 99284

== ENCOUNTER → 2019-04-19 | Outpatient (CLI) | payer MEDICARE ==
--- NOTE | 2019-04-19 15:04 | CT ---
EXAMINATION TYPE: CT abdomen pelvis wo con DATE OF EXAM: 04/19/2019 COMPARISON: 05/25/2017 INDICATION: Hematuria and back pain. DLP: 1758.6 mGycm, Automated exposure control for dose reduction was used. CONTRAST: 0 mL of Isovue 300. Study performed without Oral Contrast TECHNIQUE: Axial images were obtained from above the diaphragm to the pubic rami in the axial plane a t 5 mm thick sections. Reconstructed images are reviewed on the computer in the coronal plane. FINDINGS: Limited CT sections are obtained the lung bases. The lung bases are clear. Coronary artery calcific ation is present. CT ABDOMEN: Liver: Normal Spleen: Normal Pancreas: Normal Adrenal glands: The adrenal glands are normal. Gallbladder: Cholelithiasis is present. Kidneys: No masses are evident. There is marked right and mild to moderate left hydronephrosis. There is a large nonobstructing renal stone in the inferior pole left kidney measuring 1.2 cm. There is mi ld right hydroureter which extends the urinary bladder. No obstructing left ureteral stone is evident . There is [id number] right hydroureter to the mid pelvis. Distal ureteral stone is present jus t above the right ureterovesical junction measuring 0.4 cm. Cephalic cysts are on the lateral right k idney measuring 3.1 cm and 30 Hounsfield units and 4.2 cm and 22 Hounsfield units. Aorta: Vascular calcification is within the aorta. Inferior vena cava: Normal. CT PELVIS: Loops of bowel within the abdomen and pelvis are normal. There is lack of oral contrast limiting bowel evaluation. Appendix: Not visualized. Urinary bladder: Distended. There appears to be some prostate hypertrophy which contains calcificatio ns. Urinary bladder calcifications are not clearly identified. There is limitation within the lower p grady due to right hip prosthesis. Genitourinary structures: Prostate is somewhat prominent and contains a large calcification inferiorl y Osseous structures: No suspicious lytic or sclerotic lesions. Facet degenerative changes are present IMPRESSIONS: 1. 0.4 cm obstructing right distal ureteral stone above the ureterovesical junction area 2. Large nonobstructing renal stone inferior pole left kidney. 3. Marked right and mild to moderate left hydronephrosis with some left hydroureter. Consider recent passage of a stone on the left. 4. Cholelithiasis. 5. Right renal cysts
== END | disposition home or self-care (01) ==
LOC: RADCTMAIN 14:18
PROVIDERS: ATTEND Urology
DX: N13.2 Hydronephrosis with renal and ureteral calculous obstruction (principal); N13.4 Hydroureter; N28.1 Cyst of kidney, acquired; K80.20 Calculus of gallbladder without cholecystitis without obstruction; Z88.0 Allergy status to penicillin; Z88.1 Allergy status to other antibiotic agents; Z88.2 Allergy status to sulfonamides
CPT/HCPCS: 74176

== ENCOUNTER 2019-05-30 14:01 | Inpatient (IN) | payer MEDICARE ==
--- NOTE | 2019-05-30 14:40 | ED ---
General Adult HPI - General Chief complaint: Dizziness Stated complaint: Pulled muscle in arm Time Seen by Provider: 05/30/19 14:16 Source: patient Mode of arrival: wheelchair Limitations: no limitations - History of Present Illness Initial comments: Dictation was produced using [employer] dictation software. please excuse any grammatical, word or spelling errors. Chief Complaint: 73-year-old male with past medical history of atrial fibrillation, dyslipidemia hypertension presents today with low blood pressure and bruising of the left upper extremity. History of Present Illness: 73-year-old male he has multiple comorbidities. He was initially seen and [facility]. He had vitals drawn is found have low blood pressure measuring 80/60. He does have intermittent episodes of dizziness and presyncope. Yesterday around the evening he was reaching down to try to pull up his pants when he felt a snap to his left elbow. This morning he woke up with severe bruising. Patient went to the urgent care for evaluation of the arm. Interval placement of dizziness to them. who was at bedside reports that they checked his blood pressure multiple times and was found to be low. Patient is recently started on medications by urologist for urinary retention. Do not know the exact name of this. Patient also on metoprolol. The ROS documented in this emergency department record has been reviewed and confirmed by me. Those systems with pertinent positive or negative responses have been documented in the HPI. All other systems are other negative and/or noncontributory. PHYSICAL EXAM: General Impression: Alert and oriented x3, not in acute distress HEENT: Normocephalic atraumatic, extra-ocular movements intact, pupils equal and reactive to light bilaterally, mucous membranes moist. Cardiovascular: Heart regular rate and rhythm, S1&S2 audible, no murmurs, rubs or gallops Chest: Lungs clear to auscultation bilaterally, no rhonchi, no wheeze, no rales Abdomen: Bowel sounds present, abdomen soft, non-tender, non-distended, no organomegaly Musculoskeletal: Pulses present and equal in all extremities, no peripheral edema Left upper extremity: Bulge to the mid biceps area with ecchymoses over the entire proximal left upper extremity. Radial pulse and cap refill in the arm is unremarkable. Patient has no sensory deficits. Motor: no focal deficits noted Neurological: CN II-XII grossly intact, no focal motor or sensory deficits noted Skin: Intact with no visualized rashes Psych: Normal affect and mood ED course: 73-year-old male presents with arm pain and low blood pressure with symptoms of presyncope. Signs upon arrival shows blood pressure 106/75, rest of vital signs within acceptable limits. Left upper extremity complaint is likely secondary to biceps tendon rupture. Laboratory evaluation obtained. CBC is unremarkable. Coag panel shows INR 4.5. Metabolic panel shows creatinine 1.29. Glucose 111. Cardiac enzymes negative. INR is supratherapeutic. Patient was reevaluated at bedside. He still reports being symptomatic. Blood pressures were repeated and was low-normal. Given that patient is sitting symptoms with concern for low blood pressure despite b eing within the normal range this is likely low for him considering his history of hypertension. Patient complains of worsening symptoms with ambulation. We will have patient admitted. We will around his Coumadin currently because his INR is 4.5. Orthopedic surgery will also be consulted for management of patient's biceps tendon rupture. EKG interpretation: Ventricular rate 70, atrial fibrillation, QRS 144, QTc 506. No NV prolongation. Compared to EKG from 02/28/2019 showing no changes. O verall, this EKG is unremarkable - Related Data Home Medications Medication Instructions Recorded Confirmed Simvastatin 20 mg PO HS 02/21/15 02/28/19 Warfarin [Coumadin] 5 mg PO HS 04/06/17 02/28/19 Metoprolol Tartrate [Lopressor] 50 mg PO BID 05/19/17 02/28/19 Previous Rx's Medication Instructions Recorded Nitroglycerin Sl Tabs [Nitrostat] 0.4 mg SUBLINGUAL Q5M PRN #30 tab 03/04/19 Omeprazole [PriLOSEC] 40 mg PO AC-BRKFST #14 capsule. 03/04/19 Doxycycline [Vibramycin] 100 mg PO BID #28 cap 04/15/19 Ciprofloxacin HCl [Cipro] 500 mg PO BID 7 Days #14 tab 04/19/19 Allergies Allergy/AdvReac Type Severity Reaction Status Date / Time oxytetracycline Allergy Rash/Hives Verified 05/30/19 14:07 [From Terramycin] oxytetracycline HCl Allergy Rash/Hives Verified 05/30/19 14:07 [From Terramycin] Penicillins Allergy Rash/Hives Verified 05/30/19 14:07 Sulfa (Sulfonamide Allergy Rash/Hives Verified 05/30/19 14:07 Antibiotics) ciprofloxacin [From Cipro] AdvReac Abdominal Verified 05/30/19 14:07 Pain, NAUSEA Review of Systems ROS Statement: Those systems with pertinent positive or pertinent negative responses have been documented in the HPI. ROS Other: All systems not noted in ROS Statement are negative. Past Medical History Past Medical History: Atrial Fibrillation, Chest Pain / Angina, Hyperlipidemia, Hypertension, Osteoarthritis (OA) Additional Past Medical History / Comment(s): kidney stones History of Any Multi-Drug Resistant Organisms: None Reported Past Surgical History: Hernia Repair, Orthopedic Surgery Additional Past Surgical History / Comment(s): lump removed from throat, bilateral knee replacement, right hip replacement Past Anesthesia/Blood Transfusion Reactions: No Reported Reaction Past Psychological History: No Psychological Hx Reported Smoking Status: Never smoker Past Alcohol Use History: None Reported Past Drug Use History: None Reported - Past Family History Father History Unknown: Yes Family Medical History: Myocardial Infarction ([place]) Additional Family Medical History / Comment(s): prostate cancer Mother History Unknown: Yes Family Medical History: Cancer Brother(s) History Unknown: Yes Family Medical History: Cancer Additional Family Medical History / Comment(s): prostate Sister(s) History Unknown: Yes Family Medical History: Cancer Additional Family Medical History / Comment(s): ovarian, throat/neck cancer Daughter(s) History Unknown: Yes Family Medical History: Thyroid Disorder Additional Family Medical History / Comment(s): hypothyroid General Exam Limitations: no limitations Course Vital Signs 05/30/19 05/30/19 14:02 14:33 Temperature 97.3 F L Pulse Rate 77 66 Respiratory 18 19 Rate Blood Pressure 106/75 116/70 O2 Sat by Pulse 99 94 L Oximetry Medical Decision Making - Lab Data Result diagrams: 05/30/19 14:30 05/30/19 14:30 Lab Results 05/30/19 05/30/19 05/30/19 Range/Units 14:30 14:30 14:30 WBC 7.9 (3.8-10.6) k/uL RBC 4.84 (4.30-5.90) m/uL Hgb 14.6 (13.0-17.5) gm/dL Hct 46.2 (39.0-53.0) % MCV 95.3 (80.0-100.0) fL MCH 30.2 (25.0-35.0) pg MCHC 31.7 (31.0-37.0) g/dL RDW 13.9 (11.5-15.5) % Plt Count 211 (150-450) k/uL Neutrophils % 79 % Lymphocytes % 10 % Monocytes % 6 % Eosinophils % 2 % Basophils % 1 % Neutrophils # 6.3 (1.3-7.7) k/uL Lymphocytes # 0.8 L (1.0-4.8) k/uL Monocytes # 0.5 (0-1.0) k/uL Eosinophils # 0.2 (0-0.7) k/uL Basophils # 0.1 (0-0.2) k/uL PT 42.8 H (9.0-12.0) sec INR 4.5 H (<1.2) APTT 44.3 H (22.0-30.0) sec Sodium 142 (137-145) mmol/L Potassium 4.6 (3.5-5.1) mmol/L Chloride 111 H (98-107) mmol/L Carbon Dioxide 22 (22-30) mmol/L Anion Gap 9 mmol/L BUN 19 (9-20) mg/dL Creatinine 1.29 H (0.66-1.25) mg/dL Est GFR (CKD-EPI)AfAm 62 (>60 ml/min/1.73 sqM) Est GFR (CKD-EPI)NonAf 54 (>60 ml/min/1.73 sqM) Glucose 111 H (74-99) mg/dL Calcium 9.1 (8.4-10.2) mg/dL Magnesium 1.9 (1.6-2.3) mg/dL Total Bilirubin 0.8 (0.2-1.3) mg/dL AST 18 (17-59) U/L ALT 20 L (21-72) U/L Alkaline Phosphatase 61 (38-126) U/L Troponin I (0.000-0.034) ng/mL Total Protein 6.5 (6.3-8.2) g/dL Albumin 3.7 (3.5-5.0) g/dL 05/30/19 Range/Units 14:30 WBC (3.8-10.6) k/uL RBC (4.30-5.90) m/uL Hgb (13.0-17.5) gm/dL Hct (39.0-53.0) % MCV (80.0-100.0) fL MCH (25.0-35.0) pg MCHC (31.0-37.0) g/dL RDW (11.5-15.5) % Plt Count (150-450) k/uL Neutrophils % % Lymphocytes % % Monocytes % % Eosinophils % % Basophils % % Neutrophils # (1.3-7.7) k/uL Lymphocytes # (1.0-4.8) k/uL Monocytes # (0-1.0) k/uL Eosinophils # (0-0.7) k/uL Basophils # (0-0.2) k/uL PT (9.0-12.0) sec INR (<1.2) APTT (22.0-30.0) sec Sodium (137-145) mmol/L Potassium (3.5-5.1) mmol/L Chloride (98-107) mmol/L Carbon Dioxide (22-30) mmol/L Anion Gap mmol/L BUN (9-20) mg/dL Creatinine (0.66-1.25) mg/dL Est GFR (CKD-EPI)AfAm (>60 ml/min/1.73 sqM) Est GFR (CKD-EPI)NonAf (>60 ml/min/1.73 sqM) Glucose (74-99) mg/dL Calcium (8.4-10.2) mg/dL Magnesium (1.6-2.3) mg/dL Total Bilirubin (0.2-1.3) mg/dL AST (17-59) U/L ALT (21-72) U/L Alkaline Phosphatase (38-126) U/L Troponin I <0.012 (0.000-0.034) ng/mL Total Protein (6.3-8.2) g/dL Albumin (3.5-5.0) g/dL Disposition Clinical Impression: Pre-syncope Disposition: ADMITTED IP TO THIS HOSP Condition: Fair Referrals: Audrey Hall III, MD [Primary Care Provider] - 1-2 days Decision Time: 16:08
[2019-05-30 14:56] LABS: Basophils # (A) 0.1 k/uL (0-0.2); Basophils % (A) 1 %; Eosinophils # (A) 0.2 k/uL (0-0.7); Eosinophils % (A) 2 %; HCT 46.2 % (39.0-53.0); HGB 14.6 gm/dL (13.0-17.5); Lymphocytes # (A) 0.8 k/uL (1.0-4.8); Lymphocytes % (A) 10 %; MCH 30.2 pg (25.0-35.0); MCHC 31.7 g/dL (31.0-37.0); MCV 95.3 fL (80.0-100.0); Mean Platelet Volume 7.6; Monocytes # (A) 0.5 k/uL (0-1.0); Monocytes % (A) 6 %; Neutrophils # (A) 6.3 k/uL (1.3-7.7); Neutrophils % (A) 79 %; Platelet Count 211 k/uL (150-450); RBC 4.84 m/uL (4.30-5.90); RDW 13.9 % (11.5-15.5); WBC 7.9 k/uL (3.8-10.6)
--- NOTE | 2019-05-30 15:01 | XR ---
EXAMINATION TYPE: XR chest 2V DATE OF EXAM: 05/30/2019 COMPARISON: NONE HISTORY: Shortness of breath TECHNIQUE: Frontal and lateral views of the chest are obtained. FINDINGS: Scattered senescent parenchymal changes noted. Hyperinflation compatible with COPD. No evidence for infiltrate. No evidence for atelectasis. Heart size is stable. Mediastinal structures are stable and grossly unremarkable. No evidence for hilar prominence. Degenerative changes dorsal spine. IMPRESSION: 1. No evidence for acute pulmonary disease.
[2019-05-30 15:05] LABS: INR 4.5 (<1.2); Prothrombin Time 42.8 sec (9.0-12.0)
--- NOTE | 2019-05-30 15:05 | XR ---
EXAMINATION TYPE: XR humerus LT DATE OF EXAM: 05/30/2019 COMPARISON: NONE HISTORY: Arm pain and swelling TECHNIQUE: 2 views submitted. FINDINGS: The osseous structures are intact and the joint spaces are preserved. Diffuse osteopenia. Arthropath y of the shoulders. Rib deformities are noted. There is soft tissue edema. No destructive changes. No acute fracture. IMPRESSION: 1. No acute fracture or dislocation. There is soft tissue edema and arthropathy of the shoulder. 2. Chronic rib deformities.
[2019-05-30 15:06] LABS: Albumin 3.7 g/dL (3.5-5.0); Calcium 9.1 mg/dL (8.4-10.2); Magnesium 1.9 mg/dL (1.6-2.3); Partial Thromboplastin Time 44.3 sec (22.0-30.0); Potassium 4.6 mmol/L (3.5-5.1); Total Bilirubin 0.8 mg/dL (0.2-1.3); Total Protein 6.5 g/dL (6.3-8.2)
[2019-05-30] MEDS ORDERED: NALOXONE 0.4 MG/ML 1 ML VIAL IV PRN (16:01)
[2019-05-30] MEDS ORDERED: SODIUM CHLORIDE 0.9% 500 ML 500 ML IV STA (16:03)
--- NOTE | 2019-05-30 17:30 | P.HPIM ---
History of Present Illness Patient is a pleasant 71-year-old gentleman with known history of atrial fibrillation and is in metoprolol came in because of her lightheadedness patient is hypotensive with blood pressure as low as 80 x 60. Patient the heard jonathan byrd reaching out to for his trousers had a snap in the left elbow appears to have bicipital tendon rupture. Patient on Coumadin INR is 4.5 he appears to have some hematoma at the bicipital tendon area. She and appears to have nephrolithiasis because of which patient was started on alpha eugene, doxazosin which may be contributing to his hypotension, this medication was started recently. Patient denied any fever chills shortness of breath patient denied any history of congestive heart failure although patient's last EF was mildly depressed at 40 with 50% and mild pulmonary hypertension and moderate concentrate left ventricular hypertrophy without any significant valvular abnormalities on EKG showed chronic A. fib rate controlled with right bundle branch block with chest x-ray soft tissue edema and chronic rib fractures. His present creatinine is 1.1 and better than his baseline. INR is supratherapeutic Review of Systems REVIEW OF SYSTEMS: CONSTITUTIONAL: No fever, no malaise, no fatigue. HEENT: No recent visual problems or hearing problems. Denied any sore throat. CARDIOVASCULAR: No chest pain, orthopnea, PND, no palpitations, no syncope. PULMONARY: No shortness of breath, no cough, no hemoptysis. GASTROINTESTINAL: No diarrhea, no nausea, no vomiting, no abdominal pain. NEUROLOGICAL: No headaches, no weakness, no numbness. HEMATOLOGICAL: Denies any bleeding or petechiae. GENITOURINARY: Denies any burning micturition, frequency, or urgency. MUSCULOSKELETAL/RHEUMATOLOGICAL: As mentioned in HPI ENDOCRINE: Denies any polyuria or polydipsia. The rest of the 14-point review of systems is negative. Past Medical History Past Medical History: Atrial Fibrillation, Chest Pain / Angina, Hyperlipidemia, Hypertension, Osteoarthritis (OA) Additional Past Medical History / Comment(s): kidney stones History of Any Multi-Drug Resistant Organisms: None Reported Past Surgical History: Hernia Repair, Orthopedic Surgery Additional Past Surgical History / Comment(s): lump removed from throat, bilateral knee replacement, right hip replacement Past Anesthesia/Blood Transfusion Reactions: No Reported Reaction Past Psychological History: No Psychological Hx Reported Smoking Status: Never smoker Past Alcohol Use History: None Reported Past Drug Use History: None Reported - Past Family History Father History Unknown: Yes Family Medical History: Myocardial Infarction ([place]) Additional Family Medical History / Comment(s): prostate cancer Mother History Unknown: Yes Family Medical History: Cancer Brother(s) History Unknown: Yes Family Medical History: Cancer Additional Family Medical History / Comment(s): prostate Sister(s) History Unknown: Yes Family Medical History: Cancer Additional Family Medical History / Comment(s): ovarian, throat/neck cancer Daughter(s) History Unknown: Yes Family Medical History: Thyroid Disorder Additional Family Medical History / Comment(s): hypothyroid Medications and Allergies Home Medications Medication Instructions Recorded Confirmed Type Simvastatin 20 mg PO HS 02/21/15 05/30/19 History Warfarin [Coumadin] 5 mg PO HS 04/06/17 05/30/19 History Metoprolol Tartrate [Lopressor] 50 mg PO HS 05/19/17 05/30/19 History Nitroglycerin Sl Tabs [Nitrostat] 0.4 mg SUBLINGUAL Q5M PRN #30 tab 03/04/19 05/30/19 Rx Acetaminophen Tab [Tylenol] 500 - 1,000 mg PO Q6H PRN 05/30/19 05/30/19 History Doxazosin [Cardura] 4 mg PO HS 05/30/19 05/30/19 History Metoprolol Tartrate [Lopressor] 25 mg PO QAM 05/30/19 05/30/19 History Allergies Allergy/AdvReac Type Severity Reaction Status Date / Time oxytetracycline Allergy Rash/Hives Verified 05/30/19 16:46 [From Terramycin] oxytetracycline HCl Allergy Rash/Hives Verified 05/30/19 16:46 [From Terramycin] Penicillins Allergy Rash/Hives Verified 05/30/19 16:46 Sulfa (Sulfonamide Allergy Rash/Hives Verified 05/30/19 16:46 Antibiotics) ciprofloxacin [From Cipro] AdvReac Abdominal Verified 05/30/19 16:46 Pain, NAUSEA Physical Exam Vitals: Vital Signs Temp Pulse Resp BP Pulse Ox 05/30/19 16:29 98.2 F 05/30/19 16:00 73 18 95/74 99 05/30/19 14:33 66 19 116/70 94 L 05/30/19 14:02 97.3 F L 77 18 106/75 99 Intake and Output 05/30/19 05/30/19 05/30/19 06:59 14:59 22:59 Other: Weight 149.685 kg PHYSICAL EXAMINATION: GENERAL: The patient is alert and oriented x3, not in any acute distress. Well developed, well nourished. Obese HEENT: Pupils are round and equally reacting to light. EOMI. No scleral icterus. No conjunctival pallor. Normocephalic, atraumatic. No pharyngeal erythema. No thyromegaly. CARDIOVASCULAR: S1 and S2 present. No murmurs, rubs, or gallops. PULMONARY: Chest is clear to auscultation, no wheezing or crackles. ABDOMEN: Soft, nontender, nondistended, normoactive bowel sounds. No palpable organomegaly. MUSCULOSKELETAL: No joint swelling or deformity. Anticoagulation has swelling in the left sepsis area appears to have bulge in the lower biceps area consistent with proximal tendon rupture of the biceps patient's Abduction about 90 is restricted because of pain and active motion although the pain is minimal. Patient may have a hematoma in that area as well. EXTREMITIES: No cyanosis, clubbing, or pedal edema. NEUROLOGICAL: Gross neurological examination did not reveal any focal deficits. SKIN: No rashes. Results CBC & Chem 7: 05/30/19 14:30 05/30/19 14:30 Labs: Abnormal Lab Results - Last 24 Hours (Table) 05/30/19 05/30/19 05/30/19 Range/Units 14:30 14:30 14:30 Lymphocytes # 0.8 L (1.0-4.8) k/uL PT 42.8 H (9.0-12.0) sec INR 4.5 H (<1.2) APTT 44.3 H (22.0-30.0) sec Chloride 111 H (98-107) mmol/L Creatinine 1.29 H (0.66-1.25) mg/dL Glucose 111 H (74-99) mg/dL ALT 20 L (21-72) U/L Assessment and Plan Plan: -Near syncope or dizziness: Secondary to hypotension may be related to his Cardura that was started recently for his kidney stones. Patient does have atrial fibrillation with monitor him on telemetry will hold off on his metoprolol but may require lower dose of metoprolol. Patient was started and continued on IV fluids -Possible Bicipital tendon rupture with a possible hematoma orthopedic surgery was consulted, patient may have a hematoma that may have led to his LIGHTHEADEDNESS although it lightheadedness was present even before this event -Atrial fibrillation chronic A. fib presently rate controlled anti-coagulation with Coumadin suprapubic and Coumadin possible hematoma off the lleft arm, hold off on Coumadin and repeat INR tomorrow -Nephrolithiasis recent but not presently -Hyperlipidemia -Hypertension
[2019-05-30] MEDS: SODIUM CHLORIDE 0.9% 1,000 ML IV SCH (18:58)
[2019-05-30] MEDS: Acetaminophen-Codeine 300-30mg TAB PO PRN ×2 (20:09→23:35)
[2019-05-30] MEDS: ATORVASTATIN 10 MG TAB PO SCH (20:09)
[2019-05-30] MEDS ORDERED: DOXAZOSIN 4 MG TAB PO SCH (21:00)
[2019-05-31] MEDS ORDERED: SODIUM CHLORIDE 0.9% 1,000 ML IV ONE (00:39)
[2019-05-31 00:54] LABS: Glucose,Whole Blood 104 mg/dL (75-99)
[2019-05-31 02:01] LABS: Calcium 8.3 mg/dL (8.4-10.2); Potassium 4.2 mmol/L (3.5-5.1)
[2019-05-31 02:03] LABS: Basophils % (A) 0 %; Eosinophils # (A) 0.2 k/uL (0-0.7); Eosinophils % (A) 2 %; HCT 38.8 % (39.0-53.0); HGB 12.1 gm/dL (13.0-17.5); Lymphocytes # (A) 0.9 k/uL (1.0-4.8); Lymphocytes % (A) 13 %; MCHC 31.2 g/dL (31.0-37.0); MCV 96.1 fL (80.0-100.0); Mean Platelet Volume 7.6; Monocytes # (A) 0.6 k/uL (0-1.0); Monocytes % (A) 8 %; Neutrophils # (A) 5.2 k/uL (1.3-7.7); Neutrophils % (A) 75 %; Platelet Count 174 k/uL (150-450); RBC 4.03 m/uL (4.30-5.90); RDW 13.9 % (11.5-15.5)
[2019-05-31 02:08] LABS: INR 4.2 (<1.2); Prothrombin Time 40.5 sec (9.0-12.0)
[2019-05-31] MEDS: ACETAMINOPHEN TAB 500 MG TAB PO PRN ×3 (02:40→15:33)
[2019-05-31] MEDS: Acetaminophen-Codeine 300-30mg TAB PO PRN ×3 (04:55→19:36)
[2019-05-31] MEDS: SODIUM CHLORIDE 0.9% 1,000 ML IV SCH ×2 (04:58→18:12)
[2019-05-31 05:04] LABS: INR 4.6 (<1.2)
[2019-05-31 05:06] LABS: Calcium 8.4 mg/dL (8.4-10.2); Potassium 4.4 mmol/L (3.5-5.1)
[2019-05-31] MEDS: PANTOPRAZOLE 40 MG TABLET PO SCH (06:53)
--- NOTE | 2019-05-31 07:55 | P.CRDCN ---
History of Present Illness Consult date: 05/31/19 Chief complaint: Left arm pain History of present illness: This is a very pleasant 73-year-old gentleman who sees Dr. Knowles in the office on regular basis with a past medical history significant for long-standing persistent atrial fibrillation on oral anticoagulation was Coumadin, known mild cardiomyopathy with an ejection fraction of 45% based on echocardiogram was performed in February 2019, known moderate mitral regurgitation as well based on echo was performed around the same time, resented to the hospital complaining of left arm discomfort. The patient was at home when he tried to lift some sinking the left arm and he felt "snap" in the left arm. Subsequently he started experiencing severe left arm pain as well as swelling. He presented to the emergency room where an x-ray was performed and showed no evidence of fracture. Currently the patient is in process of being seen by orthopedic surgeon. On examination he does have severe left arm edema and bruises. He was receiving Coumadin for anticoagulation for the atrial fibrillation as an outpatient and currently the Coumadin is on hold. Otherwise he did not have any symptoms of chest pain or chest discomfort, shortness of breath, dizziness, heart racing, or loss of consciousness or syncope. In February 2018 he underwent a heart catheterization which revealed mild nonobstructive coronary artery disease. Around the same time he underwent an echocardiogram which showed mild cardiomyopathy was EF around 45%. Reason the patient was transferred to the intensive. Because yesterday he was admitted to the hospital or the orthopedic floor and he was found to be slightly hypotensive, subsequently the metoprolol was held and he was transferred to the intensive care unit. Since then the blood pressure has been within normal limits. Past Medical History Past Medical History: Atrial Fibrillation, Chest Pain / Angina, Hearing Disorder / Deafness, Hyperlipidemia, Hypertension, Osteoarthritis (OA), Prostate Disorder Additional Past Medical History / Comment(s): kidney stones, bph, undiagnosed apnea History of Any Multi-Drug Resistant Organisms: None Reported Past Surgical History: Hernia Repair, Orthopedic Surgery Additional Past Surgical History / Comment(s): lump removed from throat, bilateral knee replacement, right hip replacement Past Anesthesia/Blood Transfusion Reactions: No Reported Reaction Past Psychological History: No Psychological Hx Reported Smoking Status: Never smoker Past Alcohol Use History: None Reported Additional Past Alcohol Use History / Comment(s): tall beer, and mix drink daily Past Drug Use History: None Reported - Past Family History Father History Unknown: Yes Family Medical History: Cancer, Myocardial Infarction ([place]) Additional Family Medical History / Comment(s): prostate cancer Mother History Unknown: Yes Family Medical History: Cancer Brother(s) History Unknown: Yes Family Medical History: Cancer Additional Family Medical History / Comment(s): prostate Sister(s) History Unknown: Yes Family Medical History: Cancer Additional Family Medical History / Comment(s): ovarian, throat/neck cancer Daughter(s) History Unknown: Yes Family Medical History: Thyroid Disorder Additional Family Medical History / Comment(s): hypothyroid Medications and Allergies Home Medications Medication Instructions Recorded Confirmed Type Simvastatin 20 mg PO HS 02/21/15 05/30/19 History Warfarin [Coumadin] 5 mg PO HS 04/06/17 05/30/19 History Metoprolol Tartrate [Lopressor] 50 mg PO HS 05/19/17 05/30/19 History Nitroglycerin Sl Tabs [Nitrostat] 0.4 mg SUBLINGUAL Q5M PRN #30 tab 03/04/19 05/30/19 Rx Acetaminophen Tab [Tylenol] 500 - 1,000 mg PO Q6H PRN 05/30/19 05/30/19 History Doxazosin [Cardura] 4 mg PO HS 05/30/19 05/30/19 History Metoprolol Tartrate [Lopressor] 25 mg PO QAM 05/30/19 05/30/19 History Allergies Allergy/AdvReac Type Severity Reaction Status Date / Time oxytetracycline Allergy Rash/Hives Verified 05/30/19 16:46 [From Terramycin] oxytetracycline HCl Allergy Rash/Hives Verified 05/30/19 16:46 [From Terramycin] Penicillins Allergy Rash/Hives Verified 05/30/19 16:46 Sulfa (Sulfonamide Allergy Rash/Hives Verified 05/30/19 16:46 Antibiotics) ciprofloxacin [From Cipro] AdvReac Abdominal Verified 05/30/19 16:46 Pain, NAUSEA Physical Exam Vitals: Vital Signs Temp Pulse Pulse Resp BP BP Pulse Ox 05/31/19 07:00 96 17 99/64 95 05/31/19 06:00 80 16 113/80 93 L 05/31/19 05:00 96 18 115/82 94 L 05/31/19 04:00 98.3 F 82 97 19 107/81 96 05/31/19 03:00 98 18 120/93 92 L 05/31/19 02:50 84 20 120/93 93 L 05/31/19 02:40 100 15 113/85 95 05/31/19 02:30 82 24 114/69 93 L 05/31/19 02:20 79 17 114/69 93 L 05/31/19 02:10 86 13 105/85 90 L 05/31/19 02:00 92 18 106/75 93 L 05/31/19 01:50 82 6 L 106/75 93 L 05/31/19 01:40 64 18 98/68 92 L 05/31/19 01:30 84 23 113/78 96 05/31/19 01:20 86 12 113/78 89 L 05/31/19 01:10 98 23 129/93 94 L 05/31/19 01:00 98.3 F 83 31 H 113/77 94 L 05/31/19 00:35 97 18 74/54 98 05/31/19 00:21 76 20 64/40 96 05/31/19 00:20 80 20 63/41 98 05/31/19 00:00 97.4 F L 83 16 99/64 97 05/30/19 22:10 65 05/30/19 22:00 80 05/30/19 21:50 77 05/30/19 20:00 97.5 F L 85 18 117/59 98 05/30/19 17:21 97.7 F 87 18 99/73 95 05/30/19 16:29 98.2 F 05/30/19 16:00 73 18 95/74 99 05/30/19 14:33 66 19 116/70 94 L 05/30/19 14:02 97.3 F L 77 18 106/75 99 Intake and Output 05/30/19 05/31/19 05/31/19 22:59 06:59 14:59 Intake Total 240 400 80 Output Total 150 Balance 240 250 80 Intake: Intake, IV Titration 400 80 Amount Sodium Chloride 0.9% 1, 400 80 000 ml @ 80 mls/hr IV . [id number] [facility] Rx#:[id number] Oral 240 Output: Urine 150 Other: Voiding Method Toilet Urinal # Voids 1 - Constitutional General appearance: no acute distress - Respiratory Respiratory: bilateral: diminished - Cardiovascular Rhythm: irregularly irregular Heart sounds: normal: S1, S2 Abnormal Heart Sounds: systolic murmur Results 05/31/19 01:24 05/31/19 04:24 Cardiac Enzymes 05/30/19 05/30/19 Range/Units 14:30 14:30 AST 18 (17-59) U/L Troponin I <0.012 (0.000-0.034) ng/mL Coagulation 05/30/19 05/31/19 05/31/19 Range/Units 14:30 01:24 04:24 PT 42.8 H 40.5 H 44.0 H (9.0-12.0) sec APTT 44.3 H (22.0-30.0) sec CBC 05/30/19 05/31/19 Range/Units 14:30 01:24 WBC 7.9 7.0 (3.8-10.6) k/uL RBC 4.84 4.03 L (4.30-5.90) m/uL Hgb 14.6 12.1 L (13.0-17.5) gm/dL Hct 46.2 38.8 L (39.0-53.0) % Plt Count 211 174 (150-450) k/uL Comprehensive Metabolic Panel 05/30/19 05/31/19 05/31/19 Range/Units 14:30 01:29 04:24 Sodium 142 140 140 (137-145) mmol/L Potassium 4.6 4.2 4.4 (3.5-5.1) mmol/L Chloride 111 H 110 H 111 H (98-107) mmol/L Carbon Dioxide 22 25 25 (22-30) mmol/L BUN 19 21 H 19 (9-20) mg/dL Creatinine 1.29 H 1.31 H 1.16 (0.66-1.25) mg/dL Glucose 111 H 107 H 109 H (74-99) mg/dL Calcium 9.1 8.3 L 8.4 (8.4-10.2) mg/dL AST 18 (17-59) U/L ALT 20 L (21-72) U/L Alkaline Phosphatase 61 (38-126) U/L Total Protein 6.5 (6.3-8.2) g/dL Albumin 3.7 (3.5-5.0) g/dL Current Medications Generic Name Dose Route Start Last Admin Trade Name Freq PRN Reason Stop Dose Admin Acetaminophen 1,000 mg 05/30/19 17:18 05/31/19 02:40 Tylenol Tab PO 1,000 mg Q6H PRN Administration Fever and/ or Mild Pain Acetaminophen/Codeine Phosphate 1 each 05/30/19 20:05 05/31/19 04:55 Tylenol #3 PO 1 each Q6HR PRN Administration Pain Atorvastatin Calcium 10 mg 05/30/19 21:00 05/30/19 20:09 Lipitor PO 10 mg HS MAGGIE Administration Sodium Chloride 1,000 mls @ 80 mls/hr 05/30/19 16:15 05/31/19 04:58 Saline 0.9% IV 80 mls/hr .[id number] MAGGIE Administration Naloxone HCl 0.2 mg 05/30/19 16:01 Narcan IV Q2M PRN Opioid Reversal Pantoprazole Sodium 40 mg 05/31/19 07:30 05/31/19 06:53 Protonix PO 40 mg [id number] MAGGIE Administration Intake and Output 05/30/19 05/31/19 05/31/19 22:59 06:59 14:59 Intake Total 240 400 80 Output Total 150 Balance 240 250 80 Intake: Intake, IV Titration 400 80 Amount Sodium Chloride 0.9% 1, 400 80 000 ml @ 80 mls/hr IV . [id number] MAGGIE Rx#:[id number] Oral 240 Output: Urine 150 Other: Voiding Method Toilet Urinal # Voids 1 05/31/19 01:24 05/31/19 04:24 Assessment and Plan Assessment: Assessment #1 severe left arm edema/bruises #2 long-standing persistent atrial fibrillation on oral anticoagulation was Coumadin. The heart rate is controlled #3 hypotension which probably vasovagal related to the pain in the left arm. Pl ease note that the blood pressure has improved after holding the metoprolol #4 known mild nonobstructive coronary artery disease #5 mild cardiomyopathy #6 moderate mitral regurgitation Plan #1 the patient is in process of being seen by orthopedic surgery #2 continue holding the Coumadin until the patient be seen by surgery. Subsequently he needs to be restarted on oral anticoagulation was safe from the surgical standpoint overview #3 restart the patient on small dose of metoprolol 12.5 mg by mouth twice a day #4 follow-up with the patient
[2019-05-31] MEDS: METOPROLOL TARTRATE 12.5 MG TAB PO SCH ×2 (08:56→20:16)
--- NOTE | 2019-05-31 09:02 | P.CNOR ---
<NickjulienAlejandra Elgin - Last Filed: 05/31/19 10:28> History of Present Illness - [facility] Consult date: 05/31/19 Consult reason: other (Left arm swelling and bruising) History of present illness: The patient is a pleasant 73-year-old male who presented to the emergency department yesterday due to hypotension. Patient states that 2 days ago he was reaching for something on the floor and felt a pop in his left arm. He went to urgent care yesterday due to pain and swelling in the left upper arm and he was found to be hypotensive. He is admitted for further evaluation by internal medicine and cardiology. Orthopedics is consulted for a possible biceps tendon tear. Today, the patient was evaluated while in ICU. He appears comfortable at rest b ut has pain with any motion of the arm and upon palpation. His INR is 4.6 and his Coumadin is on hold at this time. He denies other bleeding. Review of Systems Constitutional: Denies chills, Denies fever Cardiovascular: Denies chest pain, Denies shortness of breath Respiratory: Denies cough Gastrointestinal: Denies abdominal pain, Denies diarrhea, Denies nausea, Denies vomiting Musculoskeletal: left: elbow pain (Left mid-upper arm pain), elbow swelling Past Medical History Past Medical History: Atrial Fibrillation, Chest Pain / Angina, Hearing Disorder / Deafness, Hyperlipidemia, Hypertension, Osteoarthritis (OA), Prostate Disorder Additional Past Medical History / Comment(s): kidney stones, bph, undiagnosed apnea History of Any Multi-Drug Resistant Organisms: None Reported Past Surgical History: Hernia Repair, Orthopedic Surgery Additional Past Surgical History / Comment(s): lump removed from throat, delroy ateral knee replacement, right hip replacement Past Anesthesia/Blood Transfusion Reactions: No Reported Reaction Past Psychological History: No Psychological Hx Reported Smoking Status: Never smoker Past Alcohol Use History: None Reported Additional Past Alcohol Use History / Comment(s): tall beer, and mix drink daily Past Drug Use History: None Reported - Past Family History Father History Unknown: Yes Family Medical History: Cancer, Myocardial Infarction ([place]) Additional Family Medical History / Comment(s): prostate cancer Mother History Unknown: Yes Family Medical History: Cancer Brother(s) History Unknown: Yes Family Medical History: Cancer Additional Family Medical History / Comment(s): prostate Sister(s) History Unknown: Yes Family Medical History: Cancer Additional Family Medical History / Comment(s): ovarian, throat/neck cancer Daughter(s) History Unknown: Yes Family Medical History: Thyroid Disorder Additional Family Medical History / Comment(s): hypothyroid Medications and Allergies Home Medications Medication Instructions Recorded Confirmed Type Simvastatin 20 mg PO HS 02/21/15 05/30/19 History Warfarin [Coumadin] 5 mg PO HS 04/06/17 05/30/19 History Metoprolol Tartrate [Lopressor] 50 mg PO HS 05/19/17 05/30/19 History Nitroglycerin Sl Tabs [Nitrostat] 0.4 mg SUBLINGUAL Q5M PRN #30 tab 03/04/19 05/30/19 Rx Acetaminophen Tab [Tylenol] 500 - 1,000 mg PO Q6H PRN 05/30/19 05/30/19 History Doxazosin [Cardura] 4 mg PO HS 05/30/19 05/30/19 History Metoprolol Tartrate [Lopressor] 25 mg PO QAM 05/30/19 05/30/19 History Allergies Allergy/AdvReac Type Severity Reaction Status Date / Time oxytetracycline Allergy Rash/Hives Verified 05/30/19 16:46 [From Terramycin] oxytetracycline HCl Allergy Rash/Hives Verified 05/30/19 16:46 [From Terramycin] Penicillins Allergy Rash/Hives Verified 05/30/19 16:46 Sulfa (Sulfonamide Allergy Rash/Hives Verified 05/30/19 16:46 Antibiotics) ciprofloxacin [From Cipro] AdvReac Abdominal Verified 05/30/19 16:46 Pain, NAUSEA Physical Examination The patient is a pleasant 73-year-old male who is in no acute distress. He is alert and oriented 3. Exam of the left arm reveals extensive bruising worse on the anterior aspect of the arm. There is moderate swelling to the upper arm as well. Pain to palpation most severe to the muscle belly of the biceps. The distal biceps tendon appears to be intact. Good shoulder, elbow, wrist, and hand range of motion with pain as expected. Neurological status is intact. Hand is warm and well perfused. Circulatory status intact. Results Two views of the left humerus dated 05/30/2019 revealed no acute fractures or dislocations seen. - Labs Labs: Abnormal Lab Results - Last 24 Hours (Table) 1105/30/19 05/30/19 Range/Units 14:30 14:30 14:30 RBC (4.30-5.90) m/uL Hgb (13.0-17.5) gm/dL Hct (39.0-53.0) % Lymphocytes # 0.8 L (1.0-4.8) k/uL PT 42.8 H (9.0-12.0) sec INR 4.5 H (<1.2) APTT 44.3 H (22.0-30.0) sec Chloride 111 H (98-107) mmol/L BUN (9-20) mg/dL Creatinine 1.29 H (0.66-1.25) mg/dL Glucose 111 H (74-99) mg/dL POC Glucose (mg/dL) (75-99) mg/dL Calcium (8.4-10.2) mg/dL ALT 20 L (21-72) U/L 05/31/19 05/31/19 05/31/19 Range/Units 00:53 01:24 01:24 RBC 4.03 L (4.30-5.90) m/uL Hgb 12.1 L (13.0-17.5) gm/dL Hct 38.8 L (39.0-53.0) % Lymphocytes # 0.9 L (1.0-4.8) k/uL PT 40.5 H (9.0-12.0) sec INR 4.2 H (<1.2) APTT (22.0-30.0) sec Chloride (98-107) mmol/L BUN (9-20) mg/dL Creatinine (0.66-1.25) mg/dL Glucose (74-99) mg/dL POC Glucose (mg/dL) 104 H (75-99) mg/dL Calcium (8.4-10.2) mg/dL ALT (21-72) U/L 05/31/19 05/31/19 05/31/19 Range/Units 01:29 04:24 04:24 RBC (4.30-5.90) m/uL Hgb (13.0-17.5) gm/dL Hct (39.0-53.0) % Lymphocytes # (1.0-4.8) k/uL PT 44.0 H (9.0-12.0) sec INR 4.6 H (<1.2) APTT (22.0-30.0) sec Chloride 110 H 111 H (98-107) mmol/L BUN 21 H (9-20) mg/dL Creatinine 1.31 H (0.66-1.25) mg/dL Glucose 107 H 109 H (74-99) mg/dL POC Glucose (mg/dL) (75-99) mg/dL Calcium 8.3 L (8.4-10.2) mg/dL ALT (21-72) U/L H & H 05/30/19 05/31/19 Range/Units 14:30 01:24 Hgb 14.6 12.1 L (13.0-17.5) gm/dL Hct 46.2 38.8 L (39.0-53.0) % Coagulation 05/30/19 05/31/19 05/31/19 Range/Units 14:30 01:24 04:24 INR 4.5 H 4.2 H 4.6 H (<1.2) Result Diagrams: 05/31/19 01:24 05/31/19 04:24 Assessment and Plan (1) Hypotension Current Visit: Yes Status: Acute Code(s): I95.9 - HYPOTENSION, UNSPECIFIED SNOMED Code(s): 24010360 (2) Left upper arm pain Current Visit: Yes Status: Acute Code(s): M79.622 - PAIN IN LEFT UPPER ARM SNOMED Code(s): 941308776212382 (3) Afib Current Visit: No Status: Acute Code(s): I48.91 - UNSPECIFIED ATRIAL FIBRILLATION SNOMED Code(s): 88294437 (4) Hyperlipemia Current Visit: No Status: Acute Code(s): E78.5 - HYPERLIPIDEMIA, UNSPECIFIED SNOMED Code(s): 18265259 (5) Obesity Current Visit: No Status: Acute Code(s): E66.9 - OBESITY, UNSPECIFIED SNOMED Code(s): 853456367 Plan: The clinical and x-ray findings were discussed with the patient and the jose britton's at the bedside. The case was also discussed at length with Dr. Holt. No surgical intervention is planned at this time. There is concern for a proximal biceps tear which is usually treated non-operatively. Since surgery is not considered at this time, no further imaging is recommended. Continue comfort measures with the arm including pain medications as needed, rest, and heat. An arm sling can provide support if needed. Ok to resume Coumadin from an orthopedic standpoint. Continue treatment and monitoring for hypotension by internal medicine and cardiology. Further recommendations to follow after Dr. Holt evaluates the patient this afternoon. <Van Holt - Last Filed: 05/31/19 19:25> Results - Labs Labs: Abnormal Lab Results - Last 24 Hours (Table) 05/31/19 05/31/19 05/31/19 Range/Units 00:53 01:24 01:24 RBC 4.03 L (4.30-5.90) m/uL Hgb 12.1 L (13.0-17.5) gm/dL Hct 38.8 L (39.0-53.0) % Lymphocytes # 0.9 L (1.0-4.8) k/uL PT 40.5 H (9.0-12.0) sec INR 4.2 H (<1.2) Chloride (98-107) mmol/L BUN (9-20) mg/dL Creatinine (0.66-1.25) mg/dL Glucose (74-99) mg/dL POC Glucose (mg/dL) 104 H (75-99) mg/dL Calcium (8.4-10.2) mg/dL 05/31/19 05/31/19 05/31/19 Range/Units 01:29 04:24 04:24 RBC (4.30-5.90) m/uL Hgb (13.0-17.5) gm/dL Hct (39.0-53.0) % Lymphocytes # (1.0-4.8) k/uL PT 44.0 H (9.0-12.0) sec INR 4.6 H (<1.2) Chloride 110 H 111 H (98-107) mmol/L BUN 21 H (9-20) mg/dL Creatinine 1.31 H (0.66-1.25) mg/dL Glucose 107 H 109 H (74-99) mg/dL POC Glucose (mg/dL) (75-99) mg/dL Calcium 8.3 L (8.4-10.2) mg/dL H & H 05/30/19 05/31/19 Range/Units 14:30 01:24 Hgb 14.6 12.1 L (13.0-17.5) gm/dL Hct 46.2 38.8 L (39.0-53.0) % Coagulation 05/30/19 05/31/19 05/31/19 Range/Units 14:30 01:24 04:24 INR 4.5 H 4.2 H 4.6 H (<1.2) Result Diagrams: 05/31/19 01:24 05/31/19 04:24 Assessment and Plan Plan: Discussed with FLOYD Beard and agree with above. Patient was also subsequently seen and examined by me. S: The patient states that he felt and heard a sharp pop when reaching down to pick something up off the floor. He states that the pain is currently well controlled. O: Extensive edema and ecchymosis throughout the arm. Visible deformity/asymmetry of the biceps muscle belly and tenderness to palpation. The tendon is not as well-defined as it is on the right side, likely due to the swelling (distally or at the bicipital groove). A: 1. Likely biceps tendon rupture 2. Supratherapeutic INR 3. Hypotension P: I reviewed the clinical findings in detail with the patient. We discussed the pertinent anatomy and explained the proximal biceps tendons do not require treatment. Even if this were a distal biceps rupture, I would not recommend surgical repair. We discussed the usual healing course for injuries of this nature. I recommended symptomatic treatment with warm and/or cold compresses, range of motion and activity as tolerated. Questions were invited and answered. The patient expressed understanding and was in agreement with this plan. Thank you for allowing us to participate in the care of this patient. Van Holt D.O. [facility]
--- NOTE | 2019-05-31 11:04 | P.CNPUL ---
History of Present Illness Consult date: 05/31/19 Requesting physician: Rony Haley Reason for consult: other Chief complaint: Near syncope History of present illness: This is a very pleasant 73-year-old gentleman with a known history of atrial fibrillation anticoagulated with warfarin, hyperlipidemia, hypertension, osteoarthritis, nephrolithiasis. He is on metoprolol for his atrial fib and hypertension. He was recently started on Cardura for his nephrolithiasis. 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 Yesterday morning he had increasing swelling and hematoma formation and was seen in the urgent care center. While he was there he had a near syncopal episode with dizziness and lightheadedness and was found to be quite hypotensive. He presented here to the emergency room for the same. Initial blood pressure 99/73 and he did dip into the 60s and 70s systolic early this morning, he was also having dizziness and an A team was called. He was then transferred from the observation unit to the intensive care unit. 1 L of fluid were given. He did not require any pressor support. Cardura was discontinued. Lopressor dose decreased to 12.5 twice a day. He has 0.9 normal saline at 80 MLS per hour. He is seen today in consultation in the intensive care unit. He is awake and alert in no acute distress. Denies any current dizziness or lightheadedness. No chest pain or palpitations. He is in atrial fibrillation with controlled ventricular rate. Maintaining O2 saturations in the mid 90s on room air. Lungs are clear. Chest x-ray shows no acute pulmonary process Current blood pressure 107/77 with a mean of 87. He is afebrile. Left upper extremity is quite edematous and ecchymotic. X-ray of the left upper extremity revealed no fracture. Noted soft tissue swelling. Orthopedics has been consulted. White count 7.0. Hemoglobin 12.1. INR 4.6. Creatinine 1.16. Review of Systems REVIEW OF SYSTEMS: CONSTITUTIONAL: Denies any recent significant weight loss or weight gain. EYES: Denies change in vision. EARS, NOSE, MOUTH, THROAT: Denies headaches, denies sore throat. CARDIOVASCULAR: Positive for dizziness lightheadedness near syncopal episodes. Denies chest pain, palpitations . RESPIRATORY: Denies shortness of breath, cough, congestion or hemoptysis. GASTROINTESTINAL: Denies change in appetite, denies abdominal pain GENITOURINARY: Denies hematuria, denies infections. MUSKULOSKELETAL: Pain and swelling of left upper extremity INTEGUMENTARY: Denies rash, denies eczema. NEUROLOGICAL: Denies recent memory loss, no recent seizure activity. PSYCHIATRIC: Denies anxiety, denies depression. HEMATOLOGIC/LYMPHATIC: Denies anemia, denies enlarged lymph nodes. Past Medical History Past Medical History: Atrial Fibrillation, Chest Pain / Angina, Hearing Disorder / Deafness, Hyperlipidemia, Hypertension, Osteoarthritis (OA), Prostate Disorder Additional Past Medical History / Comment(s): kidney stones, bph, undiagnosed apnea History of Any Multi-Drug Resistant Organisms: None Reported Past Surgical History: Hernia Repair, Orthopedic Surgery Additional Past Surgical History / Comment(s): lump removed from throat, bilateral knee replacement, right hip replacement Past Anesthesia/Blood Transfusion Reactions: No Reported Reaction Past Psychological History: No Psychological Hx Reported Smoking Status: Never smoker Past Alcohol Use History: None Reported Additional Past Alcohol Use History / Comment(s): tall beer, and mix drink daily Past Drug Use History: None Reported - Past Family History Father History Unknown: Yes Family Medical History: Cancer, Myocardial Infarction ([place]) Additional Family Medical History / Comment(s): prostate cancer Mother History Unknown: Yes Family Medical History: Cancer Brother(s) History Unknown: Yes Family Medical History: Cancer Additional Family Medical History / Comment(s): prostate Sister(s) History Unknown: Yes Family Medical History: Cancer Additional Family Medical History / Comment(s): ovarian, throat/neck cancer Daughter(s) History Unknown: Yes Family Medical History: Thyroid Disorder Additional Family Medical History / Comment(s): hypothyroid Medications and Allergies Home Medications Medication Instructions Recorded Confirmed Type Simvastatin 20 mg PO HS 02/21/15 05/30/19 History Warfarin [Coumadin] 5 mg PO HS 04/06/17 05/30/19 History Metoprolol Tartrate [Lopressor] 50 mg PO HS 05/19/17 05/30/19 History Nitroglycerin Sl Tabs [Nitrostat] 0.4 mg SUBLINGUAL Q5M PRN #30 tab 03/04/19 05/30/19 Rx Acetaminophen Tab [Tylenol] 500 - 1,000 mg PO Q6H PRN 05/30/19 05/30/19 History Doxazosin [Cardura] 4 mg PO HS 05/30/19 05/30/19 History Metoprolol Tartrate [Lopressor] 25 mg PO QAM 05/30/19 05/30/19 History Allergies Allergy/AdvReac Type Severity Reaction Status Date / Time oxytetracycline Allergy Rash/Hives Verified 05/30/19 16:46 [From Terramycin] oxytetracycline HCl Allergy Rash/Hives Verified 05/30/19 16:46 [From Terramycin] Penicillins Allergy Rash/Hives Verified 05/30/19 16:46 Sulfa (Sulfonamide Allergy Rash/Hives Verified 05/30/19 16:46 Antibiotics) ciprofloxacin [From Cipro] AdvReac Abdominal Verified 05/30/19 16:46 Pain, NAUSEA Physical Exam Vitals: Vital Signs Temp Pulse Pulse Resp BP BP Pulse Ox 05/31/19 09:00 90 14 117/79 96 05/31/19 08:00 98.4 F 76 97 22 107/77 96 05/31/19 07:00 96 17 99/64 95 05/31/19 06:00 80 16 113/80 93 L 05/31/19 05:00 96 18 115/82 94 L 05/31/19 04:00 98.3 F 82 97 19 107/81 96 05/31/19 03:00 98 18 120/93 92 L 05/31/19 02:50 84 20 120/93 93 L 05/31/19 02:40 100 15 113/85 95 05/31/19 02:30 82 24 114/69 93 L 05/31/19 02:20 79 17 114/69 93 L 05/31/19 02:10 86 13 105/85 90 L 05/31/19 02:00 92 18 106/75 93 L 05/31/19 01:50 82 6 L 106/75 93 L 05/31/19 01:40 64 18 98/68 92 L 05/31/19 01:30 84 23 113/78 96 05/31/19 01:20 86 12 113/78 89 L 05/31/19 01:10 98 23 129/93 94 L 05/31/19 01:00 98.3 F 83 31 H 113/77 94 L 05/31/19 00:35 97 18 74/54 98 05/31/19 00:21 76 20 64/40 96 05/31/19 00:20 80 20 63/41 98 05/31/19 00:00 97.4 F L 83 16 99/64 97 05/30/19 22:10 65 05/30/19 22:00 80 05/30/19 21:50 77 05/30/19 20:00 97.5 F L 85 18 117/59 98 05/30/19 17:21 97.7 F 87 18 99/73 95 05/30/19 16:29 98.2 F 05/30/19 16:00 73 18 95/74 99 05/30/19 14:33 66 19 116/70 94 L 05/30/19 14:02 97.3 F L 77 18 106/75 99 Intake and Output 05/30/19 05/31/19 05/31/19 22:59 06:59 14:59 Intake Total 240 400 240 Output Total 150 Balance 240 250 240 Intake: Intake, IV Titration 400 240 Amount Sodium Chloride 0.9% 1, 400 240 000 ml @ 80 mls/hr IV . [id number] Rx#:[id number] Oral 240 Output: Urine 150 Other: Voiding Method Toilet Urinal Urinal # Voids 1 GENERAL EXAM: Alert, pleasant obese 73-year-old gentleman, comfortable in no apparent distress. On room air HEAD: Normocephalic. EYES: Normal reaction of pupils, equal size. NOSE: Clear with pink turbinates. THROAT: No erythema or exudates. NECK: No masses, no JVD. CHEST: No chest wall deformity. LUNGS: Equal air entry with no crackles, wheeze, rhonchi or dullness. CVS: S1 and S2 normal with no audible murmur, irregular rhythm. ABDOMEN: No hepatosplenomegaly, normal bowel sounds, no guarding or rigidity. SPINE: No scoliosis or deformity SKIN: Ecchymosis of the left upper extremity CENTRAL NERVOUS SYSTEM: No focal deficits, tone is normal in all 4 extremities. EXTREMITIES: Edema and ecchymosis of the left upper extremity. No clubbing, no cyanosis. Peripheral pulses are intact. Results - Laboratory Findings CBC and BMP: 05/31/19 01:24 05/31/19 04:24 PT/INR, D-dimer PT 44.0 sec (9.0-12.0) H 05/31/19 04:24 INR 4.6 (<1.2) H 05/31/19 04:24 Abnormal lab findings: Abnormal Labs 05/30/19 05/30/19 05/30/19 14:30 14:30 14:30 RBC Hgb Hct Lymphocytes # 0.8 L PT 42.8 H INR 4.5 H APTT 44.3 H Chloride 111 H BUN Creatinine 1.29 H Glucose 111 H POC Glucose (mg/dL) Calcium ALT 20 L 05/31/19 05/31/19 05/31/19 00:53 01:24 01:24 RBC 4.03 L Hgb 12.1 L Hct 38.8 L Lymphocytes # 0.9 L PT 40.5 H INR 4.2 H APTT Chloride BUN Creatinine Glucose POC Glucose (mg/dL) 104 H Calcium ALT 05/31/19 05/31/19 05/31/19 01:29 04:24 04:24 RBC Hgb Hct Lymphocytes # PT 44.0 H INR 4.6 H APTT Chloride 110 H 111 H BUN 21 H Creatinine 1.31 H Glucose 107 H 109 H POC Glucose (mg/dL) Calcium 8.3 L ALT - Diagnostic Findings Chest x-ray: image reviewed (No acute pulmonary process) Assessment and Plan Assessment: 1 Hypotension with near syncope secondary to beta blockers and alpha adrenergic blockers and possible vasovagal response due to pain of the left upper extremity. 2 Recent suspected left bicep tendon rupture with ecchymosis and edema of the left upper extremity. No surgical intervention planned by orthopedics. 3 Atrial fibrillation, anticoagulated with warfarin, supra therapeutic. Current INR 4.6. 4 Hypertension, history of. 5 Hyperlipidemia. 6 Osteoarthritis with previous bilateral knee replacements and right hip replacement. 7 Nephrolithiasis. Plan: The patient was seen and evaluated by Dr. Dorsey. He is currently stable from the pulmonary and critical care standpoint. He did not require any pressor support. Cardura discontinue. Beta blockers decreased. Hold warfarin. Continue to monitor blood pressure. Could be transferred out of the intensive care unit to the selective care unit later today. I, the cosigning physician, performed a history & physical examination of the patient. Lungs sounds are clear. Maintaining good O2 saturations in the 90s on room air. I discussed the assessment and plan of care with my nurse practitioner, Mayuri Padilla. I attest to the above note as dictated by her. Time with Patient: Greater than 30
--- NOTE | 2019-05-31 16:22 | P.PN ---
Subjective Progress Note Date: 05/31/19 Principal diagnosis: Hypotension/ Near syncope Suspected left bicep tendon rupture Atrial fibrillation/coagulopathy secondary to Coumadin 71-year-old gentleman with known history of atrial fibrillation and is in metoprolol came in with hypotension; Patient reports while reaching out to for his trousers had a snap in the left elbow appears to have bicipital tendon rupture. Patient on Coumadin INR is 4.5 he appears to have some hematoma at the bicipital tendon area. A. fib rate controlled with right bundle branch block with chest x-ray soft tissue edema and chronic rib fractures. His present creatinine is 1.1 and better than his baseline. INR is supratherapeutic at 4.5 05/31/2019 Patient is seen and evaluated in the intensive care unit with family members at bedside; according to stated been waiting for orthopedic surgeon for further recommendations. Patient remains in atrial fibrillation with controlled ventricular rate. Maintaining O2 saturations in the mid 90s on room air. Lungs are clear. Chest x-ray shows no acute pulmonary process Current blood pressure 107/77 with a mean of 87. He is afebrile. Left upper extremity is quite edematous and ecchymotic. X-ray of the left upper extremity revealed no fracture. Noted soft tissue swelling. Orthopedics has been consulted. White count 7.0. Hemoglobin 12.1. INR 4.6. Creatinine 1.16. Patient has been evaluated by orthopedic surgery and because of proximal location of biceps tear no surgical intervention is recommended; we will continue to monitor H&H closely and symptomatic treatment with pain control rest, elevation and heat to the area; patient will be provided by arm sling by orthopedic service; patient has been cleared by orthopedic to resume Coumadin; patient's INR is supratherapeutic and playful continue to monitor PT/INR daily and restart Coumadin once INR is less than 3. Objective - Vital Signs Vital signs: Vital Signs Temp 98.4 F 05/31/19 08:00 Pulse 90 05/31/19 09:00 Resp 14 05/31/19 09:00 BP 117/79 05/31/19 09:00 Pulse Ox 96 05/31/19 09:00 Intake & Output 05/30/19 05/31/19 05/31/19 18:59 06:59 18:59 Intake Total 240 400 240 Output Total 150 Balance 240 250 240 Weight 149.685 kg Intake: Intake, IV Titration 400 240 Amount Sodium Chloride 0.9% 1, 400 240 000 ml @ 80 mls/hr IV . [id number] [facility] Rx#:[id number] Oral 240 Output: Urine 150 Other: Voiding Method Toilet Urinal Urinal # Voids 1 - Exam GENERAL: The patient is alert and oriented x3, not in any acute distress. Well developed, well nourished. Obese HEENT: Pupils are round and equally reacting to light. EOMI. No scleral icterus. No conjunctival pallor. Normocephalic, atraumatic. No pharyngeal erythema. No thyromegaly. CARDIOVASCULAR: S1 and S2 present. No murmurs, rubs, or gallops. PULMONARY: Chest is clear to auscultation, no wheezing or crackles. ABDOMEN: Soft, nontender, nondistended, normoactive bowel sounds. No palpable organomegaly. MUSCULOSKELETAL: No joint swelling or deformity. Anticoagulation has swelling in the left upper arm and antecubital area appears to have bulge in the lower biceps area consistent with proximal tendon rupture of the biceps patient's Abduction about 90 is restricted because of pain and active motion although the pain is minimal. Patient may have a hematoma in that area as well. EXTREMITIES: No cyanosis, clubbing, or pedal edema. NEUROLOGICAL: Gross neurological examination did not reveal any focal deficits. SKIN: No rashes. - Labs CBC & Chem 7: 05/31/19 01:24 05/31/19 04:24 Labs: Abnormal Lab Results - Last 24 Hours (Table) 05/30/19 05/30/19 05/30/19 Range/Units 14:30 14:30 14:30 RBC (4.30-5.90) m/uL Hgb (13.0-17.5) gm/dL Hct (39.0-53.0) % Lymphocytes # 0.8 L (1.0-4.8) k/uL PT 42.8 H (9.0-12.0) sec INR 4.5 H (<1.2) APTT 44.3 H (22.0-30.0) sec Chloride 111 H (98-107) mmol/L BUN (9-20) mg/dL Creatinine 1.29 H (0.66-1.25) mg/dL Glucose 111 H (74-99) mg/dL POC Glucose (mg/dL) (75-99) mg/dL Calcium (8.4-10.2) mg/dL ALT 20 L (21-72) U/L 05/31/19 05/31/19 05/31/19 Range/Units 00:53 01:24 01:24 RBC 4.03 L (4.30-5.90) m/uL Hgb 12.1 L (13.0-17.5) gm/dL Hct 38.8 L (39.0-53.0) % Lymphocytes # 0.9 L (1.0-4.8) k/uL PT 40.5 H (9.0-12.0) sec INR 4.2 H (<1.2) APTT (22.0-30.0) sec Chloride (98-107) mmol/L BUN (9-20) mg/dL Creatinine (0.66-1.25) mg/dL Glucose (74-99) mg/dL POC Glucose (mg/dL) 104 H (75-99) mg/dL Calcium (8.4-10.2) mg/dL ALT (21-72) U/L 05/31/19 05/31/19 05/31/19 Range/Units 01:29 04:24 04:24 RBC (4.30-5.90) m/uL Hgb (13.0-17.5) gm/dL Hct (39.0-53.0) % Lymphocytes # (1.0-4.8) k/uL PT 44.0 H (9.0-12.0) sec INR 4.6 H (<1.2) APTT (22.0-30.0) sec Chloride 110 H 111 H (98-107) mmol/L BUN 21 H (9-20) mg/dL Creatinine 1.31 H (0.66-1.25) mg/dL Glucose 107 H 109 H (74-99) mg/dL POC Glucose (mg/dL) (75-99) mg/dL Calcium 8.3 L (8.4-10.2) mg/dL ALT (21-72) U/L Assessment and Plan Assessment: -Near syncope or dizziness: Secondary to hypotension may be related to his Cardura that was started recently for his kidney stones. Patient does have atrial fibrillation with monitor him on telemetry will hold off on his metoprolol but may require lower dose of metoprolol. Patient was started and continued on IV fluids -Possible Bicipital tendon rupture with a possible hematoma orthopedic surgery was consulted, patient may have a hematoma that may have led to his LIGHTHEADEDNESS although it lightheadedness was present even before this event -Atrial fibrillation chronic A. fib presently rate controlled anti-coagulation with Coumadin suprapubic and Coumadin possible hematoma off the lleft arm, hold off on Coumadin and repeat INR tomorrow -Nephrolithiasis recent but not presently -Hyperlipidemia -Hypertension
[2019-05-31] MEDS: ATORVASTATIN 10 MG TAB PO SCH (20:16)
[2019-06-01] MEDS: ACETAMINOPHEN TAB 500 MG TAB PO PRN ×2 (02:17→06:41)
[2019-06-01 04:52] LABS: Basophils % (A) 0 %; Eosinophils # (A) 0.2 k/uL (0-0.7); Eosinophils % (A) 3 %; HCT 35.8 % (39.0-53.0); HGB 11.7 gm/dL (13.0-17.5); Lymphocytes # (A) 0.9 k/uL (1.0-4.8); Lymphocytes % (A) 12 %; MCH 31.5 pg (25.0-35.0); MCHC 32.7 g/dL (31.0-37.0); MCV 96.2 fL (80.0-100.0); Mean Platelet Volume 6.8; Monocytes # (A) 0.5 k/uL (0-1.0); Monocytes % (A) 7 %; Neutrophils # (A) 5.2 k/uL (1.3-7.7); Neutrophils % (A) 76 %; Platelet Count 177 k/uL (150-450); RBC 3.72 m/uL (4.30-5.90); RDW 13.9 % (11.5-15.5); WBC 6.8 k/uL (3.8-10.6)
[2019-06-01 04:57] LABS: INR 3.1 (<1.2); Prothrombin Time 29.6 sec (9.0-12.0)
[2019-06-01 05:21] LABS: Calcium 8.4 mg/dL (8.4-10.2); Potassium 4.4 mmol/L (3.5-5.1)
[2019-06-01] MEDS: SODIUM CHLORIDE 0.9% 1,000 ML IV SCH (06:36)
[2019-06-01] MEDS: PANTOPRAZOLE 40 MG TABLET PO SCH (06:36)
[2019-06-01] MEDS: METOPROLOL TARTRATE 12.5 MG TAB PO SCH (07:40)
--- NOTE | 2019-06-01 09:32 | P.PN ---
Subjective Progress Note Date: 06/01/19 This 73-year-old gentleman with history of chronic atrial fibrillation on Coumadin and mild coronary artery disease and also cardiomyopathy who was admitted to the hospital following a ruptured tendon in the left arm associated with some hematoma. Yesterday patient was transferred to intensive care unit because of hypotension. Apparently this responded to IV fluids. Patient denied any chest pain or shortness of breath. Currently, patient is stable with stable blood pressure. No surgeries plan for the left elbow. From orthopedic standpoint, patient could be discharged home. His INR was high on admission and is in the range of about 3.1 today. He is being discharged home without Coumadin. He'll have PT and INR on Monday and the dose could be adjusted to time. His blood pressure is about 120/70 and pulse rate is in the 80s to 90s. Patient was taking Lopressor 50 mg by mouth twice a day. We will discharge patient on 25 mg by mouth twice a day. Follow-up with Dr. Jones on Monday Objective - Vital Signs Vital signs: Vital Signs Temp 97.8 F 06/01/19 08:00 Pulse 91 06/01/19 08:00 Resp 22 06/01/19 08:00 BP 127/78 06/01/19 08:00 Pulse Ox 96 06/01/19 08:00 Intake & Output 05/31/19 06/01/19 06/01/19 18:59 06:59 18:59 Intake Total 960 1040 160 Output Total 75 Balance 960 965 160 Weight 156.9 kg Intake: IV 80 Sodium Chloride 0.9% 1, 80 000 ml @ 80 mls/hr IV . [id number] [facility] Rx#:[id number] Intake, IV Titration 960 1040 80 Amount Sodium Chloride 0.9% 1, 960 720 80 000 ml @ 80 mls/hr IV . [id number] [facility] Rx#:[id number] Sodium Chloride 0.9% 1, 320 000 ml @ 999 mls/hr IV . Q1H1M [facility] Rx#:[id number] Output: Urine 75 Other: Voiding Method Urinal Urinal Urinal # Voids 1 1 0 - Exam GENERAL EXAM: Patient is alert and oriented and doesn't appear to be in any acute distress HEENT: Normocephalic. Normal reaction of pupils, equal size, normal range of extraocular motion. No erythema or exudates in the throat. NECK: No masses, no nuchal rigidity. CHEST: No chest wall deformity. LUNGS: Equal air entry with no crackles or wheeze. HEART: S1 and S2 normal with no audible mumurs or gallops. Regular rhythm, femorals equal on both sides.. ABDOMEN: No hepatosplenomegaly, normal bowel sounds, no guarding or rigidity. SKIN: No rashes CENTRAL NERVOUS SYSTEM: No focal deficits. EXTREMITIES: Hematoma and ecchymosis involving the left elbow - Labs CBC & Chem 7: 06/01/19 04:30 06/01/19 04:30 Labs: Abnormal Lab Results - Last 24 Hours (Table) 06/01/19 06/01/19 06/01/19 Range/Units 04:30 04:30 04:30 RBC 3.72 L (4.30-5.90) m/uL Hgb 11.7 L (13.0-17.5) gm/dL Hct 35.8 L (39.0-53.0) % Lymphocytes # 0.9 L (1.0-4.8) k/uL PT 29.6 H (9.0-12.0) sec INR 3.1 H (<1.2) Chloride 110 H (98-107) mmol/L Glucose 114 H (74-99) mg/dL Assessment and Plan (1) Ruptured tendon Current Visit: Yes Status: Acute Code(s): T14.8XXA - OTHER INJURY OF UNSPECIFIED BODY REGION, INITIAL ENCOUNTER SNOMED Code(s): 193728959 (2) Pre-syncope Current Visit: Yes Status: Acute Code(s): R55 - SYNCOPE AND COLLAPSE SNOMED Code(s): 050209824 (3) Diastolic CHF, acute on chronic Current Visit: No Status: Acute Code(s): I50.33 - ACUTE ON CHRONIC DIASTOLIC (CONGESTIVE) HEART FAILURE SNOMED Code(s): 916703151 (4) HTN (hypertension) Current Visit: No Status: Acute Code(s): I10 - ESSENTIAL (PRIMARY) HYPERTENSION SNOMED Code(s): 24898447 (5) Hyperlipemia Current Visit: No Status: Acute Code(s): E78.5 - HYPERLIPIDEMIA, UNSPECIFIED SNOMED Code(s): 04458687 Plan: Patient is being discharged home. Follow-up with Dr. Jones
[2019-06-01] MEDS: Acetaminophen-Codeine 300-30mg TAB PO PRN (10:22)
--- NOTE | 2019-06-01 12:05 | P.PN ---
Subjective Progress Note Date: 06/01/19 Principal diagnosis: Near syncope and possible proximal biceps tendon tear This is a very pleasant 73-year-old gentleman with a known history of atrial fibrillation anticoagulated with warfarin, hyperlipidemia, hypertension, osteoarthritis, nephrolithiasis. He is on metoprolol for his atrial fib and hypertension. He was recently started on Cardura for his nephrolithiasis. 2 nights ago he had been in the bathroom bending over to [employer] his pants when he felt a pop in his left elbow. Yesterday morning he had increasing swelling and hematoma formation and was seen in the urgent care center. While he was there he had a near syncopal episode with dizziness and lightheadedness and was found to be quite hypotensive. He presented here to the emergency room for the same. Initial blood pressure 99/73 and he did dip into the 60s and 70s systolic early this morning, he was also having dizziness and an A team was called. He was then transferred from the observation unit to the intensive care unit. 1 L of fluid were given. He did not require any pressor support. Cardura was discontinued. Lopressor dose decreased to 12.5 twice a day. He has 0.9 normal saline at 80 MLS per hour. He is seen today in consultation in the intensive care unit. He is awake and alert in no acute distress. Denies any current dizziness or lightheadedness. No chest pain or palpitations. He is in atrial fibrillation with controlled ventricular rate. Maintaining O2 saturations in the mid 90s on room air. Lungs are clear. Chest x-ray shows no acute pulmonary process Current blood pressure 107/77 with a mean of 87. He is afebrile. Left upper extremity is quite edematous and ecchymotic. X-ray of the left upper extremity revealed no fracture. Noted soft tissue swelling. Orthopedics has been consulted. White count 7.0. Hemoglobin 12.1. INR 4.6. Creatinine 1.16. Patient was reevaluated today on 06/01/2019, remains in the ICU, but the patient is doing great. He is asymptomatic, denies any lightheadedness, denies any syncopal episodes, denies any palpitations, and his blood pressure has been stable. Responded 12 most at the fluids and adjustment of his blood pressure medication. Patient was cleared for discharge by multiple consultants, and of course he doesn't have any pulmonary symptoms whatsoever, I have also cleared for discharge as long as he was cleared by cardiology and orthopedics. Labs from today were reviewed and they seem to be basically unremarkable. His renal functioning is improved his elective was are normal CBC is relatively normal hem oglobin is 11.7. Objective - Vital Signs Vital signs: Vital Signs Temp 97.8 F 06/01/19 08:00 Pulse 91 06/01/19 08:00 Resp 22 06/01/19 08:00 BP 127/78 06/01/19 08:00 Pulse Ox 96 06/01/19 08:00 Intake & Output 05/31/19 06/01/19 06/01/19 18:59 06:59 18:59 Intake Total 960 1040 640 Output Total 75 Balance 960 965 640 Weight 156.9 kg Intake: IV 320 Sodium Chloride 0.9% 1, 320 000 ml @ 80 mls/hr IV . [id number] [facility] Rx#:[id number] Intake, IV Titration 960 1040 80 Amount Sodium Chloride 0.9% 1, 960 720 80 000 ml @ 80 mls/hr IV . [id number] [facility] Rx#:[id number] Sodium Chloride 0.9% 1, 320 000 ml @ 999 mls/hr IV . Q1H1M [facility] Rx#:[id number] Oral 240 Output: Urine 75 Other: Voiding Method Urinal Urinal Urinal # Voids 1 1 1 - Exam GENERAL EXAM: Revealed a 73-year-old white male in no distress. HEENT: PERRLA, EOMI, no icterus, moist mucous membranes. CHEST: Symmetrical chest expansion, no chest wall tenderness.. LUNGS: Good breath sound bilaterally no crackles or rhonchi or wheezes. CVS: S1 and S2 normal with no audible murmur, irregular rhythm. ABDOMEN: Obese soft nontender no megaly no rebound positive bowel sounds. SKIN: Ecchymosis of the left upper extremity CENTRAL NERVOUS SYSTEM: Alert and oriented 3 focal neurologic deficits.. EXTREMITIES: Edema and ecchymosis of the left upper extremity. Otherwise unremarkable. - Labs CBC & Chem 7: 06/01/19 04:30 06/01/19 04:30 Labs: Abnormal Lab Results - Last 24 Hours (Table) 06/01/19 06/01/19 06/01/19 Range/Units 04:30 04:30 04:30 RBC 3.72 L (4.30-5.90) m/uL Hgb 11.7 L (13.0-17.5) gm/dL Hct 35.8 L (39.0-53.0) % Lymphocytes # 0.9 L (1.0-4.8) k/uL PT 29.6 H (9.0-12.0) sec INR 3.1 H (<1.2) Chloride 110 H (98-107) mmol/L Glucose 114 H (74-99) mg/dL Assessment and Plan Assessment: 1 Hypotension with near syncope secondary to beta blockers and alpha adrenergic blockers and possible vasovagal response due to pain of the left upper extremity. 2 Recent suspected left bicep tendon tear with ecchymosis and edema of the left upper extremity. No surgical intervention planned by orthopedics. 3 Atrial fibrillation, anticoagulated with warfarin, dose will be adjusted. 4 history of hypertension 5 Hyperlipidemia. 6 Osteoarthritis with previous bilateral knee replacements and right hip replacement. 7 Nephrolithiasis. Recommendation: Continue present supportive care measures, agree with discharge planning, no active pulmonary issues whatsoever today. And no hemodynamic instability since admission. We will sign off, clear for discharge. Time with Patient: Less than 30
[2019-06-01 12:11] VITALS: BP 115/83; PULSE 75; RESP 23; TEMP 98.1
--- NOTE | 2019-06-01 12:56 | P.DS ---
Providers Date of admission: 05/31/19 01:04 Expected date of discharge: 06/01/19 Attending physician: Rony Haley Consults: 05/30/19 16:02 Consult Physician Routine Consulting Provider: Kg Moran Consult Reason/Comments: biceps tendon rupture Do you want consulting provider notified?: Yes Consult Physician Routine Consulting Provider: Neville Jones Consult Reason/Comments: hypotension Do you want consulting provider notified?: Yes 05/31/19 01:20 Consult Physician Routine Consulting Provider: Akshat Dorsey Consult Reason/Comments: ICU management Do you want consulting provider notified?: Already Contacted Primary care physician: Audrey [facility] Course: Near syncope and possible proximal biceps tendon tear This is a very pleasant 73-year-old gentleman with a known history of atrial fibrillation anticoagulated with warfarin, hyperlipidemia, hypertension, osteoarthritis, nephrolithiasis. He is on metoprolol for his atrial fib and hypertension. He was recently started on Cardura for his nephrolithiasis. 2 nights ago he had been in the bathroom bending over to mushroom picker his pants when he felt a pop in his left elbow. Yesterday morning he had increasing swelling and hematoma formation and was seen in the urgent care center. While he was there he had a near syncopal episode with dizziness and lightheadedness and was found to be quite hypotensive. He presented here to the emergency room for the same. Initial blood pressure 99/73 and he did dip into the 60s and 70s systolic early this morning, he was also having dizziness and an A team was called. He was then transferred from the observation unit to the intensive care unit. 1 L of fluid were given. He did not require any pressor support. Cardura was discontinued. Lopressor dose decreased to 12.5 twice a day. He has 0.9 normal saline at 80 MLS per hour. He is seen today in consultation in the intensive care unit. He is awake and alert in no acute distress. Denies any current dizziness or lightheadedness. No chest pain or palpitations. He is in atrial fibrillation with controlled ventricular rate. Maintaining O2 saturations in the mid 90s on room air. Lungs are clear. Chest x-ray shows no acute pulmonary process Current blood pressure 107/77 with a mean of 87. He is afebrile. Left upper extremity is quite edematous and ecchymotic. X-ray of the left upper extremity revealed no fracture. Noted soft tissue swelling. Orthopedics has been consulted. White count 7.0. Hemoglobin 12.1. INR 4.6. Creatinine 1.16. Patient was reevaluated today on 06/01/2019, remains in the ICU, but the patient is doing great. He is asymptomatic, denies any lightheadedness, denies any syncopal episodes, denies any palpitations, and his blood pressure has been stable. Responded 12 most at the fluids and adjustment of his blood pressure medication. Patient was cleared for discharge by multiple consultants, and of course he doesn't have any pulmonary symptoms whatsoever, I have also cleared for discharge as long as he was cleared by cardiology and orthopedics. Labs from today were reviewed and they seem to be basically unremarkable. His renal functioning is improved his elective was are normal CBC is relatively normal hemoglobin is 11.7. cardio saw patient and decreased lopressor; Ortho recommended no Sx and cleared patient to continue coumadin Patient Condition at Discharge: Fair Plan - Discharge Summary Discharge Rx Participant: No New Discharge Prescriptions: Continue Simvastatin 20 mg PO HS Nitroglycerin Sl Tabs [Nitrostat] 0.4 mg SUBLINGUAL Q5M PRN #30 tab PRN Reason: Chest Pain Doxazosin [Cardura] 4 mg PO HS Metoprolol Tartrate [Lopressor] 25 mg PO QAM Acetaminophen Tab [Tylenol] 500 - 1,000 mg PO Q6H PRN PRN Reason: Fever And/ Or Pain Warfarin [Coumadin] 5 mg PO HS #0 Discontinued Metoprolol Tartrate [Lopressor] 50 mg PO HS Discharge Medication List Simvastatin 20 mg PO HS 02/21/15 [History] Nitroglycerin Sl Tabs [Nitrostat] 0.4 mg SUBLINGUAL Q5M PRN #30 tab 03/04/19 [Rx] Acetaminophen Tab [Tylenol] 500 - 1,000 mg PO Q6H PRN 05/30/19 [History] Doxazosin [Cardura] 4 mg PO HS 05/30/19 [History] Metoprolol Tartrate [Lopressor] 25 mg PO QAM 05/30/19 [History] Warfarin [Coumadin] 5 mg PO HS #0 06/01/19 [Rx] Follow up Appointment(s)/Referral(s): Audrey Hall III, MD [Primary Care Provider] - 1-2 days Neville Jones MD [STAFF PHYSICIAN] - 06/03/19 (Keep current appointment with Dr. Jones. Check PT/INR for coumadin. ) Patient Instructions/Handouts: Repairs of the Biceps and Triceps Tendons (DC), Tendon Rupture (ED) Discharge Disposition: HOME SELF-CARE
[2019-06-01] MEDS ORDERED: METOPROLOL TARTRATE 25 MG TAB PO SCH (21:00)
== END 2019-06-01 13:30 | disposition home or self-care (01) | DRG 312 ==
LOC: EC 14:01 → 1SOBS 16:01 → 2SICU 05-31 01:03 → OBSVTOIN 05-31 01:04
PROVIDERS: ADMIT Hospitalist; ATTEND Hospitalist
DX: I95.2 Hypotension due to drugs (principal); I50.33 Acute on chronic diastolic (congestive) heart failure; I42.9 Cardiomyopathy, unspecified; I48.11 Longstanding persistent atrial fibrillation; Z68.42 Body mass index [BMI] 45.0-49.9, adult; I11.0 Hypertensive heart disease with heart failure; I27.20 Pulmonary hypertension, unspecified; I45.10 Unspecified right bundle-branch block; T44.6X5A Adverse effect of alpha-adrenoreceptor antagonists, initial encounter; E66.9 Obesity, unspecified; E78.5 Hyperlipidemia, unspecified; H91.90 Unspecified hearing loss, unspecified ear; I25.10 Atherosclerotic heart disease of native coronary artery without angina pectoris; I34.0 Nonrheumatic mitral (valve) insufficiency; M19.90 Unspecified osteoarthritis, unspecified site; N40.1 Benign prostatic hyperplasia with lower urinary tract symptoms; R33.8 Other retention of urine; R79.1 Abnormal coagulation profile; S40.022A Contusion of left upper arm, initial encounter; S46.212A Strain of muscle, fascia and tendon of other parts of biceps, left arm, initial encounter; R55 Syncope and collapse; Z79.01 Long term (current) use of anticoagulants; Z79.899 Other long term (current) drug therapy; Z96.653 Presence of artificial knee joint, bilateral; Z96.641 Presence of right artificial hip joint; Z87.442 Personal history of urinary calculi; Z88.1 Allergy status to other antibiotic agents; Z88.0 Allergy status to penicillin; Z88.2 Allergy status to sulfonamides; Z80.42 Family history of malignant neoplasm of prostate; Z80.8 Family history of malignant neoplasm of other organs or systems; Z82.49 Family history of ischemic heart disease and other diseases of the circulatory system; Z80.41 Family history of malignant neoplasm of ovary; Z83.49 Family history of other endocrine, nutritional and metabolic diseases
CPT/HCPCS: 36415; 71046; 80048; 80053; 83735; 84484; 85025; 85610; 85730; 93005; 99285

== ENCOUNTER → 2020-02-03 | Outpatient (CLI) | payer MEDICARE ==
[2020-02-03 17:01] LABS: Chol/HDL Ratio 3.6; LDL Cholesterol,Calculated 89.4 mg/dL (0.0-131.0); VLDL Calculation 22.6 mg/dL (5.00-40.00)
== END | disposition home or self-care (01) ==
LOC: LABWHC1 09:39
PROVIDERS: ATTEND Internal Medicine Cardiovascular Disease
DX: E78.2 Mixed hyperlipidemia (principal)
CPT/HCPCS: 36415; 80061; 84450; 84460

== ENCOUNTER → 2020-06-30 | Outpatient (CLI) | payer MEDICARE ==
--- NOTE | 2020-06-30 11:18 | XR ---
EXAMINATION TYPE: XR KUB DATE OF EXAM: 06/30/2020 COMPARISON: 04/08/2019 HISTORY: Renal calculus TECHNIQUE: Abdomen FINDINGS: Right hip prosthesis is present. No acute osseous abnormality is evident. There is a 2.7 x 1.2 cm calcification inferior pole left kidney. A 0.6 cm calcification may be adjace nt. Psoas margins are normal. Organomegaly is not evident. IMPRESSION: 1. Enlarging left renal stones
== END | disposition home or self-care (01) ==
LOC: RADXRMAIN 10:37
PROVIDERS: ATTEND Urology
DX: N20.0 Calculus of kidney (principal)
CPT/HCPCS: 74018

== ENCOUNTER → 2021-03-25 | Outpatient (CLI) | payer MEDICARE | END | disposition home or self-care (01) | LOC: LABWHC1 15:45 | PROVIDERS: ATTEND Orthopaedic Surgery | DX: T56.894A Toxic effect of other metals, undetermined, initial encounter (principal) | CPT/HCPCS: 36415; 82495; 83018 ==

== ENCOUNTER → 2021-03-30 | Outpatient (CLI) | payer MEDICARE ==
--- NOTE | 2021-03-30 18:04 | XR ---
EXAMINATION TYPE: XR KUB DATE OF EXAM: 03/30/2021 Comparison: 06/30/2020 Clinical History: 75-year-old male N20.0 calculus Findings: Right internal arthroplasty. Degenerative changes left hip. Nonobstructive bowel gas pattern. Gas in small bowel loops. No significant stool burden. 1.7 cm calcification the left mid abdomen redemonstrated. Small pelvic phlebolith. Impression: 1.7 cm calcification left midabdomen, probably a nonobstructive renal calculus.
== END | disposition home or self-care (01) ==
LOC: RADXRMAIN 11:24
PROVIDERS: ATTEND Urology
DX: R93.5 Abnormal findings on diagnostic imaging of other abdominal regions, including retroperitoneum (principal)
CPT/HCPCS: 74018

== ENCOUNTER → 2021-04-26 | Outpatient (CLI) | payer MEDICARE ==
[2021-04-26 16:56] LABS: Chol/HDL Ratio 3.1 Ratio; HDL Cholesterol 49.6 mg/dL (40.00-60.00); LDL Cholesterol,Calculated 87.2 mg/dL (0.0-131.0); Triglycerides 86.1 mg/dL (0.00-149.00); VLDL Calculation 17.22 mg/dL (5.00-40.00)
== END | disposition home or self-care (01) ==
LOC: LABWHC1 08:49
PROVIDERS: ATTEND Internal Medicine Cardiovascular Disease
DX: E78.2 Mixed hyperlipidemia (principal)
CPT/HCPCS: 36415; 80061; 84450; 84460

== ENCOUNTER 2021-06-09 07:23 | Inpatient (IN) | payer MEDICARE ==
[2021-06-09] MEDS ORDERED: DEXAMETHASONE SOD PHOSPHATE 10 MG/ML 1 ML VIAL IV STA (07:48)
[2021-06-09] MEDS ORDERED: SODIUM CHLORIDE 0.9% 500 ML 500 ML IV ONE (07:48)
[2021-06-09] MEDS ORDERED: ACETAMINOPHEN TAB 500 MG TAB PO STA (08:06)
--- NOTE | 2021-06-09 08:06 | ED ---
General Adult HPI - General Chief complaint: Shortness of Breath Stated complaint: Covid Symptoms Time Seen by Provider: 06/09/21 07:36 Source: patient, RN notes reviewed, old records reviewed Mode of arrival: wheelchair Limitations: no limitations - History of Present Illness Initial comments: 75-year-old male presenting with 1 week of cough congestion. Patient has had fever and chills. His did test positive for coronavirus. He has had 2 vaccines. He's lost his taste and smell. He's had poor appetite. No significant vomiting but has had nausea. Patient states moderate dyspnea. - Related Data Home Medications Medication Instructions Recorded Confirmed Simvastatin 20 mg PO HS 02/21/15 05/30/19 Acetaminophen Tab [Tylenol] 500 - 1,000 mg PO Q6H PRN 05/30/19 05/30/19 Doxazosin [Cardura] 4 mg PO HS 05/30/19 05/30/19 Metoprolol Tartrate [Lopressor] 25 mg PO QAM 05/30/19 05/30/19 Previous Rx's Medication Instructions Recorded Nitroglycerin Sl Tabs [Nitrostat] 0.4 mg SUBLINGUAL Q5M PRN #30 tab 03/04/19 Warfarin [Coumadin] 5 mg PO HS #0 06/01/19 Allergies Allergy/AdvReac Type Severity Reaction Status Date / Time oxytetracycline Allergy Rash/Hives Verified 06/09/21 07:35 [From Terramycin] oxytetracycline HCl Allergy Rash/Hives Verified 06/09/21 07:35 [From Terramycin] Penicillins Allergy Rash/Hives Verified 06/09/21 07:35 Sulfa (Sulfonamide Allergy Rash/Hives Verified 06/09/21 07:35 Antibiotics) ciprofloxacin [From Cipro] AdvReac Abdominal Verified 06/09/21 07:35 Pain, NAUSEA Review of Systems ROS Statement: Those systems with pertinent positive or pertinent negative responses have been documented in the HPI. ROS Other: All systems not noted in ROS Statement are negative. Past Medical History Past Medical History: Atrial Fibrillation, Chest Pain / Angina, Hearing Disorder / Deafness, Hyperlipidemia, Hypertension, Osteoarthritis (OA), Prostate Disorder Additional Past Medical History / Comment(s): kidney stones, bph, undiagnosed apnea History of Any Multi-Drug Resistant Organisms: None Reported Past Surgical History: Hernia Repair, Orthopedic Surgery Additional Past Surgical History / Comment(s): lump removed from throat, bilateral knee replacement, right hip replacement Past Anesthesia/Blood Transfusion Reactions: No Reported Reaction Past Psychological History: No Psychological Hx Reported Smoking Status: Never smoker Past Alcohol Use History: None Reported Past Drug Use History: None Reported - Past Family History Father History Unknown: Yes Family Medical History: Cancer, Myocardial Infarction ([place]) Additional Family Medical History / Comment(s): prostate cancer Mother History Unknown: Yes Family Medical History: Cancer Brother(s) History Unknown: Yes Family Medical History: Cancer Additional Family Medical History / Comment(s): prostate Sister(s) History Unknown: Yes Family Medical History: Cancer Additional Family Medical History / Comment(s): ovarian, throat/neck cancer Daughter(s) History Unknown: Yes Family Medical History: Thyroid Disorder Additional Family Medical History / Comment(s): hypothyroid General Exam Limitations: no limitations General appearance: alert, in distress Head exam: Present: atraumatic, normocephalic Eye exam: Present: normal appearance, PERRL ENT exam: Present: mucous membranes dry Neck exam: Present: normal inspection. Absent: tenderness, meningismus Respiratory exam: Present: rales, rhonchi, decreased breath sounds Cardiovascular Exam: Present: regular rate, normal rhythm GI/Abdominal exam: Present: soft. Absent: distended, tenderness Extremities exam: Present: normal inspection, normal capillary refill. Absent: pedal edema, calf tenderness Neurological exam: Present: alert, oriented X3, CN II-XII intact. Absent: motor sensory deficit Psychiatric exam: Present: normal affect, normal mood Skin exam: Present: warm, dry, intact. Absent: cyanosis, diaphoretic Course Vital Signs 06/09/21 07:30 Temperature 101 F H Pulse Rate 99 Respiratory 20 Rate Blood Pressure 116/75 O2 Sat by Pulse 89 L Oximetry EKG Findings - EKG Comments: EKG Findings:: H fibrillation, right bundle branch block, rate of 92, QRS duration 142, QTC [address] segment elevation Medical Decision Making - Medical Decision Making 75-year-old male with suspected coronavirus presented to the emergency department with dyspnea and hypoxia. Patient does improve to the low 90s on nasal cannula. He has no previous history of oxygen dependency. Patient test positive for coronavirus. X-ray showed multifocal pneumonia consistent with coronavirus pneumonia. He has elevated inflammatory markers. Case discussed with Dr. España who will admit. Pulmonology placed on consult. He is given Decadron in the emergency department. - Lab Data Result diagrams: 06/09/21 08:01 06/09/21 08:01 Lab Results 06/09/21 06/09/21 06/09/21 Range/Units 08:01 08:01 08:01 WBC 9.4 (3.8-10.6) k/uL RBC 5.54 (4.30-5.90) m/uL Hgb 17.4 (13.0-17.5) gm/dL Hct 53.3 H (39.0-53.0) % MCV 96.1 (80.0-100.0) fL MCH 31.4 (25.0-35.0) pg MCHC 32.6 (31.0-37.0) g/dL RDW 12.7 (11.5-15.5) % Plt Count 191 (150-450) k/uL MPV 8.3 Neutrophils % 89 % Lymphocytes % 5 % Monocytes % 4 % Eosinophils % 0 % Basophils % 0 % Neutrophils # 8.4 H (1.3-7.7) k/uL Lymphocytes # 0.5 L (1.0-4.8) k/uL Monocytes # 0.4 (0-1.0) k/uL Eosinophils # 0.0 (0-0.7) k/uL Basophils # 0.0 (0-0.2) k/uL PT 11.3 (9.0-12.0) sec INR 1.1 (<1.2) APTT 24.6 (22.0-30.0) sec Sodium 133 L (137-145) mmol/L Potassium 4.5 (3.5-5.1) mmol/L Chloride 101 (98-107) mmol/L Carbon Dioxide 25 (22-30) mmol/L Anion Gap 7 mmol/L BUN 20 (9-20) mg/dL Creatinine 1.08 (0.66-1.25) mg/dL Est GFR (CKD-EPI)AfAm 76 (>60 ml/min/1.73 sqM) Est GFR (CKD-EPI)NonAf 66 (>60 ml/min/1.73 sqM) Glucose 129 H (74-99) mg/dL Plasma Lactic Acid Don (0.7-2.0) mmol/L Calcium 9.0 (8.4-10.2) mg/dL Magnesium 1.8 (1.6-2.3) mg/dL Total Bilirubin 1.5 H (0.2-1.3) mg/dL AST 62 H (17-59) U/L ALT 50 H (4-49) U/L Alkaline Phosphatase 60 (38-126) U/L Lactate Dehydrogenase 862 H (313-618) U/L C-Reactive Protein 15.7 H (<1.0) mg/dL Total Protein 6.9 (6.3-8.2) g/dL Albumin 3.6 (3.5-5.0) g/dL Coronavirus (PCR) (Not Detectd) 06/09/21 06/09/21 Range/Units 08:01 08:01 WBC (3.8-10.6) k/uL RBC (4.30-5.90) m/uL Hgb (13.0-17.5) gm/dL Hct (39.0-53.0) % MCV (80.0-100.0) fL MCH (25.0-35.0) pg MCHC (31.0-37.0) g/dL RDW (11.5-15.5) % Plt Count (150-450) k/uL MPV Neutrophils % % Lymphocytes % % Monocytes % % Eosinophils % % Basophils % % Neutrophils # (1.3-7.7) k/uL Lymphocytes # (1.0-4.8) k/uL Monocytes # (0-1.0) k/uL Eosinophils # (0-0.7) k/uL Basophils # (0-0.2) k/uL PT (9.0-12.0) sec INR (<1.2) APTT (22.0-30.0) sec Sodium (137-145) mmol/L Potassium (3.5-5.1) mmol/L Chloride (98-107) mmol/L Carbon Dioxide (22-30) mmol/L Anion Gap mmol/L BUN (9-20) mg/dL Creatinine (0.66-1.25) mg/dL Est GFR (CKD-EPI)AfAm (>60 ml/min/1.73 sqM) Est GFR (CKD-EPI)NonAf (>60 ml/min/1.73 sqM) Glucose (74-99) mg/dL Plasma Lactic Acid Don 1.6 (0.7-2.0) mmol/L Calcium (8.4-10.2) mg/dL Magnesium (1.6-2.3) mg/dL Total Bilirubin (0.2-1.3) mg/dL AST (17-59) U/L ALT (4-49) U/L Alkaline Phosphatase (38-126) U/L Lactate Dehydrogenase (313-618) U/L C-Reactive Protein (<1.0) mg/dL Total Protein (6.3-8.2) g/dL Albumin (3.5-5.0) g/dL Coronavirus (PCR) Detected A (Not Detectd) Critical Care Time Critical Care Time: Yes Total Critical Care Time: 35 Disposition Clinical Impression: Pneumonia due to COVID-19 virus, Afib, Hypoxia Disposition: [facility]ITT[facility] Condition: Stable Is patient prescribed a controlled substance at d/c from ED?: No Referrals: Nano Brand MD [Primary Care Provider] - 1-2 days Decision to Admit Reason: Admit from EC Decision Date: 06/09/21 Decision Time: 09:50
[2021-06-09 08:28] LABS: Basophils % (A) 0 %; Eosinophils % (A) 0 %; HCT 53.3 % (39.0-53.0); HGB 17.4 gm/dL (13.0-17.5); Lymphocytes # (A) 0.5 k/uL (1.0-4.8); Lymphocytes % (A) 5 %; MCH 31.4 pg (25.0-35.0); MCHC 32.6 g/dL (31.0-37.0); MCV 96.1 fL (80.0-100.0); Mean Platelet Volume 8.3; Monocytes # (A) 0.4 k/uL (0-1.0); Monocytes % (A) 4 %; Neutrophils # (A) 8.4 k/uL (1.3-7.7); Neutrophils % (A) 89 %; Platelet Count 191 k/uL (150-450); RBC 5.54 m/uL (4.30-5.90); RDW 12.7 % (11.5-15.5); WBC 9.4 k/uL (3.8-10.6)
[2021-06-09 08:43] LABS: Albumin 3.6 g/dL (3.5-5.0); Magnesium 1.8 mg/dL (1.6-2.3); Potassium 4.5 mmol/L (3.5-5.1); Total Bilirubin 1.5 mg/dL (0.2-1.3); Total Protein 6.9 g/dL (6.3-8.2)
[2021-06-09 08:44] LABS: INR 1.1 (<1.2); Partial Thromboplastin Time 24.6 sec (22.0-30.0); Prothrombin Time 11.3 sec (9.0-12.0)
--- NOTE | 2021-06-09 08:49 | XR ---
EXAMINATION TYPE: XR chest 1V portable DATE OF EXAM: 06/09/2021 Comparison: 05/30/2019 Clinical History: 75-year-old male Suspected COVID-19 pneumonia Findings: Heart is enlarged. Patchy mid and lower lung opacities are present. No pleural effusion. Impression: 1. Mild cardiomegaly. 2. Patchy mid and lower lung COVID infiltrates.
[2021-06-09 08:59] LABS: C Reactive Protein 15.7 mg/dL (<1.0)
[2021-06-09] MEDS ORDERED: NALOXONE 0.4 MG/ML 1 ML VIAL IV PRN (09:45)
[2021-06-09] MEDS ORDERED: ACETAMINOPHEN TAB 325 MG TAB PO PRN (09:45)
[2021-06-09] MEDS: SODIUM CHLORIDE 0.9% 1,000 ML IV SCH ×2 (11:17→20:25)
[2021-06-09] MEDS: ZINC SULFATE 220 MG CAP PO SCH (11:19)
[2021-06-09] MEDS: CHOLECALCIFEROL 25 MCG (1000 IU) TABLET PO SCH (11:19)
--- NOTE | 2021-06-09 11:26 | P.HPIM ---
History of Present Illness This is a pleasant 75 years old male with past medical history of Atrial Fibrillation, Hearing Disorder / Deafness, Hyperlipidemia, Hypertension, Osteoarthritis ,kidney stones, bph Patient presents because of dyspnea for 4 days duration associated with coughing and occasional phlegm. He denies chest pain or abdominal pain. No diarrhea or change in urine or bowel habits. He denies fever. He states he got Covid vaccination not sure when but about 4 months ago He denies smoking or illicit drugs, he drinks alcohol occasionally Patient had fever of 101. He is 89% on room air and 95% on 2 L oxygen for nasal cannula CBC showing mild lymphopenia 0.5. INR is 1.1 more BMP is unremarkable with sodium 133 and creatinine 1.08. Liver enzymes mildly elevated AST 62 and ALT 50. High lactic dehydrogenase 862 and C-reactive protein 15.7. Rajput virus is detected Chest x-ray:bilateral patchy infiltrate in the mid and lower lungs EKG showing atrial fibrillation at [address]-T changes and QTC 482 Was already started on exam his is on an normal saline at 75 mL/h with pulmonary consult Review of Systems CONSTITUTIONAL: No fever, no malaise, no fatigue. HEENT: No recent visual problems or hearing problems. Denied any sore throat. CARDIOVASCULAR: No orthopnea, PND, no palpitations, no syncope. PULMONARY: No chest wall tenderness no hemoptysis. GASTROINTESTINAL: No diarrhea, no nausea, no vomiting, no abdominal pain. Normoactive bowel sounds. NEUROLOGICAL: No headaches, no weakness, no numbness. HEMATOLOGICAL: Denies any bleeding or petechiae. GENITOURINARY: Denies any burning micturition, frequency, or urgency. MUSCULOSKELETAL/RHEUMATOLOGICAL: Denies any joint pain, swelling, or any muscle pain. ENDOCRINE: Denies any polyuria or polydipsia. Past Medical History Past Medical History: Atrial Fibrillation, Chest Pain / Angina, Hearing Disorder / Deafness, Hyperlipidemia, Hypertension, Osteoarthritis (OA), Prostate Disorder Additional Past Medical History / Comment(s): kidney stones, bph, undiagnosed apnea History of Any Multi-Drug Resistant Organisms: None Reported Past Surgical History: Hernia Repair, Orthopedic Surgery Additional Past Surgical History / Comment(s): lump removed from throat, bilateral knee replacement, right hip replacement Past Anesthesia/Blood Transfusion Reactions: No Reported Reaction Past Psychological History: No Psychological Hx Reported Smoking Status: Never smoker Past Alcohol Use History: None Reported Past Drug Use History: None Reported - Past Family History Father History Unknown: Yes Family Medical History: Cancer, Myocardial Infarction ([place]) Additional Family Medical History / Comment(s): prostate cancer Mother History Unknown: Yes Family Medical History: Cancer Brother(s) History Unknown: Yes Family Medical History: Cancer Additional Family Medical History / Comment(s): prostate Sister(s) History Unknown: Yes Family Medical History: Cancer Additional Family Medical History / Comment(s): ovarian, throat/neck cancer Daughter(s) History Unknown: Yes Family Medical History: Thyroid Disorder Additional Family Medical History / Comment(s): hypothyroid Medications and Allergies Home Medications Medication Instructions Recorded Confirmed Type Simvastatin 20 mg PO HS 02/21/15 06/09/21 History Apixaban [Eliquis] 5 mg PO BID 06/09/21 06/09/21 History Finasteride [Proscar] 5 mg PO DAILY@1500 06/09/21 06/09/21 History Glucosamine/Chondr Charles A Sod [Osteo 1 tab PO DAILY 06/09/21 06/09/21 History Bi-Flex Caplet] Metoprolol Tartrate [Lopressor] 25 mg PO BID 06/09/21 06/09/21 History Tamsulosin [Flomax] 0.4 mg PO HS 06/09/21 06/09/21 History Allergies Allergy/AdvReac Type Severity Reaction Status Date / Time oxytetracycline Allergy Rash/Hives Verified 06/09/21 10:21 [From Terramycin] oxytetracycline HCl Allergy Rash/Hives Verified 06/09/21 10:21 [From Terramycin] Penicillins Allergy Rash/Hives Verified 06/09/21 10:21 Sulfa (Sulfonamide Allergy Rash/Hives Verified 06/09/21 10:21 Antibiotics) ciprofloxacin [From Cipro] AdvReac Abdominal Verified 06/09/21 10:21 Pain, NAUSEA Physical Exam Vitals: Vital Signs Temp Pulse Resp BP Pulse Ox 06/09/21 09:55 98.8 F 112 H 22 114/83 95 06/09/21 07:30 101 F H 99 20 116/75 89 L Intake and Output 06/08/21 06/09/21 06/09/21 22:59 06:59 14:59 Other: Weight 149.685 kg GENERAL: The patient is alert and oriented x3, not in any acute distress. Well developed, well nourished. HEENT: Pupils are round and equally reacting to light. EOMI. No scleral icterus. No conjunctival pallor. Normocephalic, atraumatic. No pharyngeal erythema. No thyromegaly. CARDIOVASCULAR: S1 and S2 present. No murmurs, rubs, or gallops. -PULMONARY: Chest is clear to auscultation, no wheezing or crackles. Bilateral crepitation ABDOMEN: Soft, nontender, nondistended, normoactive bowel sounds. No palpable organomegaly. MUSCULOSKELETAL: No joint swelling or deformity. EXTREMITIES: No cyanosis, clubbing, or pedal edema. NEUROLOGICAL: Gross neurological examination did not reveal any focal deficits. SKIN: No rashes. No petechiae Results CBC & Chem 7: 06/09/21 08:01 06/09/21 08:01 Labs: Abnormal Lab Results - Last 24 Hours (Table) 06/09/21 06/09/21 06/09/21 Range/Units 08:01 08:01 08:01 Hct 53.3 H (39.0-53.0) % Neutrophils # 8.4 H (1.3-7.7) k/uL Lymphocytes # 0.5 L (1.0-4.8) k/uL Sodium 133 L (137-145) mmol/L Glucose 129 H (74-99) mg/dL Total Bilirubin 1.5 H (0.2-1.3) mg/dL AST 62 H (17-59) U/L ALT 50 H (4-49) U/L Lactate Dehydrogenase 862 H (313-618) U/L C-Reactive Protein 15.7 H (<1.0) mg/dL Coronavirus (PCR) Detected A (Not Detectd) Assessment and Plan Assessment: Bilateral Covid pneumonia Acute hypoxic respiratory failure Increased inflammatory markers Chronic atrial fibrillation on Eliquis Hypertension Hyperlipidemia History of osteoarthritis History of kidney stones History of BPH morbid Obesity with BMI of 44.8 Plan: covid pneumonia Continue with dexamethasone Continue with vitamin C, vitamin D and zinc Pulmonary consult Labs and medication were reviewed.. Continue same treatment. Continue with symptomatic treatment. Resume home medication. Monitor lytes and vitals. DVT and GI prophylaxis. Further recommendations depends on the clinical course of the patient DVT prophylaxis: Eliquis GI Prophylaxis: Pepcid Prognosis is guarded
[2021-06-09] MEDS: ASCORBIC ACID 500 MG TAB PO SCH (13:57)
[2021-06-09] MEDS ORDERED: REMDESIVIR 200 MG in SODIUM CHLORIDE 0.9% 250 ML IVPB ONE (14:00)
--- NOTE | 2021-06-09 15:46 | P.CNPUL ---
History of Present Illness Consult date: 06/09/21 Requesting physician: Nano Brand Reason for consult: dyspnea, cough, hypoxemia, pneumonia, abnormal CXR/CT Chief complaint: Shortness of breath, cough. History of present illness: Pulmonary consult dated 06/09/2021. 75-year-old male, who presents to the emergency department on June 09, co mplaining of shortness of breath. The patient has not been feeling well for about 3-4 days. His symptoms include weakness, fatigue, poor appetite, shortness of breath, and nonproductive cough. The patient was not a particularly good historian, but, it appears that he's been sick for about 4 days. Currently, he's on 2 L nasal cannula with saturations of 95%. He is getting saline at KVO. We saw him and examined him, and felt like he was a candidate for REM, Decadron, vitamins, and the patient was ready on a factor X a inhibitor. White count 9.4, hemoglobin 17.4, hematocrit 53.3, and platelet count 191,000. PT, INR, and PTT were normal. Sodium 133, potassium 4.5, chlorides 101, CO2 25, anion gap 7, BUN 20, and creatinine 1.08. Ferritin was 907. Bilirubin was 1.5, AST 62, ALT 50, LDH 862, and C-reactive protein 15.7. Pro-calcitonin level was 0.10. Testing for coronavirus was positive. Chest x- ray showed bilateral patchy lower lobe infiltrates. Review of Systems REVIEW OF SYSTEMS: CONSTITUTIONAL: Weakness and fatigue. NEUROLOGIC: [ Negative.] HEENT: [ Negative.] CARDIAC: [Negative.] PULMONARY: Shortness of breath, and nonproductive cough. GI: Poor appetite. : [Negative.] RHEUMATOLOGIC: [ Negative.] IMMUNOLOGIC: [ Negative.] ENDOCRINE: [Negative. ] DERMATOLOGIC: [Negative.] Past Medical History Past Medical History: Atrial Fibrillation, Chest Pain / Angina, Hearing Disorder / Deafness, Hyperlipidemia, Hypertension, Osteoarthritis (OA), Prostate Disorder Additional Past Medical History / Comment(s): kidney stones, bph, undiagnosed apnea History of Any Multi-Drug Resistant Organisms: None Reported Past Surgical History: Hernia Repair, Orthopedic Surgery Additional Past Surgical History / Comment(s): lump removed from throat, bilateral knee replacement, right hip replacement Past Anesthesia/Blood Transfusion Reactions: No Reported Reaction Past Psychological History: No Psychological Hx Reported Smoking Status: Never smoker Past Alcohol Use History: None Reported Past Drug Use History: None Reported - Past Family History Father History Unknown: Yes Family Medical History: Cancer, Myocardial Infarction ([place]) Additional Family Medical History / Comment(s): prostate cancer Mother History Unknown: Yes Family Medical History: Cancer Brother(s) History Unknown: Yes Family Medical History: Cancer Additional Family Medical History / Comment(s): prostate Sister(s) History Unknown: Yes Family Medical History: Cancer Additional Family Medical History / Comment(s): ovarian, throat/neck cancer Daughter(s) History Unknown: Yes Family Medical History: Thyroid Disorder Additional Family Medical History / Comment(s): hypothyroid Medications and Allergies Home Medications Medication Instructions Recorded Confirmed Type Simvastatin 20 mg PO HS 02/21/15 06/09/21 History Apixaban [Eliquis] 5 mg PO BID 06/09/21 06/09/21 History Finasteride [Proscar] 5 mg PO DAILY@1500 06/09/21 06/09/21 History Glucosamine/Chondr Charles A Sod [Osteo 1 tab PO DAILY 06/09/21 06/09/21 History Bi-Flex Caplet] Metoprolol Tartrate [Lopressor] 25 mg PO BID 06/09/21 06/09/21 History Tamsulosin [Flomax] 0.4 mg PO HS 06/09/21 06/09/21 History Allergies Allergy/AdvReac Type Severity Reaction Status Date / Time oxytetracycline Allergy Rash/Hives Verified 06/09/21 10:21 [From Terramycin] oxytetracycline HCl Allergy Rash/Hives Verified 06/09/21 10:21 [From Terramycin] Penicillins Allergy Rash/Hives Verified 06/09/21 10:21 Sulfa (Sulfonamide Allergy Rash/Hives Verified 06/09/21 10:21 Antibiotics) ciprofloxacin [From Cipro] AdvReac Abdominal Verified 06/09/21 10:21 Pain, NAUSEA Physical Exam Osteopathic Statement: *. No significant issues noted on an osteopathic structural exam other than those noted in the History and Physical/Consult. Vitals: Vital Signs Temp Pulse Resp BP Pulse Ox 06/09/21 09:55 98.8 F 112 H 22 114/83 95 06/09/21 07:30 101 F H 99 20 116/75 89 L Intake and Output 06/09/21 06/09/21 06/09/21 06:59 14:59 22:59 Other: Weight 149.685 kg Mildly tachypnea, oriented 3. Currently on 2 L nasal cannula. Saturations are 95%. Temperature 100.1F HEENT examination is grossly unremarkable. Neck supple. Full range of motion. No adenopathy thyromegaly or neck vein distention. Cardiovascular examination reveals regular rhythm rate. S1-S2 normal. No S3 or S4. No discernible murmur noted. Heart rate 112 bpm. Lungs reveal coarse bilateral scattered rhonchi. No wheezes or crackles. Breath sounds are equal bilaterally. Saturations are 95% on 2 L. Abdomen soft bowel sounds are heard. No masses or tenderness. Extremities are intact. No cyanosis clubbing or edema. Skin is without rash or lesion. Neurologic examination is brief but nonfocal. Results - Laboratory Findings CBC and BMP: 06/09/21 08:01 06/09/21 08:01 PT/INR, D-dimer PT 11.3 sec (9.0-12.0) 06/09/21 08:01 INR 1.1 (<1.2) 06/09/21 08:01 Abnormal lab findings: Abnormal Labs 06/09/21 06/09/21 06/09/21 08:01 08:01 08:01 Hct 53.3 H Neutrophils # 8.4 H Lymphocytes # 0.5 L Sodium 133 L Glucose 129 H Ferritin 907.0 H Total Bilirubin 1.5 H AST 62 H ALT 50 H Lactate Dehydrogenase 862 H C-Reactive Protein 15.7 H Procalcitonin Coronavirus (PCR) Detected A 06/09/21 08:01 Hct Neutrophils # Lymphocytes # Sodium Glucose Ferritin Total Bilirubin AST ALT Lactate Dehydrogenase C-Reactive Protein Procalcitonin 0.10 H Coronavirus (PCR) - Diagnostic Findings Chest x-ray: image reviewed Assessment and Plan Assessment: Acute hypoxemic respiratory failure secondary to coronavirus associated pneumonia. Previous history of coronavirus vaccination with the Moderna vaccine History of chronic atrial fibrillation. History of deafness. History of hyperlipidemia. History of hypertension. History of osteoarthritis. History of kidney stones. Plan: Plan dated 06/09/2021. The patient was given vitamin C, vitamin D3, and zinc. In addition, the patient was ready on Eliquis for his atrial fibrillation. We added Decadron 6 mg IV daily. Finally, because his symptoms were less than 7 days, and he was on less than 6 L nasal cannula, we added REM. He will get 200 mg on day 1, and 100 mg on day 2, day 3, day 4, and day 5. No additional recommendations are made. We will continue to follow and make recommendations where appropriate. Prognosis is guarded. Time with Patient: Greater than 30
[2021-06-09] MEDS: FAMOTIDINE 20 MG/2 ML VIAL IV SCH (20:22)
[2021-06-09] MEDS: FINASTERIDE 5 MG TAB PO SCH (20:22)
[2021-06-09] MEDS: APIXABAN 5 MG TAB PO SCH (20:22)
[2021-06-09] MEDS: METOPROLOL TARTRATE 25 MG TAB PO SCH (20:22)
[2021-06-09] MEDS: TAMSULOSIN 0.4 MG CAP.ER.24H PO SCH (20:22)
[2021-06-10] MEDS: APIXABAN 5 MG TAB PO SCH ×2 (08:34→20:11)
[2021-06-10] MEDS: ZINC SULFATE 220 MG CAP PO SCH (08:34)
[2021-06-10] MEDS: FAMOTIDINE 20 MG/2 ML VIAL IV SCH ×2 (08:34→20:09)
[2021-06-10] MEDS: ASCORBIC ACID 500 MG TAB PO SCH (08:34)
[2021-06-10] MEDS: FINASTERIDE 5 MG TAB PO SCH (08:34)
[2021-06-10] MEDS: DEXAMETHASONE SOD PHOSPHATE 10 MG/ML 1 ML VIAL IVP SCH (08:34)
[2021-06-10] MEDS: CHOLECALCIFEROL 25 MCG (1000 IU) TABLET PO SCH (08:35)
[2021-06-10] MEDS: METOPROLOL TARTRATE 25 MG TAB PO SCH ×2 (08:35→20:12)
--- NOTE | 2021-06-10 12:59 | P.PN ---
Subjective This is a pleasant 75 years old male with past medical history of Atrial Fibrillation, Hearing Disorder / Deafness, Hyperlipidemia, Hypertension, O steoarthritis ,kidney stones, bph Patient presents because of dyspnea for 4 days duration associated with coughing and occasional phlegm. He denies chest pain or abdominal pain. No diarrhea or change in urine or bowel habits. He denies fever. He states he got Covid vaccination not sure when but about 4 months ago He denies smoking or illicit drugs, he drinks alcohol occasionally Patient had fever of 101. He is 89% on room air and 95% on 2 L oxygen for nasal cannula CBC showing mild lymphopenia 0.5. INR is 1.1 more BMP is unremarkable with sodium 133 and creatinine 1.08. Liver enzymes mildly elevated AST 62 and ALT 50. High lactic dehydrogenase 862 and C-reactive protein 15.7. Rajput virus is detected Chest x-ray:bilateral patchy infiltrate in the mid and lower lungs EKG showing atrial fibrillation at [address]-T changes and QTC 482 Was already started on exam his is on an normal saline at 75 mL/h with pulmonary consult 06/10/2021 Patient is still with significant dyspnea but he is fully awake and our intention and can walk in the room but is limited by his breathing pattern. No fever. he feels generally weak. No significant coughing or diarrhea. He still saturating 90s on 4 L oxygen via nasal cannula. Rest of vital signs stable. Continue with same treatment of dexamethasone, multiple vitamins, Eliquis, normal saline at 75 mL/h and remdesivir Objective - Vital Signs Vital signs: Vital Signs Temp 97.4 F L 06/10/21 10:00 Pulse 82 06/10/21 10:00 Resp 18 06/10/21 10:00 BP 93/64 06/10/21 10:00 Pulse Ox 94 L 06/10/21 10:00 Intake & Output 06/09/21 06/10/21 06/10/21 18:59 06:59 18:59 Weight 149.685 kg 149.685 kg Other: # Voids 2 - Exam -GENERAL: The patient is alert and oriented x3, not in any acute distress. Morbidly obese HEENT: Pupils are round and equally reacting to light. EOMI. No scleral icterus. No conjunctival pallor. Normocephalic, atraumatic. No pharyngeal erythema. No thyromegaly. CARDIOVASCULAR: S1 and S2 present. No murmurs, rubs, or gallops. -PULMONARY: Chest is clear to auscultation, no wheezing or crackles. Bilateral crepitation ABDOMEN: Soft, nontender, nondistended, normoactive bowel sounds. No palpable organomegaly. MUSCULOSKELETAL: No joint swelling or deformity. EXTREMITIES: No cyanosis, clubbing, or pedal edema. NEUROLOGICAL: Gross neurological examination did not reveal any focal deficits. SKIN: No rashes. no petechiae. - Labs CBC & Chem 7: 06/09/21 08:01 06/09/21 08:01 Labs: Abnormal Lab Results - Last 24 Hours (Table) 06/09/21 Range/Units 08:01 Ferritin 907.0 H (22.0-322.0) ng/mL Assessment and Plan Assessment: Bilateral Covid pneumonia Acute hypoxic respiratory failure Increased inflammatory markers Chronic atrial fibrillation on Eliquis Hypertension Hyperlipidemia History of osteoarthritis History of kidney stones History of BPH morbid Obesity with BMI of 44.8 Plan: covid pneumonia Continue with dexamethasone Continue with vitamin C, vitamin D and zinc Pulmonary consult Labs and medication were reviewed.. Continue same treatment. Continue with symptomatic treatment. Resume home medication. Monitor lytes and vitals. DVT and GI prophylaxis. Further recommendations depends on the clinical course of the patient DVT prophylaxis: Eliquis GI Prophylaxis: Pepcid Prognosis is guarded
--- NOTE | 2021-06-10 15:07 | P.PN ---
Subjective Progress Note Date: 06/10/21 Principal diagnosis: COVID-19 pneumonia 75-year-old male, who presents to the emergency department on June 09, complaining of shortness of breath. The patient has not been feeling well for about 3-4 days. His symptoms include weakness, fatigue, poor appetite, shortness of breath, and nonproductive cough. The patient was not a particularly good historian, but, it appears that he's been sick for about 4 days. Currently, he's on 2 L nasal cannula with saturations of 95%. He is getting saline at [facility]. We saw him and examined him, and felt like he was a candidate for REM, Decadron, vitamins, and the patient was ready on a factor X a inhibitor. White count 9.4, hemoglobin 17.4, hematocrit 53.3, and platelet count 191,000. PT, INR, and PTT were normal. Sodium 133, potassium 4.5, chlorides 101, CO2 25, anion gap 7, BUN 20, and creatinine 1.08. Ferritin was 907. Bilirubin was 1.5, AST 62, ALT 50, LDH 862, and C-reactive protein 15.7. Pro-calcitonin level was 0.10. Testing for coronavirus was positive. Chest x- ray showed bilateral patchy lower lobe infiltrates. The patient is seen today 06/10/2021 in follow-up on the regular medical floor. He is currently sitting up in a chair at the bedside. Awake and alert in no acute distress. He is breathing a bit better today compared to yesterday. Not quite back to his baseline. He is maintaining O2 saturations in the low 90s on 4 L/m per nasal cannula. Afebrile. Hemodynamically stable. He is continued on Decadron, vitamin supplements. Anticoagulated with Eliquis. This is day #2 of Remdesivir. Objective - Vital Signs Vital signs: Vital Signs Temp 98.4 F 06/10/21 14:00 Pulse 97 06/10/21 14:00 Resp 16 06/10/21 14:00 BP 123/74 06/10/21 14:00 Pulse Ox 91 L 06/10/21 14:00 Intake & Output 06/09/21 06/10/21 06/10/21 18:59 06:59 18:59 Weight 149.685 kg 149.685 kg Other: # Voids 2 - Exam GENERAL EXAM: Alert, obese, pleasant 75-year-old gentleman, on 4 L nasal cannula, comfortable in no apparent distress. HEAD: Normocephalic. EYES: Normal reaction of pupils, equal size. NOSE: Clear with pink turbinates. THROAT: No erythema or exudates. NECK: No masses, no JVD. CHEST: No chest wall deformity. LUNGS: Equal air entry with coarse crackles in the bilateral bases CVS: S1 and S2 normal with no audible murmur, regular rhythm. ABDOMEN: No hepatosplenomegaly, normal bowel sounds, no guarding or rigidity. SPINE: No scoliosis or deformity SKIN: No rashes CENTRAL NERVOUS SYSTEM: No focal deficits, tone is normal in all 4 extremities. EXTREMITIES: There is no peripheral edema. No clubbing, no cyanosis. Peripheral pulses are intact. - Labs CBC & Chem 7: 06/09/21 08:01 06/09/21 08:01 Assessment and Plan Assessment: 1 Acute hypoxemic respiratory failure secondary to coronavirus associated pneumonia. 2 Previous history of coronavirus vaccination with the Moderna vaccine 3 History of chronic atrial fibrillation. 4 History of deafness. 5 History of hyperlipidemia. 6 History of hypertension. 7 History of osteoarthritis. 8 History of kidney stones. Plan: The patient was seen and evaluated by Dr. Valiente Continue with the current treatment plan Day #2 of Remdesivir Continued on Decadron, Eliquis, vitamin supplements Titrate the FiO2 as tolerated We will continue to follow I, the cosigning physician, performed a history & physical examination of the patient. Lungs sounds with crackles in the bilateral bases. Maintaining good O2 saturations in the 90s on 4 L/m per nasal. I discussed the assessment and plan of care with my nurse practitioner, Mayuri Padilla. I attest to the above note as dictated by her.
[2021-06-10] MEDS: REMDESIVIR 100 MG in SODIUM CHLORIDE 0.9% 250 ML IVPB SCH (16:40)
[2021-06-10] MEDS: SODIUM CHLORIDE 0.9% 1,000 ML IV SCH (16:40)
[2021-06-10] MEDS: TAMSULOSIN 0.4 MG CAP.ER.24H PO SCH (20:12)
[2021-06-11] MEDS: SODIUM CHLORIDE 0.9% 1,000 ML IV SCH ×2 (01:46→14:38)
[2021-06-11] MEDS: APIXABAN 5 MG TAB PO SCH ×2 (10:07→21:21)
[2021-06-11] MEDS: ASCORBIC ACID 500 MG TAB PO SCH (10:07)
[2021-06-11] MEDS: ZINC SULFATE 220 MG CAP PO SCH (10:07)
[2021-06-11] MEDS: CHOLECALCIFEROL 25 MCG (1000 IU) TABLET PO SCH (10:07)
[2021-06-11] MEDS: METOPROLOL TARTRATE 25 MG TAB PO SCH ×2 (10:07→21:21)
[2021-06-11] MEDS: DEXAMETHASONE SOD PHOSPHATE 10 MG/ML 1 ML VIAL IVP SCH (10:11)
[2021-06-11] MEDS: FAMOTIDINE 20 MG/2 ML VIAL IV SCH ×2 (10:11→21:20)
--- NOTE | 2021-06-11 14:13 | P.PN ---
Subjective This is a pleasant 75 years old male with past medical history of Atrial Fibrillation, Hearing Disorder / Deafness, Hyperlipidemia, Hypertension, O steoarthritis ,kidney stones, bph Patient presents because of dyspnea for 4 days duration associated with coughing and occasional phlegm. He denies chest pain or abdominal pain. No diarrhea or change in urine or bowel habits. He denies fever. He states he got Covid vaccination not sure when but about 4 months ago He denies smoking or illicit drugs, he drinks alcohol occasionally Patient had fever of 101. He is 89% on room air and 95% on 2 L oxygen for nasal cannula CBC showing mild lymphopenia 0.5. INR is 1.1 more BMP is unremarkable with sodium 133 and creatinine 1.08. Liver enzymes mildly elevated AST 62 and ALT 50. High lactic dehydrogenase 862 and C-reactive protein 15.7. Rajput virus is detected Chest x-ray:bilateral patchy infiltrate in the mid and lower lungs EKG showing atrial fibrillation at [address]-T changes and QTC 482 Was already started on exam his is on an normal saline at 75 mL/h with pulmonary consult 06/10/2021 Patient is still with significant dyspnea but he is fully awake and our intention and can walk in the room but is limited by his breathing pattern. No fever. he feels generally weak. No significant coughing or diarrhea. He still saturating 90s on 4 L oxygen via nasal cannula. Rest of vital signs stable. Continue with same treatment of dexamethasone, multiple vitamins, Eliquis, normal saline at 75 mL/h and remdesivir 06/11/2021 Patient still with dyspnea and still on 4 L/m of oxygen with saturation 90%. Afebrile. Hemodynamically stable. Eating and working is fine but patient tires very quick. Today's he is on dexamethasone, multiple vitamins, Eliquis, normal saline at 75 mL/h and remdesivir (last dose 06/13) Objective - Vital Signs Vital signs: Vital Signs Temp 97.9 F 06/11/21 06:13 Pulse 95 06/11/21 06:13 Resp 17 06/11/21 08:00 BP 115/63 06/11/21 06:13 Pulse Ox 90 L 06/11/21 08:00 Intake & Output 06/10/21 06/11/21 06/11/21 18:59 06:59 18:59 Other: # Voids 2 2 - Exam -GENERAL: The patient is alert and oriented x3, not in any acute distress. Morbidly obese HEENT: Pupils are round and equally reacting to light. EOMI. No scleral icterus. No conjunctival pallor. Normocephalic, atraumatic. No pharyngeal erythema. No thyromegaly. CARDIOVASCULAR: S1 and S2 present. No murmurs, rubs, or gallops. -PULMONARY: Chest is clear to auscultation, no wheezing or crackles. Bilateral crepitation ABDOMEN: Soft, nontender, nondistended, normoactive bowel sounds. No palpable organomegaly. MUSCULOSKELETAL: No joint swelling or deformity. EXTREMITIES: No cyanosis, clubbing, or pedal edema. NEUROLOGICAL: Gross neurological examination did not reveal any focal deficits. SKIN: No rashes. no petechiae. - Labs CBC & Chem 7: 06/09/21 08:01 06/09/21 08:01 Assessment and Plan Assessment: Bilateral Covid pneumonia Acute hypoxic respiratory failure Increased inflammatory markers Chronic atrial fibrillation on Eliquis Hypertension Hyperlipidemia History of osteoarthritis History of kidney stones History of BPH morbid Obesity with BMI of 44.8 Plan: covid pneumonia Continue with dexamethasone Continue with vitamin C, vitamin D and zinc Pulmonary consult Labs and medication were reviewed.. Continue same treatment. Continue with symptomatic treatment. Resume home medication. Monitor lytes and vitals. DVT and GI prophylaxis. Further recommendations depends on the clinical course of the patient DVT prophylaxis: Eliquis GI Prophylaxis: Pepcid Prognosis is guarded
[2021-06-11] MEDS: REMDESIVIR 100 MG in SODIUM CHLORIDE 0.9% 250 ML IVPB SCH (14:31)
[2021-06-11] MEDS: FINASTERIDE 5 MG TAB PO SCH (14:31)
--- NOTE | 2021-06-11 18:57 | P.PN ---
Subjective Progress Note Date: 06/11/21 Principal diagnosis: COVID-19 pneumonia 75-year-old male, who presents to the emergency department on June 09, complaining of shortness of breath. The patient has not been feeling well for about 3-4 days. His symptoms include weakness, fatigue, poor appetite, shortness of breath, and nonproductive cough. The patient was not a particularly good historian, but, it appears that he's been sick for about 4 days. Currently, he's on 2 L nasal cannula with saturations of 95%. He is getting saline at [facility]. We saw him and examined him, and felt like he was a candidate for REM, Decadron, vitamins, and the patient was ready on a factor X a inhibitor. White count 9.4, hemoglobin 17.4, hematocrit 53.3, and platelet count 191,000. PT, INR, and PTT were normal. Sodium 133, potassium 4.5, chlorides 101, CO2 25, anion gap 7, BUN 20, and creatinine 1.08. Ferritin was 907. Bilirubin was 1.5, AST 62, ALT 50, LDH 862, and C-reactive protein 15.7. Pro-calcitonin level was 0.10. Testing for coronavirus was positive. Chest x- ray showed bilateral patchy lower lobe infiltrates. The patient is seen today 06/10/2021 in follow-up on the regular medical floor. He is currently sitting up in a chair at the bedside. Awake and alert in no acute distress. He is breathing a bit better today compared to yesterday. Not quite back to his baseline. He is maintaining O2 saturations in the low 90s on 4 L/m per nasal cannula. Afebrile. Hemodynamically stable. He is continued on Decadron, vitamin supplements. Anticoagulated with Eliquis. This is day #2 of Remdesivir. The patient is seen today 06/11/2021 in follow-up on the regular medical floor. He is awake and alert in no acute distress. Maintaining O2 saturations in the low 90s on 4 L/m per nasal cannula. 0.9 normal saline at 75 ML's per hour. This is day #3 of Remdesivir. He is continuing on Decadron, vitamin supplements. Anticoagulated with Eliquis. Objective - Vital Signs Vital signs: Vital Signs Temp 97.5 F L 06/11/21 14:36 Pulse 77 06/11/21 14:36 Resp 18 06/11/21 14:36 BP 135/80 06/11/21 14:36 Pulse Ox 92 L 06/11/21 14:36 Intake & Output 06/10/21 06/11/21 06/11/21 18:59 06:59 18:59 Intake Total 1690 Balance 1690 Intake: Intake, IV Titration 1150 Amount Remdesivir 100 mg In 250 Sodium Chloride 0.9% 250 ml @ 250 mls/hr IVPB DAILY@1400 [facility] Rx#: [id number] Sodium Chloride 0.9% 1, 900 000 ml @ 75 mls/hr IV . [id number] [facility] Rx#:[id number] Oral 540 Other: # Voids 2 2 2 - Exam GENERAL EXAM: Alert, obese, pleasant 75-year-old gentleman, on 4 L nasal cannula, comfortable in no apparent distress. HEAD: Normocephalic. EYES: Normal reaction of pupils, equal size. NOSE: Clear with pink turbinates. THROAT: No erythema or exudates. NECK: No masses, no JVD. CHEST: No chest wall deformity. LUNGS: Equal air entry with coarse crackles in the bilateral bases CVS: S1 and S2 normal with no audible murmur, regular rhythm. ABDOMEN: No hepatosplenomegaly, normal bowel sounds, no guarding or rigidity. SPINE: No scoliosis or deformity SKIN: No rashes CENTRAL NERVOUS SYSTEM: No focal deficits, tone is normal in all 4 extremities. EXTREMITIES: There is no peripheral edema. No clubbing, no cyanosis. Peripheral pulses are intact. - Labs CBC & Chem 7: 06/09/21 08:01 06/09/21 08:01 Assessment and Plan Assessment: 1 Acute hypoxemic respiratory failure secondary to coronavirus associated p neumonia. 2 Previous history of coronavirus vaccination with the Moderna vaccine 3 History of chronic atrial fibrillation. 4 History of deafness. 5 History of hyperlipidemia. 6 History of hypertension. 7 History of osteoarthritis. 8 History of kidney stones. Plan: The patient was seen and evaluated by Dr. Valiente Currently stable from the pulmonary standpoint Day #3 of Remdesivir Continued on Decadron, Eliquis, vitamin supplements Titrate the FiO2 as tolerated Follow-up chest x-ray and labs in the a.m. We will continue to follow I, the cosigning physician, performed a history & physical examination of the patient. Lungs sounds with crackles in the bilateral bases. Maintaining good O2 saturations in the 90s on 4 L/m per nasal. I discussed the assessment and plan of care with my nurse practitioner, Mayuri Padilla. I attest to the above note as dictated by her.
[2021-06-11] MEDS: TAMSULOSIN 0.4 MG CAP.ER.24H PO SCH (21:21)
[2021-06-12] MEDS: SODIUM CHLORIDE 0.9% 1,000 ML IV SCH ×2 (05:35→17:55)
--- NOTE | 2021-06-12 07:30 | XR ---
EXAMINATION TYPE: XR chest 1V portable DATE OF EXAM: 06/12/2021 CLINICAL HISTORY: Difficulty breathing cough and CoVID pneumonia progress study. TECHNIQUE: Single AP portable upright view of the chest is obtained. COMPARISON: Chest x-ray from 3 days earlier FINDINGS: Persistent cardiomegaly with bilateral multifocal and confluent opacities. Elevated right hemidiaphragm. Osseous structures are intact. Evaluation is suboptimal due to large body habitus. IMPRESSION: Persistent cardiomegaly with bilateral multifocal and confluent opacities consistent with known covid-19 infection, no significant change from most recent x-ray.
[2021-06-12] MEDS: METOPROLOL TARTRATE 25 MG TAB PO SCH ×2 (08:44→19:29)
[2021-06-12] MEDS: APIXABAN 5 MG TAB PO SCH ×2 (08:44→19:30)
[2021-06-12] MEDS: CHOLECALCIFEROL 25 MCG (1000 IU) TABLET PO SCH (08:44)
[2021-06-12] MEDS: ASCORBIC ACID 500 MG TAB PO SCH (08:44)
[2021-06-12] MEDS: ZINC SULFATE 220 MG CAP PO SCH (08:44)
[2021-06-12] MEDS: DEXAMETHASONE SOD PHOSPHATE 10 MG/ML 1 ML VIAL IVP SCH (08:45)
[2021-06-12] MEDS: FAMOTIDINE 20 MG/2 ML VIAL IV SCH ×2 (08:45→19:30)
[2021-06-12 08:47] LABS: Basophils % (A) 0 %; Eosinophils % (A) 0 %; HCT 50.7 % (39.0-53.0); HGB 16.6 gm/dL (13.0-17.5); Lymphocytes # (A) 0.6 k/uL (1.0-4.8); Lymphocytes % (A) 5 %; MCHC 32.7 g/dL (31.0-37.0); Mean Platelet Volume 8.7; Monocytes # (A) 0.7 k/uL (0-1.0); Monocytes % (A) 6 %; Neutrophils # (A) 10.4 k/uL (1.3-7.7); Neutrophils % (A) 88 %; Platelet Count 297 k/uL (150-450); RBC 5.34 m/uL (4.30-5.90); RDW 12.8 % (11.5-15.5); WBC 11.8 k/uL (3.8-10.6)
[2021-06-12 11:43] LABS: African American GFR (CKD) 83.8 (60.0-200.0); Albumin 3.5 g/dL (3.8-4.9); Albumin/Globulin Ratio 1.3 (1.60-3.17); Anion Gap 13.5 mmol/L (10.00-18.00); BUN/Creat Ratio 28.8 Ratio (12.00-20.00); Blood Urea Nitrogen 28.8 mg/dL (9.0-27.0); Calcium 9.2 mg/dL (8.7-10.3); Carbon Dioxide 22.5 mmol/L (20.0-27.5); Globulin 2.7 g/dL (1.6-3.3); Non-African American GFR(CKD) 72.3 (60.0-200.0); Potassium 4.8 mmol/L (3.5-5.5); Total Bilirubin 0.5 mg/dL (0.30-1.20); Total Protein 6.2 g/dL (6.2-8.2)
[2021-06-12] MEDS: FINASTERIDE 5 MG TAB PO SCH (14:55)
[2021-06-12] MEDS: REMDESIVIR 100 MG in SODIUM CHLORIDE 0.9% 250 ML IVPB SCH (14:55)
--- NOTE | 2021-06-12 17:55 | P.PN ---
Subjective Progress Note Date: 06/12/21 Principal diagnosis: Dyspnea On 06/12/2021 patient seen in follow-up on medical surgical floor, he is currently on 4 L of oxygen with a pulse ox of 93%, breathing comfortably, today is Remdesivir day 2 of treatment, he states his breathing is improving, lung sounds reveal some scattered crackles and wheezes, occasional cough, no phlegm production. Chest x-ray today shows persistent cardiomegaly with bilateral multifocal and confluent opacities consistent with known COVID-19 infection, no significant change. Today's labs have been reviewed, white blood cell count is 11.8, hemoglobin is 16.6, d-dimer is within normal limits at 0.49, a large lites are within normal limits, BUN is 28 creatinine is 1, inflammatory markers are improving and are down to 398 for LDH and 4 for CRP, pro-calcitonin level is negative at 0.10 Objective - Vital Signs Vital signs: Vital Signs Temp 97.6 F 06/12/21 14:47 Pulse 94 06/12/21 14:47 Resp 17 06/12/21 14:47 BP 142/71 06/12/21 14:47 Pulse Ox 90 L 06/12/21 14:47 Intake & Output 06/11/21 06/12/21 06/12/21 18:59 06:59 18:59 Intake Total 1690 Balance 1690 Intake: Intake, IV Titration 1150 Amount Remdesivir 100 mg In 250 Sodium Chloride 0.9% 250 ml @ 250 mls/hr IVPB DAILY@1400 [facility] Rx#: [id number] Sodium Chloride 0.9% 1, 900 000 ml @ 75 mls/hr IV . [id number] [facility] Rx#:[id number] Oral 540 Other: Voiding Method Toilet # Voids 2 3 - Exam GENERAL EXAM: Alert, very pleasant,75-year-old, white male, on 4 L of oxygen and a pulse ox of 90-93% comfortable in no apparent distress. HEAD: Normocephalic/atraumatic. EYES: Normal reaction of pupils, equal size. Conjunctiva pink, sclera white. NOSE: Clear with pink turbinates. THROAT: No erythema or exudates. NECK: No masses, no JVD, no thyroid enlargement, no adenopathy. CHEST: No chest wall deformity. Symmetrical expansion. LUNGS: Equal air entry with bibasilar crackles CVS: Regular rate and rhythm, normal S1 and S2, no gallops, no murmurs, no rubs ABDOMEN: Soft, nontender. No hepatosplenomegaly, normal bowel sounds, no guarding or rigidity. EXTREMITIES: No clubbing, no edema, no cyanosis, 2+ pulses and upper and lower extremities. MUSCULOSKELETAL: Muscle strength and tone normal. SPINE: No scoliosis or deformity SKIN: No rashes CENTRAL NERVOUS SYSTEM: Alert and oriented -3. No focal deficits, tone is normal in all 4 extremities. PSYCHIATRIC: Alert and oriented -3. Appropriate affect. Intact judgment and insight. - Labs CBC & Chem 7: 06/12/21 07:56 06/12/21 07:56 Labs: Abnormal Lab Results - Last 24 Hours (Table) 06/12/21 06/12/21 Range/Units 07:56 07:56 WBC 11.8 H (3.8-10.6) k/uL Neutrophils # 10.4 H (1.3-7.7) k/uL Lymphocytes # 0.6 L (1.0-4.8) k/uL BUN 28.8 H (9.0-27.0) mg/dL BUN/Creatinine Ratio 28.80 H (12.00-20.00) Ratio Glucose 126 H (70-110) mg/dL AST 44 H (14-35) U/L ALT 65 H (10-49) U/L Lactate Dehydrogenase 398 H (120-246) U/L C-Reactive Protein 4.00 H (0.00-0.80) mg/dL Albumin 3.5 L (3.8-4.9) g/dL Albumin/Globulin Ratio 1.30 L (1.60-3.17) g/dL Assessment and Plan Plan: Assessment: #1. Acute hypoxic respiratory failure secondary to COVID-19 pneumonia. Started on Remdesivir on 06/09/2021. Patient is status post completed vaccination with Moderna vaccine in January 2021 #2. History of chronic atrial fibrillation on Xarelto #3. History of hearing deficit #4. Hypertension #5. Hyperlipidemia #6. History of osteoporosis #7. History of kidney stones Plan: Continue Remdesivir, today is day 4 of treatment Continue current dose Decadron Continue multivitamins Inflammatory markers are improving, d-dimer remains within normal limits Continue oral anticoagulation Continue monitoring for signs of worsening dyspnea and hypoxia Overall patient is doing well If it continues to be stable, and improve we'll consider discharge home in next 24-48 hours, possibly on home oxygen I performed a history & physical examination of the patient and discussed their management with my nurse practitioner, Vee Willard. I reviewed the nurse practitioner's note and agree with the documented findings and plan of care. Lung sounds are positive for diminished breath sounds throughout the lung norman. The findings and the impression was discussed with the patient. I attest to the documentation by the nurse practitioner. Time with Patient: Less than 30
[2021-06-12] MEDS ORDERED: ALPRAZolam 0.25 MG TAB PO STA (18:23)
--- NOTE | 2021-06-12 19:00 | P.PN ---
Subjective This is a pleasant 75 years old male with past medical history of Atrial Fibrillation, Hearing Disorder / Deafness, Hyperlipidemia, Hypertension, O steoarthritis ,kidney stones, bph Patient presents because of dyspnea for 4 days duration associated with coughing and occasional phlegm. He denies chest pain or abdominal pain. No diarrhea or change in urine or bowel habits. He denies fever. He states he got Covid vaccination not sure when but about 4 months ago He denies smoking or illicit drugs, he drinks alcohol occasionally Patient had fever of 101. He is 89% on room air and 95% on 2 L oxygen for nasal cannula CBC showing mild lymphopenia 0.5. INR is 1.1 more BMP is unremarkable with sodium 133 and creatinine 1.08. Liver enzymes mildly elevated AST 62 and ALT 50. High lactic dehydrogenase 862 and C-reactive protein 15.7. Rajput virus is detected Chest x-ray:bilateral patchy infiltrate in the mid and lower lungs EKG showing atrial fibrillation at [address]-T changes and QTC 482 Was already started on exam his is on an normal saline at 75 mL/h with pulmonary consult 06/10/2021 Patient is still with significant dyspnea but he is fully awake and our intention and can walk in the room but is limited by his breathing pattern. No fever. he feels generally weak. No significant coughing or diarrhea. He still saturating 90s on 4 L oxygen via nasal cannula. Rest of vital signs stable. Continue with same treatment of dexamethasone, multiple vitamins, Eliquis, normal saline at 75 mL/h and remdesivir 06/11/2021 Patient still with dyspnea and still on 4 L/m of oxygen with saturation 90%. Afebrile. Hemodynamically stable. Eating and working is fine but patient tires very quick. Today's he is on dexamethasone, multiple vitamins, Eliquis, normal saline at 75 mL/h and remdesivir (last dose 06/13) 06/12/2021 Patient breathing looks the same and he is still on 4 L/m of oxygen with saturation only 90%. He is a febrile and dressed O vitals are stable. Mild leukocytosis and liver enzymes are still mildly elevated, the same mostly due to Covid infection. However high inflammatory markers are trending down with LDH down to 398 and C- reactive protein to 4. Continue with the same treatment of dexamethasone, multiple vitamins, Eliquis, normal saline at 75 mL/h and remdesivir. Tomorrow with B the last dose of remdesivir Objective - Vital Signs Vital signs: Vital Signs Temp 97.4 F L 06/12/21 17:24 Pulse 60 06/12/21 17:24 Resp 18 06/12/21 17:24 BP 172/112 06/12/21 17:58 Pulse Ox 91 L 06/12/21 17:24 Intake & Output 06/11/21 06/12/21 06/12/21 18:59 06:59 18:59 Intake Total 1690 880 Balance 1690 880 Intake: Intake, IV Titration 1150 340 Amount Remdesivir 100 mg In 250 100 Sodium Chloride 0.9% 250 ml @ 250 mls/hr IVPB DAILY@1400 [facility] Rx#: [id number] Sodium Chloride 0.9% 1, 900 240 000 ml @ 75 mls/hr IV . [id number] [facility] Rx#:[id number] Oral 540 540 Other: Voiding Method Toilet # Voids 2 3 2 - Exam -GENERAL: The patient is alert and oriented x3, not in any acute distress. Morbidly obese HEENT: Pupils are round and equally reacting to light. EOMI. No scleral icterus. No conjunctival pallor. Normocephalic, atraumatic. No pharyngeal erythema. No thyromegaly. CARDIOVASCULAR: S1 and S2 present. No murmurs, rubs, or gallops. -PULMONARY: Chest is clear to auscultation, no wheezing or crackles. Bilateral crepitation ABDOMEN: Soft, nontender, nondistended, normoactive bowel sounds. No palpable organomegaly. MUSCULOSKELETAL: No joint swelling or deformity. EXTREMITIES: No cyanosis, clubbing, or pedal edema. NEUROLOGICAL: Gross neurological examination did not reveal any focal deficits. SKIN: No rashes. no petechiae. - Labs CBC & Chem 7: 06/12/21 07:56 06/12/21 07:56 Labs: Abnormal Lab Results - Last 24 Hours (Table) 06/12/21 06/12/21 Range/Units 07:56 07:56 WBC 11.8 H (3.8-10.6) k/uL Neutrophils # 10.4 H (1.3-7.7) k/uL Lymphocytes # 0.6 L (1.0-4.8) k/uL BUN 28.8 H (9.0-27.0) mg/dL BUN/Creatinine Ratio 28.80 H (12.00-20.00) Ratio Glucose 126 H (70-110) mg/dL AST 44 H (14-35) U/L ALT 65 H (10-49) U/L Lactate Dehydrogenase 398 H (120-246) U/L C-Reactive Protein 4.00 H (0.00-0.80) mg/dL Albumin 3.5 L (3.8-4.9) g/dL Albumin/Globulin Ratio 1.30 L (1.60-3.17) g/dL Assessment and Plan Assessment: Bilateral Covid pneumonia Acute hypoxic respiratory failure Increased inflammatory markers Chronic atrial fibrillation on Eliquis Hypertension Hyperlipidemia History of osteoarthritis History of kidney stones History of BPH morbid Obesity with BMI of 44.8 Plan: covid pneumonia Continue with dexamethasone Continue with vitamin C, vitamin D and zinc Pulmonary consult Labs and medication were reviewed.. Continue same treatment. Continue with symptomatic treatment. Resume home medication. Monitor lytes and vitals. DVT and GI prophylaxis. Further recommendations depends on the clinical course of the patient DVT prophylaxis: Eliquis GI Prophylaxis: Pepcid Prognosis is guarded
[2021-06-12] MEDS: TAMSULOSIN 0.4 MG CAP.ER.24H PO SCH (19:29)
[2021-06-13] MEDS: METOPROLOL TARTRATE 25 MG TAB PO SCH ×2 (09:32→19:56)
[2021-06-13] MEDS: APIXABAN 5 MG TAB PO SCH ×2 (09:32→19:56)
[2021-06-13] MEDS: ASCORBIC ACID 500 MG TAB PO SCH (09:32)
[2021-06-13] MEDS: FAMOTIDINE 20 MG/2 ML VIAL IV SCH ×2 (09:32→19:56)
[2021-06-13] MEDS: CHOLECALCIFEROL 25 MCG (1000 IU) TABLET PO SCH (09:32)
[2021-06-13] MEDS: DEXAMETHASONE SOD PHOSPHATE 10 MG/ML 1 ML VIAL IVP SCH (09:33)
[2021-06-13] MEDS: SODIUM CHLORIDE 0.9% 1,000 ML IV SCH ×2 (09:33→22:25)
[2021-06-13] MEDS: ZINC SULFATE 220 MG CAP PO SCH (09:33)
[2021-06-13] MEDS: REMDESIVIR 100 MG in SODIUM CHLORIDE 0.9% 250 ML IVPB SCH (14:25)
--- NOTE | 2021-06-13 16:51 | P.PN ---
Subjective Progress Note Date: 06/13/21 Principal diagnosis: COVID-19 pneumonia 75-year-old male, who presents to the emergency department on June 09, complaining of shortness of breath. The patient has not been feeling well for about 3-4 days. His symptoms include weakness, fatigue, poor appetite, shortness of breath, and nonproductive cough. The patient was not a particularly good historian, but, it appears that he's been sick for about 4 days. Currently, he's on 2 L nasal cannula with saturations of 95%. He is getting saline at KVO. We saw him and examined him, and felt like he was a candidate for REM, Decadron, vitamins, and the patient was ready on a factor X a inhibitor. White count 9.4, hemoglobin 17.4, hematocrit 53.3, and platelet count 191,000. PT, INR, and PTT were normal. Sodium 133, potassium 4.5, chlorides 101, CO2 25, anion gap 7, BUN 20, and creatinine 1.08. Ferritin was 907. Bilirubin was 1.5, AST 62, ALT 50, LDH 862, and C-reactive protein 15.7. Pro-calcitonin level was 0.10. Testing for coronavirus was positive. Chest x- ray showed bilateral patchy lower lobe infiltrates. The patient is seen today 06/10/2021 in follow-up on the regular medical floor. He is currently sitting up in a chair at the bedside. Awake and alert in no acute distress. He is breathing a bit better today compared to yesterday. Not quite back to his baseline. He is maintaining O2 saturations in the low 90s on 4 L/m per nasal cannula. Afebrile. Hemodynamically stable. He is continued on Decadron, vitamin supplements. Anticoagulated with Eliquis. This is day #2 of Remdesivir. The patient is seen today 06/11/2021 in follow-up on the regular medical floor. He is awake and alert in no acute distress. Maintaining O2 saturations in the low 90s on 4 L/m per nasal cannula. 0.9 normal saline at 75 ML's per hour. This is day #3 of Remdesivir. He is continuing on Decadron, vitamin supplements. Anticoagulated with Eliquis. The patient is seen today 06/13/2021 in follow-up on the regular medical floor. He is currently resting comfortably in bed. Awake and alert in no acute distress. Maintaining O2 saturations in the mid 90s on 4 L/m per nasal cannula. He's been afebrile. Hemodynamically stable. No new labs or x-rays today. He remains on Decadron, vitamin supplements. Anticoagulated with Eliquis. Objective - Vital Signs Vital signs: Vital Signs Temp 97.5 F L 06/13/21 14:24 Pulse 83 06/13/21 14:24 Resp 18 06/13/21 14:24 BP 153/85 06/13/21 14:24 Pulse Ox 95 06/13/21 14:24 Intake & Output 06/12/21 06/13/21 06/13/21 18:59 06:59 18:59 Intake Total 880 Balance 880 Intake: Intake, IV Titration 340 Amount Remdesivir 100 mg In 100 Sodium Chloride 0.9% 250 ml @ 250 mls/hr IVPB DAILY@1400 [facility] Rx#: [id number] Sodium Chloride 0.9% 1, 240 000 ml @ 75 mls/hr IV . [id number] [facility] Rx#:[id number] Oral 540 Other: Voiding Method Toilet Toilet Toilet # Voids 2 3 - Exam GENERAL EXAM: Alert, obese, pleasant 75-year-old gentleman, on 4 L nasal cannula, comfortable in no apparent distress. HEAD: Normocephalic. EYES: Normal reaction of pupils, equal size. NOSE: Clear with pink turbinates. THROAT: No erythema or exudates. NECK: No masses, no JVD. CHEST: No chest wall deformity. LUNGS: Equal air entry with coarse crackles in the bilateral bases CVS: S1 and S2 normal with no audible murmur, regular rhythm. ABDOMEN: No hepatosplenomegaly, normal bowel sounds, no guarding or rigidity. SPINE: No scoliosis or deformity SKIN: No rashes CENTRAL NERVOUS SYSTEM: No focal deficits, tone is normal in all 4 extremities. EXTREMITIES: There is no peripheral edema. No clubbing, no cyanosis. Peripheral pulses are intact. - Labs CBC & Chem 7: 06/12/21 07:56 06/12/21 07:56 Assessment and Plan Assessment: 1 Acute hypoxemic respiratory failure secondary to coronavirus associated pneumonia. Completed a course of Remdesivir. 2 Previous history of coronavirus vaccination with the Moderna vaccine 3 History of chronic atrial fibrillation. 4 History of deafness. 5 History of hyperlipidemia. 6 History of hypertension. 7 History of osteoarthritis. 8 History of kidney stones. Plan: The patient was seen and evaluated by Dr. Valiente Currently stable from the pulmonary standpoint Day #5 of Remdesivir Continued on Decadron, Eliquis, vitamin supplements Titrate the FiO2 as tolerated Follow-up chest x-ray and labs in the a.m. We will continue to follow I, the cosigning physician, performed a history & physical examination of the patient. Lungs sounds with crackles in the bilateral bases. Maintaining good O2 saturations in the 90s on 4 L/m per nasal. I discussed the assessment and plan of care with my nurse practitioner, Mayuri Padilla. I attest to the above note as dictated by her.
[2021-06-13] MEDS: FINASTERIDE 5 MG TAB PO SCH (17:16)
[2021-06-13] MEDS: TAMSULOSIN 0.4 MG CAP.ER.24H PO SCH (19:56)
--- NOTE | 2021-06-13 20:02 | P.PN ---
Subjective This is a pleasant 75 years old male with past medical history of Atrial Fibrillation, Hearing Disorder / Deafness, Hyperlipidemia, Hypertension, O steoarthritis ,kidney stones, bph Patient presents because of dyspnea for 4 days duration associated with coughing and occasional phlegm. He denies chest pain or abdominal pain. No diarrhea or change in urine or bowel habits. He denies fever. He states he got Covid vaccination not sure when but about 4 months ago He denies smoking or illicit drugs, he drinks alcohol occasionally Patient had fever of 101. He is 89% on room air and 95% on 2 L oxygen for nasal cannula CBC showing mild lymphopenia 0.5. INR is 1.1 more BMP is unremarkable with sodium 133 and creatinine 1.08. Liver enzymes mildly elevated AST 62 and ALT 50. High lactic dehydrogenase 862 and C-reactive protein 15.7. Rajput virus is detected Chest x-ray:bilateral patchy infiltrate in the mid and lower lungs EKG showing atrial fibrillation at [address]-T changes and QTC 482 Was already started on exam his is on an normal saline at 75 mL/h with pulmonary consult 06/10/2021 Patient is still with significant dyspnea but he is fully awake and our intention and can walk in the room but is limited by his breathing pattern. No fever. he feels generally weak. No significant coughing or diarrhea. He still saturating 90s on 4 L oxygen via nasal cannula. Rest of vital signs stable. Continue with same treatment of dexamethasone, multiple vitamins, Eliquis, normal saline at 75 mL/h and remdesivir 06/11/2021 Patient still with dyspnea and still on 4 L/m of oxygen with saturation 90%. Afebrile. Hemodynamically stable. Eating and working is fine but patient tires very quick. Today's he is on dexamethasone, multiple vitamins, Eliquis, normal saline at 75 mL/h and remdesivir (last dose 06/13) 06/12/2021 Patient breathing looks the same and he is still on 4 L/m of oxygen with saturation only 90%. He is a febrile and dressed O vitals are stable. Mild leukocytosis and liver enzymes are still mildly elevated, the same mostly due to Covid infection. However high inflammatory markers are trending down with LDH down to 398 and C- reactive protein to 4. Continue with the same treatment of dexamethasone, multiple vitamins, Eliquis, normal saline at 75 mL/h and remdesivir. Tomorrow with B the last dose of remdesivir 06/13/2021 Patient was starting to get more tired, although his respiratory status is stable and he is saturating on 4 L/m of oxygen. He is been having of nights for the last 2 nights secondary to his breathing. Patient is morbidly obese with BMI 44.8. Also he is hypertensive. Patient might benefit from sleep studies as an outpatient. His appetite is poor to his eating 25-50% of his diet He remains on the same treatment : dexamethasone, multiple vitamins, Eliquis, normal saline at 75 mL/h. he finished remdesivir today Objective - Vital Signs Vital signs: Vital Signs Temp 98.2 F 06/13/21 06:00 Pulse 75 06/13/21 06:00 Resp 19 06/13/21 06:00 BP 130/76 06/13/21 06:00 Pulse Ox 92 L 06/13/21 07:22 Intake & Output 06/12/21 06/13/21 06/13/21 18:59 06:59 18:59 Intake Total 880 Balance 880 Intake: Intake, IV Titration 340 Amount Remdesivir 100 mg In 100 Sodium Chloride 0.9% 250 ml @ 250 mls/hr IVPB DAILY@1400 [facility] Rx#: [id number] Sodium Chloride 0.9% 1, 240 000 ml @ 75 mls/hr IV . [id number] [facility] Rx#:[id number] Oral 540 Other: Voiding Method Toilet Toilet # Voids 2 3 - Exam -GENERAL: The patient is alert and oriented x3, not in any acute distress. Morbidly obese HEENT: Pupils are round and equally reacting to light. EOMI. No scleral icterus. No conjunctival pallor. Normocephalic, atraumatic. No pharyngeal erythema. No thyromegaly. CARDIOVASCULAR: S1 and S2 present. No murmurs, rubs, or gallops. -PULMONARY: Chest is clear to auscultation, no wheezing or crackles. Bilateral crepitation ABDOMEN: Soft, nontender, nondistended, normoactive bowel sounds. No palpable organomegaly. MUSCULOSKELETAL: No joint swelling or deformity. EXTREMITIES: No cyanosis, clubbing, or pedal edema. NEUROLOGICAL: Gross neurological examination did not reveal any focal deficits. SKIN: No rashes. no petechiae. - Labs CBC & Chem 7: 06/12/21 07:56 06/12/21 07:56 Assessment and Plan Assessment: Bilateral Covid pneumonia Acute hypoxic respiratory failure Increased inflammatory markers Chronic atrial fibrillation on Eliquis Hypertension Hyperlipidemia History of osteoarthritis History of kidney stones History of BPH morbid Obesity with BMI of 44.8 Plan: covid pneumonia Continue with dexamethasone Continue with vitamin C, vitamin D and zinc Pulmonary consult Labs and medication were reviewed.. Continue same treatment. Continue with symptomatic treatment. Resume home medication. Monitor lytes and vitals. DVT and GI prophylaxis. Further recommendations depends on the clinical course of the patient DVT prophylaxis: Eliquis GI Prophylaxis: Pepcid Prognosis is guarded
--- NOTE | 2021-06-14 07:47 | XR ---
EXAMINATION TYPE: XR chest 1V portable DATE OF EXAM: 06/14/2021 HISTORY: Shortness of breath. COMPARISON: 06/12/2021 TECHNIQUE: Single view of the chest is submitted. FINDINGS: Demonstrated are scattered senescent parenchymal change. Patchy infiltrates throughout the right lung and to a lesser extent the left lung persist unchanged c ompatible with Covid 19 pneumonia. The heart is stable. Hilar and mediastinal structures are within normal limits. Degenerative changes are seen of the dorsal spine. IMPRESSION: 1. Patchy infiltrates throughout the right lung and to a lesser extent the left lung persist unchang ed compatible with Covid 19 pneumonia.
[2021-06-14] MEDS: CHOLECALCIFEROL 25 MCG (1000 IU) TABLET PO SCH (09:31)
[2021-06-14] MEDS: DEXAMETHASONE SOD PHOSPHATE 10 MG/ML 1 ML VIAL IVP SCH (09:31)
[2021-06-14] MEDS: FAMOTIDINE 20 MG/2 ML VIAL IV SCH ×2 (09:31→19:44)
[2021-06-14] MEDS: SODIUM CHLORIDE 0.9% 1,000 ML IV SCH (09:32)
[2021-06-14] MEDS: ZINC SULFATE 220 MG CAP PO SCH (09:32)
[2021-06-14] MEDS: APIXABAN 5 MG TAB PO SCH ×2 (09:32→19:44)
[2021-06-14] MEDS: METOPROLOL TARTRATE 25 MG TAB PO SCH ×2 (09:32→19:44)
[2021-06-14] MEDS: ASCORBIC ACID 500 MG TAB PO SCH (09:32)
[2021-06-14 11:23] LABS: Creatine Kinase 76 U/L (35-257)
[2021-06-14 11:29] LABS: LDH 559 U/L (120-246)
--- NOTE | 2021-06-14 14:29 | P.PN ---
Subjective Progress Note Date: 06/14/21 Principal diagnosis: Dyspnea On 06/12/2021 patient seen in follow-up on medical surgical floor, he is currently on 4 L of oxygen with a pulse ox of 93%, breathing comfortably, today is Remdesivir day 2 of treatment, he states his breathing is improving, lung sounds reveal some scattered crackles and wheezes, occasional cough, no phlegm production. Chest x-ray today shows persistent cardiomegaly with bilateral multifocal and confluent opacities consistent with known COVID-19 infection, no significant change. Today's labs have been reviewed, white blood cell count is 11.8, hemoglobin is 16.6, d-dimer is within normal limits at 0.49, a large lites are within normal limits, BUN is 28 creatinine is 1, inflammatory markers are improving and are down to 398 for LDH and 4 for CRP, pro-calcitonin level is negative at 0.10 On 06/14/2021 patient seen in follow-up on medical surgical floor, he is currently still on 5 L of oxygen, and his pulse ox is around 90-91%, he is awake and alert, he is resting comfortably in bed, does not appear to be in any acute respiratory distress. She has completed his Remdesivir yesterday, he remains on Decadron 6 mg daily, on Eliquis for history of chronic atrial fibrillation, he is on COVID-19 vitamins. His d-dimer today is 1.42, LDH is 559, improving overall since admission, CRP is 8.8 also improved since admission. Objective - Vital Signs Vital signs: Vital Signs Temp 97.4 F L 06/14/21 08:00 Pulse 65 06/14/21 08:00 Resp 22 06/14/21 08:00 BP 113/72 06/14/21 08:00 Pulse Ox 90 L 06/14/21 08:00 Intake & Output 06/13/21 06/14/21 06/14/21 18:59 06:59 18:59 Intake Total 1690 Balance 1690 Intake: Intake, IV Titration 1150 Amount Remdesivir 100 mg In 250 Sodium Chloride 0.9% 250 ml @ 250 mls/hr IVPB DAILY@1400 [facility] Rx#: [id number] Sodium Chloride 0.9% 1, 900 000 ml @ 75 mls/hr IV . [id number] [facility] Rx#:[id number] Oral 540 Other: Voiding Method Toilet Toilet # Voids 2 2 - Exam GENERAL EXAM: Alert, very pleasant,75-year-old, white male, on 5 L of oxygen and a pulse ox of 90-93% comfortable in no apparent distress. HEAD: Normocephalic/atraumatic. EYES: Normal reaction of pupils, equal size. Conjunctiva pink, sclera white. NOSE: Clear with pink turbinates. THROAT: No erythema or exudates. NECK: No masses, no JVD, no thyroid enlargement, no adenopathy. CHEST: No chest wall deformity. Symmetrical expansion. LUNGS: Equal air entry with bibasilar crackles CVS: Regular rate and rhythm, normal S1 and S2, no gallops, no murmurs, no rubs ABDOMEN: Soft, nontender. No hepatosplenomegaly, normal bowel sounds, no guarding or rigidity. EXTREMITIES: No clubbing, no edema, no cyanosis, 2+ pulses and upper and lower extremities. MUSCULOSKELETAL: Muscle strength and tone normal. SPINE: No scoliosis or deformity SKIN: No rashes CENTRAL NERVOUS SYSTEM: Alert and oriented -3. No focal deficits, tone is normal in all 4 extremities. PSYCHIATRIC: Alert and oriented -3. Appropriate affect. Intact judgment and insight. - Labs CBC & Chem 7: 06/12/21 07:56 06/12/21 07:56 Labs: Abnormal Lab Results - Last 24 Hours (Table) 06/14/21 06/14/21 Range/Units 07:18 07:18 D-Dimer 1.42 H (<0.60) mg/L FEU Lactate Dehydrogenase 559 H (120-246) U/L C-Reactive Protein 8.80 H (0.00-0.80) mg/dL Assessment and Plan Plan: Assessment: #1. Acute hypoxic respiratory failure secondary to COVID-19 pneumonia. Started on Remdesivir on 06/09/2021. Patient is status post completed vaccination with Moderna vaccine in January 2021 #2. History of chronic atrial fibrillation on Eliquis #3. History of hearing deficit #4. Hypertension #5. Hyperlipidemia #6. History of osteoporosis #7. History of kidney stones Plan: Patient status post completed Remdesivir treatments Continue current dose Decadron Continue multivitamins Inflammatory markers are improving, d-dimer is not significantly increased and the patient is already on Eliquis for his history of chronic A. fib Patient is a requiring 5 L of oxygen and O2 sats are marginal although clinically she looks stable Encourage the patient to deep breathe and cough, use incentive spirometer, encouraged the patient to reposition self in bed I performed a history & physical examination of the patient and discussed their management with my nurse practitioner, Vee Willard. I reviewed the nurse practitioner's note and agree with the documented findings and plan of care. Lung sounds are positive for diminished breath sounds throughout the lung norman. The findings and the impression was discussed with the patient. I attest to the documentation by the nurse practitioner. Time with Patient: Less than 30
[2021-06-14] MEDS: FINASTERIDE 5 MG TAB PO SCH (15:46)
[2021-06-14] MEDS: TAMSULOSIN 0.4 MG CAP.ER.24H PO SCH (19:44)
[2021-06-15] MEDS: SODIUM CHLORIDE 0.9% 1,000 ML IV SCH ×2 (01:49→08:25)
--- NOTE | 2021-06-15 07:02 | P.PN ---
Subjective This is a pleasant 75 years old male with past medical history of Atrial Fibrillation, Hearing Disorder / Deafness, Hyperlipidemia, Hypertension, O steoarthritis ,kidney stones, bph Patient presents because of dyspnea for 4 days duration associated with coughing and occasional phlegm. He denies chest pain or abdominal pain. No diarrhea or change in urine or bowel habits. He denies fever. He states he got Covid vaccination not sure when but about 4 months ago He denies smoking or illicit drugs, he drinks alcohol occasionally Patient had fever of 101. He is 89% on room air and 95% on 2 L oxygen for nasal cannula CBC showing mild lymphopenia 0.5. INR is 1.1 more BMP is unremarkable with sodium 133 and creatinine 1.08. Liver enzymes mildly elevated AST 62 and ALT 50. High lactic dehydrogenase 862 and C-reactive protein 15.7. Rajput virus is detected Chest x-ray:bilateral patchy infiltrate in the mid and lower lungs EKG showing atrial fibrillation at [address]-T changes and QTC 482 Was already started on exam his is on an normal saline at 75 mL/h with pulmonary consult 06/10/2021 Patient is still with significant dyspnea but he is fully awake and our intention and can walk in the room but is limited by his breathing pattern. No fever. he feels generally weak. No significant coughing or diarrhea. He still saturating 90s on 4 L oxygen via nasal cannula. Rest of vital signs stable. Continue with same treatment of dexamethasone, multiple vitamins, Eliquis, normal saline at 75 mL/h and remdesivir 06/11/2021 Patient still with dyspnea and still on 4 L/m of oxygen with saturation 90%. Afebrile. Hemodynamically stable. Eating and working is fine but patient tires very quick. Today's he is on dexamethasone, multiple vitamins, Eliquis, normal saline at 75 mL/h and remdesivir (last dose 06/13) 06/12/2021 Patient breathing looks the same and he is still on 4 L/m of oxygen with saturation only 90%. He is a febrile and dressed O vitals are stable. Mild leukocytosis and liver enzymes are still mildly elevated, the same mostly due to Covid infection. However high inflammatory markers are trending down with LDH down to 398 and C- reactive protein to 4. Continue with the same treatment of dexamethasone, multiple vitamins, Eliquis, normal saline at 75 mL/h and remdesivir. Tomorrow with B the last dose of remdesivir 06/13/2021 Patient was starting to get more tired, although his respiratory status is stable and he is saturating on 4 L/m of oxygen. He is been having of nights for the last 2 nights secondary to his breathing. Patient is morbidly obese with BMI 44.8. Also he is hypertensive. Patient might benefit from sleep studies as an outpatient. His appetite is poor to his eating 25-50% of his diet He remains on the same treatment : dexamethasone, multiple vitamins, Eliquis, normal saline at 75 mL/h. he finished remdesivir today 06/14/2021 Patient was sitting in bed having his breakfast. Patient states that he had a good night this time. His oxygen requirements slightly getting worse. Between 4-5 L/m D-dimer slightly elevated at 0.4 up to 1.4, LDH 559, C-reactive protein slightly elevated at 8.8. Bothcalcitonin is normal at 0.9. Chest x-ray showed patchy infiltrates. Patient remains on steroids dexamethasone and multiple vitamins. Also he finished his remdesivir. Objective - Vital Signs Vital signs: Vital Signs Temp 97.8 F 06/14/21 06:00 Pulse 73 06/14/21 06:00 Resp 20 06/14/21 02:00 BP 145/88 06/14/21 06:00 Pulse Ox 91 L 06/14/21 06:00 Intake & Output 06/13/21 06/14/21 06/14/21 18:59 06:59 18:59 Intake Total 1690 Balance 1690 Intake: Intake, IV Titration 1150 Amount Remdesivir 100 mg In 250 Sodium Chloride 0.9% 250 ml @ 250 mls/hr IVPB DAILY@1400 [facility] Rx#: [id number] Sodium Chloride 0.9% 1, 900 000 ml @ 75 mls/hr IV . [id number] [facility] Rx#:[id number] Oral 540 Other: Voiding Method Toilet Toilet # Voids 2 2 - Exam -GENERAL: The patient is alert and oriented x3, not in any acute distress. Morbidly obese HEENT: Pupils are round and equally reacting to light. EOMI. No scleral icterus. No conjunctival pallor. Normocephalic, atraumatic. No pharyngeal erythema. No thyromegaly. CARDIOVASCULAR: S1 and S2 present. No murmurs, rubs, or gallops. -PULMONARY: Chest is clear to auscultation, no wheezing or crackles. Bilateral crepitation ABDOMEN: Soft, nontender, nondistended, normoactive bowel sounds. No palpable organomegaly. MUSCULOSKELETAL: No joint swelling or deformity. EXTREMITIES: No cyanosis, clubbing, or pedal edema. NEUROLOGICAL: Gross neurological examination did not reveal any focal deficits. SKIN: No rashes. no petechiae. - Labs CBC & Chem 7: 06/12/21 07:56 06/12/21 07:56 Labs: Abnormal Lab Results - Last 24 Hours (Table) 06/14/21 Range/Units 07:18 D-Dimer 1.42 H (<0.60) mg/L FEU Assessment and Plan Assessment: Bilateral Covid pneumonia Acute hypoxic respiratory failure Increased inflammatory markers Chronic atrial fibrillation on Eliquis Hypertension Hyperlipidemia History of osteoarthritis History of kidney stones History of BPH morbid Obesity with BMI of 44.8 Plan: covid pneumonia Continue with dexamethasone Continue with vitamin C, vitamin D and zinc Pulmonary consult Labs and medication were reviewed.. Continue same treatment. Continue with symptomatic treatment. Resume home medication. Monitor lytes and vitals. DVT and GI prophylaxis. Further recommendations depends on the clinical course of the patient DVT prophylaxis: Eliquis GI Prophylaxis: Pepcid Prognosis is guarded
[2021-06-15] MEDS: FAMOTIDINE 20 MG/2 ML VIAL IV SCH ×2 (08:23→19:35)
[2021-06-15] MEDS: CHOLECALCIFEROL 25 MCG (1000 IU) TABLET PO SCH (08:24)
[2021-06-15] MEDS: DEXAMETHASONE SOD PHOSPHATE 10 MG/ML 1 ML VIAL IVP SCH (08:24)
[2021-06-15] MEDS: METOPROLOL TARTRATE 25 MG TAB PO SCH ×2 (08:24→19:35)
[2021-06-15] MEDS: APIXABAN 5 MG TAB PO SCH ×2 (08:24→19:35)
[2021-06-15] MEDS: ASCORBIC ACID 500 MG TAB PO SCH (08:24)
[2021-06-15] MEDS: ZINC SULFATE 220 MG CAP PO SCH (08:24)
--- NOTE | 2021-06-15 13:54 | P.PN ---
Subjective Progress Note Date: 06/15/21 On 06/12/2021 patient seen in follow-up on medical surgical floor, he is currently on 4 L of oxygen with a pulse ox of 93%, breathing comfortably, today is Remdesivir day 2 of treatment, he states his breathing is improving, lung sounds reveal some scattered crackles and wheezes, occasional cough, no phlegm production. Chest x-ray today shows persistent cardiomegaly with bilateral multifocal and confluent opacities consistent with known COVID-19 infection, no significant change. Today's labs have been reviewed, white blood cell count is 11.8, hemoglobin is 16.6, d-dimer is within normal limits at 0.49, a large lites are within normal limits, BUN is 28 creatinine is 1, inflammatory markers are improving and are down to 398 for LDH and 4 for CRP, pro-calcitonin level is negative at 0.10 On 06/14/2021 patient seen in follow-up on medical surgical floor, he is currently still on 5 L of oxygen, and his pulse ox is around 90-91%, he is awake and alert, he is resting comfortably in bed, does not appear to be in any acute respiratory distress. She has completed his Remdesivir yesterday, he remains on Decadron 6 mg daily, on Eliquis for history of chronic atrial fibrillation, he is on COVID-19 vitamins. His d-dimer today is 1.42, LDH is 559, improving overall since admission, CRP is 8.8 also improved since admission. 06/15/2021 seeing the patient for a follow-up. 4 yesterday, the patient was on 5 L about 2 by nasal cannula. Today evaluation, the patient is oxygen requirements have her not to 7 L. Note that the patient was requiring higher oxygen flow to maintain a saturation above 90%. His d-dimer is at 1.42. LDH level is mildly elevated at 559 and the CRP level is 8.8. CPK 76. TSH is at 0.9. No other labs are available from today. The chest x-ray from yesterday was still consistent with COVID 19 related pneumonia. The patient had patchy bilateral pulmonary infiltrates right more than left more so in the lung bases. He is afebrile. He is hemodynamically stable. On 7 L, the pulse ox is around 88%. The patient is still on Decadron 6 mg daily. The patient is also on long- term anticoagulation with Eliquis regarding chronic atrial fibrillation. Objective - Vital Signs Vital signs: Vital Signs Temp 97.6 F 06/15/21 10:27 Pulse 86 06/15/21 10:27 Resp 18 06/15/21 10:27 BP 121/83 06/15/21 10:27 Pulse Ox 88 L 06/15/21 10:27 Intake & Output 06/14/21 06/15/21 06/15/21 18:59 06:59 18:59 Other: Voiding Method Toilet # Voids 1 1 - Exam GENERAL EXAM: Alert, very pleasant,75-year-old, white male, on 7 L of oxygen and a pulse ox of 90-93% comfortable in no apparent distress. HEAD: Normocephalic/atraumatic. EYES: Normal reaction of pupils, equal size. Conjunctiva pink, sclera white. NOSE: Clear with pink turbinates. THROAT: No erythema or exudates. NECK: No masses, no JVD, no thyroid enlargement, no adenopathy. CHEST: No chest wall deformity. Symmetrical expansion. LUNGS: Equal air entry with bibasilar crackles CVS: Regular rate and rhythm, normal S1 and S2, no gallops, no murmurs, no rubs ABDOMEN: Soft, nontender. No hepatosplenomegaly, normal bowel sounds, no guarding or rigidity. EXTREMITIES: No clubbing, no edema, no cyanosis, 2+ pulses and upper and lower extremities. MUSCULOSKELETAL: Muscle strength and tone normal. SPINE: No scoliosis or deformity SKIN: No rashes CENTRAL NERVOUS SYSTEM: Alert and oriented -3. No focal deficits, tone is normal in all 4 extremities. PSYCHIATRIC: Alert and oriented -3. Appropriate affect. Intact judgment and insight. - Labs CBC & Chem 7: 06/12/21 07:56 06/12/21 07:56 Assessment and Plan Plan: #1. Acute hypoxic respiratory failure secondary to COVID-19 pneumonia. Started on Remdesivir on 06/09/2021. Patient is status post completed vaccination with Moderna vaccine in January 2021, the patient currently at 7 L of oxygen by nasal cannula. There has been some slight worsening in the oxygenation status since yesterday and the patient has been brought up to 7 L. #2. History of chronic atrial fibrillation on Eliquis #3. History of hearing deficit #4. Hypertension #5. Hyperlipidemia #6. History of osteoporosis #7. History of kidney stones Plan: Patient status post completed Remdesivir treatments Continue current dose Decadron, currently on 6 mg daily dose Continue multivitamins Inflammatory markers are improving, d-dimer is not significantly increased and the patient is already on Eliquis for his history of chronic A. fib Patient is a requiring 7 L of oxygen and O2 sats are marginal although clinically she looks stable Encourage the patient to deep breathe and cough, use incentive spirometer, encouraged the patient to reposition self in bed Not ready for discharge. His daughter who happened to be in the hospital is being released home today.
[2021-06-15 14:28] VITALS: BMI 44.7
[2021-06-15] MEDS: FINASTERIDE 5 MG TAB PO SCH (15:43)
[2021-06-15] MEDS: TAMSULOSIN 0.4 MG CAP.ER.24H PO SCH (19:35)
[2021-06-16] MEDS ORDERED: ALPRAZolam 0.25 MG TAB PO PRN (05:13)
[2021-06-16] MEDS: SODIUM CHLORIDE 0.9% 1,000 ML IV SCH (05:46)
[2021-06-16] MEDS: ASCORBIC ACID 500 MG TAB PO SCH (07:17)
[2021-06-16] MEDS: ZINC SULFATE 220 MG CAP PO SCH (07:17)
[2021-06-16] MEDS: CHOLECALCIFEROL 25 MCG (1000 IU) TABLET PO SCH (07:17)
[2021-06-16] MEDS: DEXAMETHASONE SOD PHOSPHATE 10 MG/ML 1 ML VIAL IVP SCH (07:18)
[2021-06-16] MEDS: METOPROLOL TARTRATE 25 MG TAB PO SCH (07:18)
[2021-06-16] MEDS: APIXABAN 5 MG TAB PO SCH (07:18)
[2021-06-16] MEDS: FAMOTIDINE 20 MG/2 ML VIAL IV SCH (07:18)
[2021-06-16 08:57] VITALS: RESP 18
--- NOTE | 2021-06-16 09:41 | P.PN ---
Subjective Progress Note Date: 06/15/21 This is a pleasant 75 years old male with past medical history of Atrial Fibrillation, Hearing Disorder / Deafness, Hyperlipidemia, Hypertension, Osteoarthritis ,kidney stones, bph Patient presents because of dyspnea for 4 days duration associated with coughing and occasional phlegm. He denies chest pain or abdominal pain. No diarrhea or change in urine or bowel habits. He denies fever. He states he got Covid vaccination not sure when but about 4 months ago He denies smoking or illicit drugs, he drinks alcohol occasionally Patient had fever of 101. He is 89% on room air and 95% on 2 L oxygen for nasal cannula CBC showing mild lymphopenia 0.5. INR is 1.1 more BMP is unremarkable with sodium 133 and creatinine 1.08. Liver enzymes mildly elevated AST 62 and ALT 50. High lactic dehydrogenase 862 and C-reactive protein 15.7. Rajput virus is detected Chest x-ray:bilateral patchy infiltrate in the mid and lower lungs EKG showing atrial fibrillation at [address]-T changes and QTC 482 Was already started on exam his is on an normal saline at 75 mL/h with pulmonary consult 06/10/2021 Patient is still with significant dyspnea but he is fully awake and our intention and can walk in the room but is limited by his breathing pattern. No fever. he feels generally weak. No significant coughing or diarrhea. He still saturating 90s on 4 L oxygen via nasal cannula. Rest of vital signs stable. Continue with same treatment of dexamethasone, multiple vitamins, Eliquis, normal saline at 75 mL/h and remdesivir 06/11/2021 Patient still with dyspnea and still on 4 L/m of oxygen with saturation 90%. Afebrile. Hemodynamically stable. Eating and working is fine but patient tires very quick. Today's he is on dexamethasone, multiple vitamins, Eliquis, normal saline at 75 mL/h and remdesivir (last dose 06/13) 06/12/2021 Patient breathing looks the same and he is still on 4 L/m of oxygen with saturation only 90%. He is a febrile and dressed O vitals are stable. Mild leukocytosis and liver enzymes are still mildly elevated, the same mostly due to Covid infection. However high inflammatory markers are trending down with LDH down to 398 and C- reactive protein to 4. Continue with the same treatment of dexamethasone, multiple vitamins, Eliquis, normal saline at 75 mL/h and remdesivir. Tomorrow with B the last dose of remdesivir 06/13/2021 Patient was starting to get more tired, although his respiratory status is stable and he is saturating on 4 L/m of oxygen. He is been having of nights for the last 2 nights secondary to his breathing. Patient is morbidly obese with BMI 44.8. Also he is hypertensive. Patient might benefit from sleep studies as an outpatient. His appetite is poor to his eating 25-50% of his diet He remains on the same treatment : dexamethasone, multiple vitamins, Eliquis, normal saline at 75 mL/h. he finished remdesivir today 06/14/2021 Patient was sitting in bed having his breakfast. Patient states that he had a good night this time. His oxygen requirements slightly getting worse. Between 4-5 L/m D-dimer slightly elevated at 0.4 up to 1.4, LDH 559, C-reactive protein slightly elevated at 8.8. Bothcalcitonin is normal at 0.9. Chest x-ray showed patchy infiltrates. Patient remains on steroids dexamethasone and multiple vitamins. Also he finished his remdesivir. 06/15/2021 Patient is seen and evaluated and follow-up this morning currently sitting up in the chair requesting to go home. Patient was maintaining oxygen saturations on 5 L although oxygen saturation dipped to 88% requiring 7 L high flow. Encouraged incentive spirometer use and discussed with nursing staff about weaning as tolerated. Is extremely eager to go home and asking multiple times if he can go home today. Pulmonary following. Review of systems: Constitutional: No reports of fatigue, fever, or chills Cardiovascular: No reports of chest pain or palpitations Respiratory: No reports of worsening shortness of breath or cough GI: No reports of nausea, vomiting, or diarrhea : No reports of dysuria or retention Neurovascular: No reports of weakness or numbness All medications have been reviewed Physical exam: GENERAL: The patient is alert and oriented x3, not in any acute distress. Morbidly obese HEENT: Pupils are round and equally reacting to light. EOMI. No scleral icterus. No conjunctival pallor. Normocephalic, atraumatic. No pharyngeal erythema. No thyromegaly. CARDIOVASCULAR: S1 and S2 present. No murmurs, rubs, or gallops. PULMONARY: Diminished breath sounds bilaterally with some coarse rhonchi noted throughout and no wheezing noted. ABDOMEN: Soft, nontender, nondistended, normoactive bowel sounds. No palpable organomegaly. MUSCULOSKELETAL: No joint swelling or deformity. EXTREMITIES: No cyanosis, clubbing, or pedal edema. NEUROLOGICAL: Gross neurological examination did not reveal any focal deficits. SKIN: No rashes. no petechiae. Assessment: Bilateral Covid pneumonia Acute hypoxic respiratory failure Increased inflammatory markers Chronic atrial fibrillation on Eliquis Hypertension Hyperlipidemia History of osteoarthritis History of kidney stones History of BPH morbid Obesity with BMI of 44.8 GI prophylaxis DVT prophylaxis full code Plan: Recommend continue with current medications and management. Pulmonary following closely. Continue to wean FiO2 as tolerated and currently maintained on 6-8 L via nasal cannula. Discussed with the patient about continuing to use incentive spirometer and increasing activity as tolerated and will need to be maintaining oxygen saturations of 90% on 5 L or less to discharge home. Patient still requesting to go home stating he feels fine and will discuss with pulmonary. Due to multiple complex medical issues, prognosis is guarded. Objective - Vital Signs Vital signs: Vital Signs Temp 98.1 F 06/15/21 05:41 Pulse 94 06/15/21 05:41 Resp 24 06/15/21 05:41 BP 134/95 06/15/21 05:41 Pulse Ox 86 L 06/15/21 05:41 Intake & Output 06/14/21 06/15/21 06/15/21 18:59 06:59 18:59 Other: Voiding Method Toilet # Voids 1 - Labs CBC & Chem 7: 06/12/21 07:56 06/12/21 07:56 Labs: Abnormal Lab Results - Last 24 Hours (Table) 06/14/21 Range/Units 07:18 Lactate Dehydrogenase 559 H (120-246) U/L C-Reactive Protein 8.80 H (0.00-0.80) mg/dL
[2021-06-16 14:25] VITALS: BP 153/93; PULSE 64; TEMP 97.4
[2021-06-16] MEDS: FINASTERIDE 5 MG TAB PO SCH (15:00)
--- NOTE | 2021-06-16 16:53 | P.PN ---
Subjective Progress Note Date: 06/16/21 Principal diagnosis: Dyspnea On 06/12/2021 patient seen in follow-up on medical surgical floor, he is currently on 4 L of oxygen with a pulse ox of 93%, breathing comfortably, today is Remdesivir day 2 of treatment, he states his breathing is improving, lung sounds reveal some scattered crackles and wheezes, occasional cough, no phlegm production. Chest x-ray today shows persistent cardiomegaly with bilateral multifocal and confluent opacities consistent with known COVID-19 infection, no significant change. Today's labs have been reviewed, white blood cell count is 11.8, hemoglobin is 16.6, d-dimer is within normal limits at 0.49, a large lites are within normal limits, BUN is 28 creatinine is 1, inflammatory markers are improving and are down to 398 for LDH and 4 for CRP, pro-calcitonin level is negative at 0.10 On 06/14/2021 patient seen in follow-up on medical surgical floor, he is currently still on 5 L of oxygen, and his pulse ox is around 90-91%, he is awake and alert, he is resting comfortably in bed, does not appear to be in any acute respiratory distress. She has completed his Remdesivir yesterday, he remains on Decadron 6 mg daily, on Eliquis for history of chronic atrial fibrillation, he is on COVID-19 vitamins. His d-dimer today is 1.42, LDH is 559, improving overall since admission, CRP is 8.8 also improved since admission. On 06/16/2021 patient seen in follow-up on medical surgical floor, he remains on 5 L of oxygen, his pulse ox is 90-92%, he is breathing comfortably, he has been tolerating ambulation, does get some exertional dyspnea, but overall his been stable over the course of several days, he has completed a course of Remdesivir, he remains on Decadron at 6 mg daily, he is on Eliquis for chronic atrial fibrillation, he is on multivitamins no form of vitamin C, vitamin D, and zinc. No new labs today, his inflammatory markers from a couple days ago were improving since admission his Procan SR level was negative at 0.10. His d-dimer was not significantly elevated to 1.42, and patient was already on chronic anticoagulation the form of Eliquis. His last chest x-ray from 06/14/2021 showed patchy infiltrate throughout the right lung and to a lesser did extend to the left lung unchanged compatible with COVID-19 pneumonia. Objective - Vital Signs Vital signs: Vital Signs Temp 97.4 F L 06/16/21 14:00 Pulse 64 06/16/21 14:00 Resp 18 06/16/21 14:00 BP 153/93 06/16/21 14:00 Pulse Ox 92 L 06/16/21 14:00 Intake & Output 06/15/21 06/16/21 06/16/21 18:59 06:59 18:59 Weight 149.685 kg Other: Voiding Method Toilet Toilet # Voids 1 3 - Exam GENERAL EXAM: Alert, very pleasant,75-year-old, white male, on 5 L of oxygen and a pulse ox of 90-93% comfortable in no apparent distress. HEAD: Normocephalic/atraumatic. EYES: Normal reaction of pupils, equal size. Conjunctiva pink, sclera white. NOSE: Clear with pink turbinates. THROAT: No erythema or exudates. NECK: No masses, no JVD, no thyroid enlargement, no adenopathy. CHEST: No chest wall deformity. Symmetrical expansion. LUNGS: Equal air entry with bibasilar crackles CVS: Regular rate and rhythm, normal S1 and S2, no gallops, no murmurs, no rubs ABDOMEN: Soft, nontender. No hepatosplenomegaly, normal bowel sounds, no guarding or rigidity. EXTREMITIES: No clubbing, no edema, no cyanosis, 2+ pulses and upper and lower extremities. MUSCULOSKELETAL: Muscle strength and tone normal. SPINE: No scoliosis or deformity SKIN: No rashes CENTRAL NERVOUS SYSTEM: Alert and oriented -3. No focal deficits, tone is nor mal in all 4 extremities. PSYCHIATRIC: Alert and oriented -3. Appropriate affect. Intact judgment and insight. - Labs CBC & Chem 7: 06/12/21 07:56 06/12/21 07:56 Assessment and Plan Plan: Assessment: #1. Acute hypoxic respiratory failure secondary to COVID-19 pneumonia. Completed a course of Remdesivir on 06/14/2021. Patient is status post completed vaccination with Moderna vaccine in January 2021 #2. History of chronic atrial fibrillation on Eliquis #3. History of hearing deficit #4. Hypertension #5. Hyperlipidemia #6. History of osteoporosis #7. History of kidney stones Plan: Patient has been clinically stable, breathing is improving, although still requiring subtotal oxygen at 5 L Inflammatory markers improved since admission No worsening dyspnea, patient is tolerating ambulation Stable for discharge home from pulmonary perspective on the fourth to 5 L of supplemental oxygen He can finish outpatient course of Decadron for total of 10 days He has completed a course of Remdesivir He status post completed vaccination in January 2021 Outpatient follow-up in [address] Farias I performed a history & physical examination of the patient and discussed their management with my nurse practitioner, Vee Willard. I reviewed the nurse practitioner's note and agree with the documented findings and plan of care. Lung sounds are positive for diminished breath sounds throughout the lung norman. The findings and the impression was discussed with the patient. I attest to the documentation by the nurse practitioner. Time with Patient: Less than 30
== END 2021-06-16 16:47 | disposition home or self-care (01) | DRG 177 ==
LOC: EC 07:23 → 4SSUR 09:46
PROVIDERS: ADMIT Internal Medicine; ATTEND Internal Medicine
PROC: XW033E5 Introduction of Remdesivir Anti-infective into Peripheral Vein, Percutaneous Approach, New Technology Group 5 (ICD-10-PCS; principal; 2021-06-09)
PROC: 3E0333Z Introduction of Anti-inflammatory into Peripheral Vein, Percutaneous Approach (ICD-10-PCS; 2021-06-09)
DX: U07.1 COVID-19 (principal); J12.82 Pneumonia due to coronavirus disease 2019; J96.01 Acute respiratory failure with hypoxia; I48.20 Chronic atrial fibrillation, unspecified; Z68.41 Body mass index [BMI] 40.0-44.9, adult; D72.810 Lymphocytopenia; E66.01 Morbid (severe) obesity due to excess calories; E78.5 Hyperlipidemia, unspecified; H91.90 Unspecified hearing loss, unspecified ear; M81.0 Age-related osteoporosis without current pathological fracture; N40.0 Benign prostatic hyperplasia without lower urinary tract symptoms; I10 Essential (primary) hypertension; Z79.01 Long term (current) use of anticoagulants; Z79.899 Other long term (current) drug therapy; Z80.42 Family history of malignant neoplasm of prostate; Z80.8 Family history of malignant neoplasm of other organs or systems; Z82.49 Family history of ischemic heart disease and other diseases of the circulatory system; Z87.442 Personal history of urinary calculi; Z96.641 Presence of right artificial hip joint; Z96.653 Presence of artificial knee joint, bilateral; Z88.0 Allergy status to penicillin; Z88.2 Allergy status to sulfonamides; Z88.1 Allergy status to other antibiotic agents
CPT/HCPCS: 36415; 71045; 80053; 82550; 82728; 83605; 83615; 83735; 84145; 84443; 85025; 85379; 85610; 85730; 86140; 87635; 93005; 96361; 96374; 99291

== ENCOUNTER → 2022-01-19 | Outpatient (CLI) | payer MEDICARE ==
[2022-01-19 14:45] LABS: ALT 21 U/L (10-49); AST 16 U/L (14-35); Chol/HDL Ratio 3.12 Ratio; LDL Cholesterol,Calculated 86.9 mg/dL (0.0-131.0)
== END | disposition home or self-care (01) ==
LOC: LABWHC1 07:59
PROVIDERS: ATTEND Internal Medicine Cardiovascular Disease
DX: Z00.00 Encounter for general adult medical examination without abnormal findings (principal); N20.0 Calculus of kidney
CPT/HCPCS: 36415; 80061; 84450; 84460

== ENCOUNTER 2022-02-11 14:27 | Emergency (ER) | payer MEDICARE ==
--- NOTE | 2022-02-11 15:11 | ED ---
General Adult HPI - General Chief complaint: Shortness of Breath Stated complaint: SOB, weakness Time Seen by Provider: 02/11/22 15:09 Source: patient, family Mode of arrival: wheelchair Limitations: no limitations - History of Present Illness Initial comments: Patient presents to the ED with his for evaluation. Patient states that he has felt generally weak and tired for the past 3-4 days. Patient also states that he feels somewhat dizzy and dyspneic as well. Patient's states that they are currently in the process of moving into a new house, and patient states that he has been under a lot of stress recently. Patient denies having any pain, fever or chills, headache, focal numbness/weakness/neuro deficit, visual changes, chest pain, cough or cold symptoms, palpitations, syncope, abdominal pain, nausea/vomiting/diarrhea, bloody or melanotic stool, dysuria or urinary symptoms, decreased urine output, leg or calf swelling or pain, or any other symptoms or complaints. Patient states that he is fully vaccinated and boosted against Covid. Patient is currently on Eliquis the coagulation therapy for atrial fibrillation. - Related Data Home Medications Medication Instructions Recorded Confirmed Simvastatin 20 mg PO HS 02/21/15 02/11/22 Apixaban [Eliquis] 5 mg PO BID 06/09/21 02/11/22 Finasteride [Proscar] 5 mg PO DAILY 06/09/21 02/11/22 Glucosamine/Chondr Charles A Sod [Osteo 1 tab PO DAILY 06/09/21 02/11/22 Bi-Flex Caplet] Metoprolol Tartrate [Lopressor] 25 mg PO BID 06/09/21 02/11/22 Tamsulosin [Flomax] 0.4 mg PO HS 06/09/21 02/11/22 Allergies Allergy/AdvReac Type Severity Reaction Status Date / Time oxytetracycline Allergy Rash/Hives Verified 02/11/22 17:16 [From Terramycin] oxytetracycline HCl Allergy Rash/Hives Verified 02/11/22 17:16 [From Terramycin] Penicillins Allergy Rash/Hives Verified 02/11/22 17:16 Sulfa (Sulfonamide Allergy Rash/Hives Verified 02/11/22 17:16 Antibiotics) ciprofloxacin [From Cipro] AdvReac Abdominal Verified 02/11/22 17:16 Pain, NAUSEA Review of Systems ROS Statement: Those systems with pertinent positive or pertinent negative responses have been documented in the HPI. ROS Other: All systems not noted in ROS Statement are negative. Past Medical History Past Medical History: Atrial Fibrillation, Chest Pain / Angina, Hearing Disorder / Deafness, Hyperlipidemia, Hypertension, Osteoarthritis (OA), Prostate Disorder Additional Past Medical History / Comment(s): kidney stones, bph, undiagnosed apnea History of Any Multi-Drug Resistant Organisms: None Reported Past Surgical History: Hernia Repair, Orthopedic Surgery Additional Past Surgical History / Comment(s): lump removed from throat, bilateral knee replacement, right hip replacement Past Anesthesia/Blood Transfusion Reactions: No Reported Reaction Past Psychological History: No Psychological Hx Reported Smoking Status: Never smoker Past Alcohol Use History: None Reported Past Drug Use History: None Reported - Past Family History Father History Unknown: Yes Family Medical History: Cancer, Myocardial Infarction ([place]) Additional Family Medical History / Comment(s): prostate cancer Mother History Unknown: Yes Family Medical History: Cancer Brother(s) History Unknown: Yes Family Medical History: Cancer Additional Family Medical History / Comment(s): prostate Sister(s) History Unknown: Yes Family Medical History: Cancer Additional Family Medical History / Comment(s): ovarian, throat/neck cancer Daughter(s) History Unknown: Yes Family Medical History: Thyroid Disorder Additional Family Medical History / Comment(s): hypothyroid General Exam Limitations: no limitations General appearance: alert, in no apparent distress Head exam: Present: atraumatic, normocephalic Eye exam: Present: normal appearance, EOMI ENT exam: Present: mucous membranes moist Neck exam: Present: other (Trachea is in midline) Respiratory exam: Present: normal lung sounds bilaterally. Absent: respiratory distress, wheezes, rales, rhonchi, stridor Cardiovascular Exam: Present: bradycardia, irregular rhythm, normal heart sounds, other (Normal radial pulses bilaterally) GI/Abdominal exam: Present: soft. Absent: distended, tenderness, guarding Extremities exam: Present: other (Negative Homans sign bilaterally). Absent: tenderness, pedal edema, calf tenderness Neurological exam: Present: alert, oriented X3, CN II-XII intact. Absent: motor sensory deficit Psychiatric exam: Present: normal affect, normal mood Skin exam: Present: warm, dry, intact, normal color Course Vital Signs 02/11/22 02/11/2202/11/22 14:35 15:39 16:29 Temperature 98.4 F Pulse Rate 62 69 61 Respiratory 22 22 18 Rate Blood Pressure 156/89 125/77 143/99 O2 Sat by Pulse 97 96 95 Oximetry 02/11/22 18:58 Temperature 98.9 F Pulse Rate 68 Respiratory 18 Rate Blood Pressure 138/85 O2 Sat by Pulse 98 Oximetry - Reevaluation(s) Reevaluation #1: 02/11/22 19:33 Patient denies development of any new symptoms while in the ED. Patient remains alert and breathing comfortably with a normal room air oxygen saturation. Patient has been treated with IV monoclonal antibody therapy for Covid after risks and benefits were discussed with the patient. Patient and are aware the patient's test results, and patient feels comfortable going home with his at this time. They were both counseled about Covid isolation precautions. They were clearly explained return and follow-up instructions. Patient was instructed to follow up closely with his primary care provider. Patient feels comfortable with this plan. EKG Findings - EKG Comments: EKG Findings:: Atrial fibrillation with slow ventricular response, ventricular rate of 51 bpm, right bundle branch block, QRS duration of 165 ms, normal QT interval, normal axis, no ST or T-wave abnormality Medical Decision Making - Medical Decision Making Other than a positive Covid test, the patient's labs are fairly unremarkable. Patient's chest x-ray is also fairly unremarkable. Patient has a normal room air oxygen saturation. Patient has been treated with IV monoclonal antibody therapy in the ED. I suspect that the patient's symptoms are likely secondary to his Covid infection. Patient and were counseled about Covid isolation precautions. Will discharge patient home with his at this time. - Lab Data Result diagrams: 02/11/22 15:42 02/11/22 15:42 Lab Results 02/11/22 02/11/22 02/11/22 Range/Units 15:42 15:42 15:42 WBC 9.7 (3.8-10.6) k/uL RBC 5.52 (4.30-5.90) m/uL Hgb 16.4 (13.0-17.5) gm/dL Hct 53.3 H (39.0-53.0) % MCV 96.5 (80.0-100.0) fL MCH 29.7 (25.0-35.0) pg MCHC 30.8 L (31.0-37.0) g/dL RDW 14.0 (11.5-15.5) % Plt Count 186 (150-450) k/uL MPV 7.7 Neutrophils % 83 % Lymphocytes % 8 % Monocytes % 6 % Eosinophils % 1 % Basophils % 0 % Neutrophils # 8.1 H (1.3-7.7) k/uL Lymphocytes # 0.8 L (1.0-4.8) k/uL Monocytes # 0.6 (0-1.0) k/uL Eosinophils # 0.1 (0-0.7) k/uL Basophils # 0.0 (0-0.2) k/uL PT 10.9 (9.0-12.0) sec INR 1.0 (<1.2) APTT 26.4 (22.0-30.0) sec Sodium (137-145) mmol/L Potassium (3.5-5.1) mmol/L Chloride (98-107) mmol/L Carbon Dioxide (22-30) mmol/L Anion Gap mmol/L BUN (9-20) mg/dL Creatinine (0.66-1.25) mg/dL Est GFR (CKD-EPI)AfAm (>60 ml/min/1.73 sqM) Est GFR (CKD-EPI)NonAf (>60 ml/min/1.73 sqM) Glucose (74-99) mg/dL Calcium (8.4-10.2) mg/dL Magnesium (1.6-2.3) mg/dL Total Bilirubin (0.2-1.3) mg/dL AST (17-59) U/L ALT (4-49) U/L Alkaline Phosphatase (38-126) U/L Troponin I (0.000-0.034) ng/mL NT-Pro-B Natriuret Pep pg/mL Total Protein (6.3-8.2) g/dL Albumin (3.5-5.0) g/dL TSH (0.465-4.680) mIU/L Urine Color Yellow Urine Appearance Turbid (Clear) Urine pH 5.5 (5.0-8.0) Ur Specific [place] 1.020 (1.001-1.035) Urine Protein 1+ H (Negative) Urine Glucose (UA) Negative (Negative) Urine Ketones Trace H (Negative) Urine Blood Moderate H (Negative) Urine Nitrite Negative (Negative) Urine Bilirubin Negative (Negative) Urine Urobilinogen <2.0 (<2.0) mg/dL Ur Leukocyte Esterase Large H (Negative) Urine RBC 45 H (0-5) /hpf Urine WBC >182 H (0-5) /hpf Urine WBC Clumps Many H (None) /hpf Ur Squamous Epith Cells 1 (0-4) /hpf Coronavirus (PCR) (Not Detectd) 02/11/22 02/11/22 02/11/22 Range/Units 15:42 15:42 15:42 WBC (3.8-10.6) k/uL RBC (4.30-5.90) m/uL Hgb (13.0-17.5) gm/dL Hct (39.0-53.0) % MCV (80.0-100.0) fL MCH (25.0-35.0) pg MCHC (31.0-37.0) g/dL RDW (11.5-15.5) % Plt Count (150-450) k/uL MPV Neutrophils % % Lymphocytes % % Monocytes % % Eosinophils % % Basophils % % Neutrophils # (1.3-7.7) k/uL Lymphocytes # (1.0-4.8) k/uL Monocytes # (0-1.0) k/uL Eosinophils # (0-0.7) k/uL Basophils # (0-0.2) k/uL PT (9.0-12.0) sec INR (<1.2) APTT (22.0-30.0) sec Sodium 140 (137-145) mmol/L Potassium 4.6 (3.5-5.1) mmol/L Chloride 107 (98-107) mmol/L Carbon Dioxide 24 (22-30) mmol/L Anion Gap 9 mmol/L BUN 18 (9-20) mg/dL Creatinine 1.20 (0.66-1.25) mg/dL Est GFR (CKD-EPI)AfAm 67 (>60 ml/min/1.73 sqM) Est GFR (CKD-EPI)NonAf 58 (>60 ml/min/1.73 sqM) Glucose 107 H (74-99) mg/dL Calcium 9.4 (8.4-10.2) mg/dL Magnesium 2.0 (1.6-2.3) mg/dL Total Bilirubin 0.9 (0.2-1.3) mg/dL AST 21 (17-59) U/L ALT 17 (4-49) U/L Alkaline Phosphatase 59 (38-126) U/L Troponin I <0.012 (0.000-0.034) ng/mL NT-Pro-B Natriuret Pep 1700 pg/mL Total Protein 6.8 (6.3-8.2) g/dL Albumin 4.1 (3.5-5.0) g/dL TSH 1.600 (0.465-4.680) mIU/L Urine Color Urine Appearance (Clear) Urine pH (5.0-8.0) Ur Specific [place] (1.001-1.035) Urine Protein (Negative) Urine Glucose (UA) (Negative) Urine Ketones (Negative) Urine Blood (Negative) Urine Nitrite (Negative) Urine Bilirubin (Negative) Urine Urobilinogen (<2.0) mg/dL Ur Leukocyte Esterase (Negative) Urine RBC (0-5) /hpf Urine WBC (0-5) /hpf Urine WBC Clumps (None) /hpf Ur Squamous Epith Cells (0-4) /hpf Coronavirus (PCR) (Not Detectd) 02/11/22 Range/Units 15:42 WBC (3.8-10.6) k/uL RBC (4.30-5.90) m/uL Hgb (13.0-17.5) gm/dL Hct (39.0-53.0) % MCV (80.0-100.0) fL MCH (25.0-35.0) pg MCHC (31.0-37.0) g/dL RDW (11.5-15.5) % Plt Count (150-450) k/uL MPV Neutrophils % % Lymphocytes % % Monocytes % % Eosinophils % % Basophils % % Neutrophils # (1.3-7.7) k/uL Lymphocytes # (1.0-4.8) k/uL Monocytes # (0-1.0) k/uL Eosinophils # (0-0.7) k/uL Basophils # (0-0.2) k/uL PT (9.0-12.0) sec INR (<1.2) APTT (22.0-30.0) sec Sodium (137-145) mmol/L Potassium (3.5-5.1) mmol/L Chloride (98-107) mmol/L Carbon Dioxide (22-30) mmol/L Anion Gap mmol/L BUN (9-20) mg/dL Creatinine (0.66-1.25) mg/dL Est GFR (CKD-EPI)AfAm (>60 ml/min/1.73 sqM) Est GFR (CKD-EPI)NonAf (>60 ml/min/1.73 sqM) Glucose (74-99) mg/dL Calcium (8.4-10.2) mg/dL Magnesium (1.6-2.3) mg/dL Total Bilirubin (0.2-1.3) mg/dL AST (17-59) U/L ALT (4-49) U/L Alkaline Phosphatase (38-126) U/L Troponin I (0.000-0.034) ng/mL NT-Pro-B Natriuret Pep pg/mL Total Protein (6.3-8.2) g/dL Albumin (3.5-5.0) g/dL TSH (0.465-4.680) mIU/L Urine Color Urine Appearance (Clear) Urine pH (5.0-8.0) Ur Specific [place] (1.001-1.035) Urine Protein (Negative) Urine Glucose (UA) (Negative) Urine Ketones (Negative) Urine Blood (Negative) Urine Nitrite (Negative) Urine Bilirubin (Negative) Urine Urobilinogen (<2.0) mg/dL Ur Leukocyte Esterase (Negative) Urine RBC (0-5) /hpf Urine WBC (0-5) /hpf Urine WBC Clumps (None) /hpf Ur Squamous Epith Cells (0-4) /hpf Coronavirus (PCR) Detected A (Not Detectd) - Radiology Data Chest x-ray: No acute pulmonary process radiographically evident. Follow up can be performed as clinically indicated. Disposition Clinical Impression: Weakness, Atrial fibrillation with slow ventricular response, COVID-19 Disposition: HOME SELF-CARE Condition: Stable Instructions (If sedation given, give patient instructions): Coronavirus Disease 2019 (COVID-19) Additional Instructions: Return to the ER should you develop increased shortness of breath, chest pain, fainting, a high fever, or new or worsening symptoms. Follow up closely with your primary care provider. Is patient prescribed a controlled substance at d/c from ED?: No Referrals: Debra Oshea PAC [REFERRING] - 1-2 days Time of Disposition: 19:33
--- NOTE | 2022-02-11 15:53 | XR ---
EXAMINATION TYPE: XR chest 2V DATE OF EXAM: 02/11/2022 COMPARISON: 06/14/2021 INDICATION: Difficulty breathing TECHNIQUE: Frontal and lateral views of the chest are obtained. FINDINGS: The heart size is normal. The pulmonary vasculature is normal. No suspicious focal consolidations.. IMPRESSION: 1. No acute pulmonary process radiographically evident. Follow-up can be performed as clinically wyatt cated.
[2022-02-11 16:09] LABS: Basophils % (A) 0 %; Eosinophils # (A) 0.1 k/uL (0-0.7); Eosinophils % (A) 1 %; HCT 53.3 % (39.0-53.0); HGB 16.4 gm/dL (13.0-17.5); Lymphocytes # (A) 0.8 k/uL (1.0-4.8); Lymphocytes % (A) 8 %; MCH 29.7 pg (25.0-35.0); MCHC 30.8 g/dL (31.0-37.0); MCV 96.5 fL (80.0-100.0); Mean Platelet Volume 7.7; Monocytes # (A) 0.6 k/uL (0-1.0); Monocytes % (A) 6 %; Neutrophils # (A) 8.1 k/uL (1.3-7.7); Neutrophils % (A) 83 %; Platelet Count 186 k/uL (150-450); RBC 5.52 m/uL (4.30-5.90); WBC 9.7 k/uL (3.8-10.6)
[2022-02-11 16:18] LABS: Albumin 4.1 g/dL (3.5-5.0); Calcium 9.4 mg/dL (8.4-10.2); Potassium 4.6 mmol/L (3.5-5.1); Total Bilirubin 0.9 mg/dL (0.2-1.3); Total Protein 6.8 g/dL (6.3-8.2)
[2022-02-11 16:19] LABS: Partial Thromboplastin Time 26.4 sec (22.0-30.0); Prothrombin Time 10.9 sec (9.0-12.0)
[2022-02-11 16:32] VITALS: RESP 18
[2022-02-11] MEDS ORDERED: BEBTELOVIMAB (EUA) 175 MG/2 ML VIAL IV ONE (19:00)
[2022-02-11 19:24] LABS: Appearance,Urine Turbid (Clear); Bilirubin,Urine Negative (Negative); Blood,Urine Moderate (Negative); Color,Urine Yellow; Glucose,Urine (UA) Negative (Negative); Ketones,Urine Trace (Negative); Leukocyte Esterase,Urine Large (Negative); Nitrite,Urine Negative (Negative); PH, Urine 5.5 (5.0-8.0); Protein,Urine 1+ (Negative); RBC,Urine 45 /hpf (0-5); Squamous Epithelial Cell,Urine 1 /hpf (0-4); Urobilinogen,Urine <2.0 mg/dL (<2.0); WBC,Urine >182 /hpf (0-5)
[2022-02-11 20:16] VITALS: BP 137/73; PULSE 77; TEMP 98.5
== END 2022-02-11 20:16 | disposition home or self-care (01) ==
LOC: EC 14:27
DX: U07.1 COVID-19 (principal); I48.91 Unspecified atrial fibrillation; I10 Essential (primary) hypertension; E78.5 Hyperlipidemia, unspecified; Z88.1 Allergy status to other antibiotic agents; Z88.0 Allergy status to penicillin; Z88.2 Allergy status to sulfonamides; Z79.899 Other long term (current) drug therapy; Z79.01 Long term (current) use of anticoagulants
CPT/HCPCS: 36415; 93005; 83880; 80053; 83735; 84443; 84484; 85025; 85610; 85730; 81001; 87086; 87635; 71046; 99285; Q0222

== ENCOUNTER → 2022-12-05 | Outpatient (CLI) | payer MEDICARE ==
--- NOTE | 2022-12-06 09:01 | XR ---
EXAMINATION TYPE: XR KUB DATE OF EXAM: 12/05/2022 Comparison: 10/04/2021 Clinical History: 77-year-old male low back pain. Findings: 1.6 cm calcification left mid abdomen. Pelvic phleboliths. Mild to moderate left hip degenerative sunshine nge. Partially visualized right femoral arthroplasty. No significant stool burden. Nonobstructive bow el gas pattern. Impression: Suspect a 1.6 cm nonobstructive left renal calculus. Small pelvic phleboliths.
== END | disposition home or self-care (01) ==
LOC: RADXRMAIN 16:43
PROVIDERS: ATTEND Urology
DX: N20.0 Calculus of kidney (principal); I87.8 Other specified disorders of veins
CPT/HCPCS: 74018

== ENCOUNTER → 2023-05-17 | Outpatient (CLI) | payer MEDICARE ==
--- NOTE | 2023-05-18 08:13 | XR ---
EXAMINATION TYPE: XR KUB DATE OF EXAM: 05/17/2023 5:06 PM CLINICAL INDICATION:Male, 77 years old with history of N20.0; COMPARISON: None. TECHNIQUE: One radiographic view of the abdomen was obtained. FINDINGS: The bowel gas pattern is nonspecific without dilated loops of small or large bowel. There i s no evidence for organomegaly or pneumoperitoneum. The osseous structures are intact. Fecal materi al and gas are demonstrated throughout the colon and rectum. Degeneration changes throughout the spi ne. Left renal calculus. Right hip arthroplasty changes. Hardware appears intact. Left renal calculus measuring up to 21 x 11 mm. IMPRESSION: 1. Left renal calculus. 2. Nonspecific bowel gas pattern without radiographic evidence for acute process.
== END | disposition home or self-care (01) ==
LOC: RADXRMAIN 16:27
PROVIDERS: ATTEND Urology
DX: N20.0 Calculus of kidney (principal)
CPT/HCPCS: 74018

== ENCOUNTER → 2023-11-27 | Outpatient (CLI) | payer MEDICARE ==
--- NOTE | 2023-11-27 13:34 | XR ---
EXAMINATION TYPE: XR KUB DATE OF EXAM: 11/27/2023 Comparison: 05/17/2023 Clinical History: 78-year-old male R31.9 HEMATURIA Findings: Partially visualized right total arthroplasty. Pelvic phleboliths. Mild degenerative changes left hip . Redemonstrated 2.3 x 1.2 cm calcification of the left mid abdomen. Scattered mild stool. Nonobstruc tive bowel gas pattern. Impression: Similar 2.3 x 1.2 cm oval calcification left mid abdomen. Pelvic phleboliths. Mild stool burden.
== END | disposition home or self-care (01) ==
LOC: RADXRMAIN 11:48
PROVIDERS: ATTEND Urology
DX: R31.9 Hematuria, unspecified (principal); I87.8 Other specified disorders of veins
CPT/HCPCS: 74018

== ENCOUNTER → 2024-02-13 | Outpatient (CLI) | payer MEDICARE ==
[2024-02-13 16:17] LABS: ALT 19 U/L (10-49); AST 17 U/L (14-35); Chol/HDL Ratio 2.79 Ratio; LDL Cholesterol,Calculated 74.1 mg/dL (0.0-131.0); VLDL Calculation 13.22 mg/dL (5.00-40.00)
== END | disposition home or self-care (01) ==
LOC: LABWHC1 09:33
PROVIDERS: ATTEND Internal Medicine Cardiovascular Disease
DX: E78.2 Mixed hyperlipidemia (principal)
CPT/HCPCS: 36415; 80061; 84450; 84460

== ENCOUNTER → 2024-05-13 | Outpatient (CLI) | payer MEDICARE ==
--- NOTE | 2024-05-13 14:23 | XR ---
EXAMINATION TYPE: XR KUB DATE OF EXAM: 05/13/2024 Comparison: 11/27/2023 Clinical History: 78-year-old male N20.0 CALCULUS KIDNEY Findings: Right upper arthroplasty. Prominent heterotopic ossification redemonstrated about the prosthetic righ t hip. Moderate degenerative changes left hip. Facet arthropathy lower lumbar spine. There are a clus ter of calcifications projecting at the expected lower pole left kidney. Largest stone measures 2.3 c m. Nonobstructed bowel gas pattern. Mild stool burden. Pelvic phleboliths. Impression: A cluster of stones at the expected lower pole left kidney, largest measuring 2.3 cm. [facility], , 05/13/2024 2:21 PM
== END | disposition home or self-care (01) ==
LOC: RADXRMAIN 13:44
PROVIDERS: ATTEND Urology
DX: N20.0 Calculus of kidney (principal)
CPT/HCPCS: 74018

== ENCOUNTER → 2024-05-17 | Outpatient (CLI) | payer MEDICARE ==
--- NOTE | 2024-05-17 11:40 | CT ---
EXAMINATION TYPE: CT abdomen pelvis wo con DATE OF EXAM: 05/17/2024 9:54 AM COMPARISON: 04/19/2019 CLINICAL INDICATION: Male, 78 years old with history of N13.30 HYDRONEPHROSIS; hydronephrosis TECHNIQUE: Axial CT abdomen pelvis wo con;Sagittal and coronal reformats were created on a separate workstation. Contrast used: mL of , (none if empty) Oral contrast used: without Oral Contrast (none if empty) CT DLP: 1776 mGycm, Automated exposure control for dose reduction was used. FINDINGS: LOWER CHEST: Moderate cardiomegaly with moderate coronary artery atherosclerosis and mild aortic valv e calcifications. ABDOMEN LIVER: Unremarkable GALLBLADDER AND BILE DUCTS: Multiple gallstones layering in the gallbladder lumen. PANCREAS: Unremarkable. SPLEEN: Unremarkable. ADRENAL GLANDS: Unremarkable. KIDNEYS AND URETERS: There is bilateral hydronephrosis. In the left with layering calculi in the dist al ureter with stones present measuring up tor 7 mm right to the ureteral pelvic junction and a dilat ed ureter. Additional left staghorn calculus with [id number] hydronephrosis. Left appearing pro bable renal cyst. Multiple right renal cyst. Mild to moderate right hydroureteronephrosis. Nonobstruc ting right renal calculus. PELVIS BLADDER: Fat stranding changes around the urinary bladder. REPRODUCTIVE: Prostate is enlarged in size measuring 6.6 cm in transverse dimension. ABDOMEN & PELVIS STOMACH AND BOWEL: No evidence of bowel obstruction. PERITONEUM/RETROPERITONEUM: No evidence of pneumoperitoneum or free fluid. VASCULATURE: No evidence of aortic aneurysm MUSCULOSKELETAL: No acute osseous abnormalities, right hip arthroplasty with streak artifact through the pelvis. LYMPH NODES: No gross evidence for lymphadenopathy. SOFT TISSUE/ABDOMINAL WALL: Bilateral fat-containing inguinal hernias. IMPRESSION: 1. Moderate bilateral hydroureteronephrosis. Given prostatomegaly correlate for chronic bladder outl et obstruction. 2. Left staghorn calculus. Left distal ureteral calculus without obstructing calculi. 3. No right renal calculi. 4. Prostatomegaly, correlate with serum PSA. 5. Mild inflammation around the urinary bladder correlate with urinalysis for cystitis. 6. Cholelithiasis. 7. Bilateral simple appearing renal cysts. 8. Moderate cardiomegaly with moderate coronary artery atherosclerosis and mild aortic valve calcifi cations. [facility], , 05/17/2024 11:38 AM
== END | disposition home or self-care (01) ==
LOC: RADCTMAIN 09:10
PROVIDERS: ATTEND Urology
DX: N13.2 Hydronephrosis with renal and ureteral calculous obstruction (principal); N40.0 Benign prostatic hyperplasia without lower urinary tract symptoms; K80.20 Calculus of gallbladder without cholecystitis without obstruction; N28.1 Cyst of kidney, acquired; I25.10 Atherosclerotic heart disease of native coronary artery without angina pectoris; I51.7 Cardiomegaly; I35.8 Other nonrheumatic aortic valve disorders; N32.0 Bladder-neck obstruction
CPT/HCPCS: 74176

== ENCOUNTER → 2024-05-29 | Outpatient (CLI) | payer MEDICARE ==
[2024-05-29 15:48] LABS: Basophils # (A) 0.05 X 10*3/uL (0.00-0.10); Basophils % (A) 0.6 %; Eosinophils # (A) 0.13 X 10*3/uL (0.04-0.35); Eosinophils % (A) 1.6 %; HCT 49.2 % (39.6-50.0); HGB 15.3 g/dL (13.0-17.0); Lymphocytes # (A) 0.89 X 10*3/uL (0.90-5.00); Lymphocytes % (A) 11.2 %; MCH 30.3 pg (27.0-32.0); MCHC 31.1 g/dL (32.0-37.0); MCV 97.4 FL (80.0-97.0); Mean Platelet Volume 11.1 FL (9.5-12.2); Monocytes # (A) 0.54 X 10*3/uL (0.20-1.00); Monocytes % (A) 6.8 %; NRBC Per 100 WBC 0 X 10*3/uL (0.00-0.01); Neutrophils % (A) 79.7 %; Platelet Count 223 X 10*3/uL (140-440); RBC 5.05 X 10*6/uL (4.40-5.60); RDW 13.6 % (11.5-14.5); WBC 7.92 X 10*3/uL (4.50-10.00)
[2024-05-29 15:58] LABS: ALT 17 U/L (10-49); AST 15 U/L (14-35); Albumin 3.9 g/dL (3.8-4.9); Albumin/Globulin Ratio 1.77 Ratio (1.60-3.17); Alkaline Phosphatase 72 U/L (41-126); BUN/Creat Ratio 12.92 Ratio (12.00-20.00); Blood Urea Nitrogen 16.8 mg/dL (9.0-27.0); Calcium 9.1 mg/dL (8.7-10.3); Carbon Dioxide 23.8 mmol/L (21.6-31.8); Chloride 110 mmol/L (96-109); Globulin 2.2 g/dL (1.6-3.3); Glucose 146 mg/dL (70-110); Potassium 4.2 mmol/L (3.5-5.5); Sodium 146 mmol/L (135-145); Total Bilirubin 0.9 mg/dL (0.3-1.2); Total Protein 6.1 g/dL (6.2-8.2)
[2024-05-29 16:56] LABS: Appearance,Urine Turbid (Clear); Bilirubin,Urine Negative (Negative); Blood,Urine Large (Negative); Color,Urine Yellow (Yellow); Ketones,Urine Negative (Negative); Nitrite,Urine Negative (Negative); Urobilinogen,Urine 0.2 E.U./DL
[2024-05-29 18:07] LABS: Bacteria,Urine 2+ (None Seen)
== END | disposition home or self-care (01) ==
LOC: LABPAT 10:44
PROVIDERS: ATTEND Urology
DX: Z01.812 Encounter for preprocedural laboratory examination (principal); N20.1 Calculus of ureter
CPT/HCPCS: 80053; 81001; 85025; 87086

== ENCOUNTER → 2024-06-05 | Day surgery (SDC) | payer MEDICARE ==
--- NOTE | 2024-06-04 14:51 | P.GSHP ---
History of Present Illness H&P Date: 06/04/24 78 yo male with a 15 mm llp stone who comes for cysto, left ureteroscopy with laser lithotripsy. Because of recurrent luts with possible recurrent uti he wilver have the stone removed. Alternative treatment options have been discussed. - Constitutional Constitutional: Denies chills, Denies fever - EENT Eyes: denies blurred vision, denies pain Ears, nose, mouth and throat: Denies headache, Denies sore throat - Cardiovascular Cardiovascular: Denies chest pain, Denies shortness of breath - Respiratory Respiratory: Denies cough, Denies 7 - Gastrointestinal Gastrointestinal: Denies abdominal pain, Denies diarrhea, Denies nausea, Denies vomiting - Genitourinary (Female) Genitourinary: Denies dysuria, Denies hematuria - Genitourinary (Male) Genitourinary: Denies dysuria, Denies hematuria - Musculoskeletal Musculoskeletal: Denies myalgias - Integumentary Integumentary: Denies pruritus, Denies rash - Neurological Neurological: Denies numbness, Denies weakness - Psychiatric Psychiatric: Denies anxiety, Denies depression - Endocrine Endocrine: Denies fatigue, Denies weight change Past Medical History Past Medical History: Atrial Fibrillation, Chest Pain / Angina, Hearing Disorder / Deafness, Hyperlipidemia, Hypertension, Osteoarthritis (OA), Prostate Disorder Additional Past Medical History / Comment(s): kidney stones, bph, undiagnosed apnea, wears hearing aids History of Any Multi-Drug Resistant Organisms: None Reported Past Surgical History: Hernia Repair, Joint Replacement, Orthopedic Surgery Additional Past Surgical History / Comment(s): lump removed from throat, bilateral knee replacement, right hip replacement, delroy cataract surg with lens implant Past Anesthesia/Blood Transfusion Reactions: No Reported Reaction Smoking Status: Never smoker - Past Family History Father History Unknown: Yes Family Medical History: Cancer, Myocardial Infarction ([place]) Additional Family Medical History / Comment(s): prostate cancer Mother History Unknown: Yes Family Medical History: Cancer Brother(s) History Unknown: Yes Family Medical History: Cancer Additional Family Medical History / Comment(s): prostate Sister(s) History Unknown: Yes Family Medical History: Cancer Additional Family Medical History / Comment(s): ovarian, throat/neck cancer Daughter(s) History Unknown: Yes Family Medical History: Thyroid Disorder Additional Family Medical History / Comment(s): hypothyroid Medications and Allergies Home Medications Medication Instructions Recorded Confirmed Type Simvastatin 20 mg PO HS 02/21/15 06/03/24 History Apixaban [Eliquis] 5 mg PO BID 06/09/21 06/03/24 History Finasteride [Proscar] 5 mg PO DAILY 06/09/21 06/03/24 History Metoprolol Tartrate [Lopressor] 25 mg PO BID 06/09/21 06/03/24 History Tamsulosin [Flomax] 0.4 mg PO HS 06/09/21 06/03/24 History Allergies Allergy/AdvReac Type Severity Reaction Status Date / Time oxytetracycline Allergy Rash/Hives Verified 06/03/24 08:46 [From Terramycin] oxytetracycline HCl Allergy Rash/Hives Verified 06/03/24 08:46 [From Terramycin] Penicillins Allergy Rash/Hives Verified 06/03/24 08:46 Sulfa (Sulfonamide Allergy Rash/Hives Verified 06/03/24 08:46 Antibiotics) ciprofloxacin [From Cipro] AdvReac Abdominal Verified 06/03/24 08:46 Pain, NAUSEA Surgical - Exam - General well developed, well nourished, no distress, obese - Eyes normal ocular movement, no icteric - ENT no hearing loss, no congestion - Neck no masses, trachea midline - Respiratory normal respiratory effort, clear to auscultation - Abdomen Abdomen: soft, non tender, no guarding, no rigid, no rebound - Integumentary no rash, no abnormal pigmentation - Neurologic no disoriented, no combative - Psychiatric oriented to time, oriented to person, oriented to place, speech is normal, memory intact Results - Imaging Abdominal x-ray: report reviewed, image reviewed CT scan - abdomen: report reviewed, image reviewed CT scan - pelvis: report reviewed, image reviewed Assessment and Plan Assessment: Impression: Left renal stone. obesity, chronic anticoagulation Plan: cysto with left ureteroscopy and laser lithotripsy, possible stent placement
[~2024-06-05] MED LIST changes: -DEXAMETHASONE SOD PHOSPHATE 10 MG/ML 1 ML VIAL IV ONE; +GLYCOPYRROLATE 0.2 MG/ML 2 ML VIAL ONE; +HYDROmorphone 0.5 MG/0.5 ML SYRINGE IVP PRN; -LACTATED RINGERS 1,000 ML IV SCH; +LIDOCAINE 1% (10MG/ML) FOR IV START INTRADERMA PRN; +LIDOCAINE 1% INJ 10MG/ML (20 ML MDV) ONE; +NEOSTIGMINE 1 MG/ML 10 ML VIAL ONE; -ONDANSETRON 4 MG/2 ML VIAL IVP ONE; +PROPOFOL 10 MG/ML 20 ML VIAL IV ONE; +ROCURONIUM 10 MG/ML (5 ML VIAL) IV ONE; -ceFAZolin 3 GM in SODIUM CHLORIDE 0.9% 100 ML IVPB ONE; +droPERidol 5 MG/2 ML VIAL IVP ONE; +ePHEDrine 50 MG/ML 1 ML VIAL ONE; +fentaNYL (PF) 50 MCG/ML 2 ML AMP ONE
--- NOTE | 2024-06-05 10:22 | XR ---
EXAMINATION TYPE: XR KUB DATE OF EXAM: 06/05/2024 10:15 AM COMPARISON: 05/13/2024 CLINICAL INDICATION: Male, 78 years old with history of N20.1 CALCULUS OF URETER, TECHNIQUE: Single view of the abdomen. FINDINGS: Right renal calculi: None Visualized. Right ureteral calculi: None Visualized. Left renal calculi: 2.2 cm calculus lower pole left kidney. Left ureteral calculi: None Visualized. Pelvic calcifications: Yes Bowel gas pattern is unremarkable. No free air. No mass effects. IMPRESSION: 1. 2.2 cm calculus lower pole left kidney. Ureteral calculus seen at CT is not identified with certai nty on plain film radiograph. [facility], , 06/05/2024 10:20 AM
[2024-06-05] MEDS: DEXAMETHASONE SOD PHOSPHATE 4 MG/ML 1 ML VIAL IV ONE (10:56)
[2024-06-05] MEDS: ONDANSETRON 4 MG/2 ML VIAL IVP ONE (10:56)
[2024-06-05] MEDS: MIDAZOLAM 2 MG/2 ML VIAL IV ONE (10:57)
[2024-06-05] MEDS: LACTATED RINGERS 1,000 ML IV SCH (10:58)
[2024-06-05] MEDS: IV FLUID CONTINUATION 1,000 ML IV ONE (11:01)
[2024-06-05] MEDS: GENTAMICIN 150 MG in SODIUM CHLORIDE 0.9% 100 ML IVPB PRN (11:08)
[2024-06-05] MEDS: LACTATED RINGERS 1,000 ML IV ONE (11:55)
[2024-06-05 12:10] VITALS: TEMP 96.8
--- NOTE | 2024-06-05 12:10 | P.OP ---
Date of Procedure: 06/05/24 Preoperative Diagnosis: left ureteral calculus with obstruction Postoperative Diagnosis: left ureteral calculus with obstruction, cystitis Procedure(s) Performed: cystoscopy, left ureteroscopy, placement of 6 x 26 double-J catheter Anesthesia: AWA Surgeon: Melvin Hanley Estimated Blood Loss (ml): 10 Pathology: none sent Condition: stable Disposition: PACU Indications for Procedure: patient is a 78. He is found to have hydronephrosis. Computed tomography scan identified 7 mm distal left ureteral stone with obstruction as well as his chronic 2 cm left lower pole stone.he comes for left ureteroscopy and laser lithotripsy Description of Procedure: patient brought operating suite. Given a general anesthetic. He's placed lithotomy position with a sterile prep and drape. Some circumcised and is hygiene is poor. I have to dilate his foreskin to retracted in order to pass a cystoscope. Under direct vision I passed the cystoscope into the bladder. The prostate is trilobar and obstructing. Upon entering the bladder there is a fair amount of cloudy urine. Bladder is quite inflamed throughout the trigone and posterior wall. Eventually I'm able to identify the left ureteral orifice. Attempt to pass a wire up the ureter but meet obstruction of the stone is ureter enters the bladder on the left side.over the wire pass an open-ended catheter which allows me to mid to late the wire up into the kidney. I leave the wire in the ureter and I passed the semirigid scope to the large prostate and angulation I'm unable to get to the stone. I then over the wire pass a reentry sheath which goes by the stone and pullout ureteroscopy is difficult to identify the stone therefore stone remains in the left ureter. With the difficulty of the procedure, the inflamed bladder neck to terminate so as I do not lose access to the left ureter. Over the wire then pass a 6 x 26 double-J catheter coils in the renal pelvis and the bladder the bladder strain the patient is awake and returned recovery in good condition. Be discharged home with antibiotics even though his preoperative culture is negative. He will return to the OR and a couple of weeks for a second attempt ureteroscopy to remove the left distal ureteral stone.
--- NOTE | 2024-06-05 12:18 | FL ---
Fluoroscopy History: LEFT URETERAL STONE Cysto for LT sided stone with Coury 1 image saved 28.3 sec fluoro time .[id number] [facility], , 06/05/2024 12:16 PM
[2024-06-05 12:46] VITALS: RESP 16
[2024-06-05 13:27] VITALS: BP 165/88
[2024-06-05 13:48] VITALS: PULSE 89
== END | disposition home or self-care (01) ==
LOC: OR 09:43
PROVIDERS: ATTEND Urology
DX: N13.2 Hydronephrosis with renal and ureteral calculous obstruction (principal); N30.90 Cystitis, unspecified without hematuria; N30.30 Trigonitis without hematuria; I48.91 Unspecified atrial fibrillation; E78.5 Hyperlipidemia, unspecified; M19.90 Unspecified osteoarthritis, unspecified site; I10 Essential (primary) hypertension; E66.9 Obesity, unspecified; F41.9 Anxiety disorder, unspecified; N40.1 Benign prostatic hyperplasia with lower urinary tract symptoms; Z68.32 Body mass index [BMI] 32.0-32.9, adult; Z98.890 Other specified postprocedural states; Z96.653 Presence of artificial knee joint, bilateral; Z96.641 Presence of right artificial hip joint; Z82.49 Family history of ischemic heart disease and other diseases of the circulatory system; Z83.49 Family history of other endocrine, nutritional and metabolic diseases; Z88.0 Allergy status to penicillin; Z88.2 Allergy status to sulfonamides; Z88.1 Allergy status to other antibiotic agents; Z79.01 Long term (current) use of anticoagulants; Z79.899 Other long term (current) drug therapy
CPT/HCPCS: 74018; 52351; C2625; C1769; C1758; J2250; J1100; J2710; J2405; J2003; J3010; J1580; J2704; J1596

== ENCOUNTER → 2024-06-19 | Day surgery (SDC) | payer MEDICARE ==
[2024-06-12 15:07] VITALS: BMI 38.3
--- NOTE | 2024-06-18 18:55 | P.GSHP ---
History of Present Illness H&P Date: 06/18/24 78 yo male with a history of stones. recently was in the hospital with a uti and an obstrucintg stone in the left ureter. A stent was placed in the left ureter and the patient was treated with antibiotics. The patient now comes for a left ureteral stone removal with ureteroscopy with laser lithotripsy. The stent may or may not be replaced. - Constitutional Constitutional: Denies chills, Denies fever - EENT Eyes: denies blurred vision, denies pain Ears, nose, mouth and throat: Denies headache, Denies sore throat - Cardiovascular Cardiovascular: Denies chest pain, Denies shortness of breath - Respiratory Respiratory: Denies cough, Denies 7 - Gastrointestinal Gastrointestinal: Denies abdominal pain, Denies diarrhea, Denies nausea, Denies vomiting - Genitourinary (Female) Genitourinary: Denies dysuria, Denies hematuria - Genitourinary (Male) Genitourinary: Denies dysuria, Denies hematuria - Musculoskeletal Musculoskeletal: Denies myalgias - Integumentary Integumentary: Denies pruritus, Denies rash - Neurological Neurological: Denies numbness, Denies weakness - Psychiatric Psychiatric: Denies anxiety, Denies depression - Endocrine Endocrine: Denies fatigue, Denies weight change Past Medical History Past Medical History: Atrial Fibrillation, Chest Pain / Angina, Hearing Disorder / Deafness, Hyperlipidemia, Hypertension, Osteoarthritis (OA), Prostate Disorder Additional Past Medical History / Comment(s): kidney stones, bph, undiagnosed apnea, wears hearing bi lat aids. Kidney stones. Jun 05, 2024- Recent kidney stone with infected ureter-unable to removes stone r/t infected/swollen ureter. History of Any Multi-Drug Resistant Organisms: None Reported Past Surgical History: Hernia Repair, Joint Replacement, Orthopedic Surgery Additional Past Surgical History / Comment(s): lump removed from throat, bilateral knee replacement, right hip replacement, delroy cataract surg with lens implant. Colonoscopy. Past Anesthesia/Blood Transfusion Reactions: No Reported Reaction Additional Past Anesthesia/Blood Transfusion Reaction / Comment(s): "He has to have something to calm his nerves down prior to surgery." "Difficult time waking up." No hx of blood transfusion to date. Smoking Status: Never smoker - Past Family History Father History Unknown: Yes Family Medical History: Cancer, Myocardial Infarction ([place]) Additional Family Medical History / Comment(s): prostate cancer Mother History Unknown: Yes Family Medical History: Cancer Additional Family Medical History / Comment(s): Unknown source. Brother(s) History Unknown: Yes Family Medical History: Cancer Additional Family Medical History / Comment(s): prostate Sister(s) History Unknown: Yes Family Medical History: Cancer Additional Family Medical History / Comment(s): ovarian, throat/neck cancer Daughter(s) History Unknown: Yes Family Medical History: Thyroid Disorder Additional Family Medical History / Comment(s): hypothyroid Medications and Allergies Home Medications Medication Instructions Recorded Confirmed Type Simvastatin 20 mg PO HS 02/21/15 06/12/24 History Apixaban [Eliquis] 5 mg PO BID 06/09/21 06/12/24 History Finasteride [Proscar] 5 mg PO QAM 06/09/21 06/12/24 History Metoprolol Tartrate [Lopressor] 25 mg PO BID 06/09/21 06/12/24 History Tamsulosin [Flomax] 0.4 mg PO HS 06/09/21 06/12/24 History Ciprofloxacin HCl [Cipro] 500 mg PO Q12HR 1 Days #20 tab 06/05/24 06/12/24 Rx Tylenol(Unknown Dose) 1 dose PO Q8H PRN 06/12/24 06/12/24 History Allergies Allergy/AdvReac Type Severity Reaction Status Date / Time oxytetracycline Allergy Rash/Hives Verified 06/12/24 14:51 [From Terramycin] oxytetracycline HCl Allergy Rash/Hives Verified 06/12/24 14:51 [From Terramycin] Penicillins Allergy Rash/Hives Verified 06/12/24 14:51 Sulfa (Sulfonamide Allergy Rash/Hives Verified 06/12/24 14:51 Antibiotics) Surgical - Exam - General well developed, well nourished, no distress - Eyes normal ocular movement, no icteric - ENT no hearing loss, no congestion - Neck no masses, trachea midline - Respiratory normal respiratory effort, clear to auscultation - Abdomen Abdomen: soft, non tender, no guarding, no rigid, no rebound - Integumentary no rash, no abnormal pigmentation - Neurologic no disoriented, no combative - Psychiatric oriented to time, oriented to person, oriented to place, speech is normal, memory intact Assessment and Plan Assessment: Impression: left ureteral stone s/p stent placement Plan: Cysto with left ureteroscopy with laser lithotripsy and possible stent replacement
[~2024-06-19] MED LIST changes: -GLYCOPYRROLATE 0.2 MG/ML 2 ML VIAL ONE; -NEOSTIGMINE 1 MG/ML 10 ML VIAL ONE; +PHENYLEPHRINE-0.9% NACL SYG 1,000 MCG/10 ML SYRINGE ONE; -ROCURONIUM 10 MG/ML (5 ML VIAL) IV ONE; -droPERidol 5 MG/2 ML VIAL IVP ONE; +fentaNYL (PF) 50 MCG/ML 2 ML AMP IVP PRN
--- NOTE | 2024-06-19 07:24 | XR ---
EXAMINATION TYPE: XR KUB DATE OF EXAM: 06/19/2024 7:09 AM COMPARISON: 06/05/2024 CLINICAL INDICATION: Male, 78 years old with history of preoperative exam for Cystoscopy/Lithotripsy, , FINDINGS: Left ureteral stent is in place. Partially uncurled distal stent loop. Small pelvic phleboliths. Part ially visualized right hip arthroplasty. 2.0 cm overall calcification projecting left mid abdomen pro bably at the lower pole left kidney. Scattered gassy bowel loops are present throughout as well as sc attered air within the colon. Mild overall stool. IMPRESSION: Left ureteral stent. Partially uncurled distal stent loop. Redemonstrated oval 2.0 cm left mid abdomi nal calcification. [facility], , 06/19/2024 7:21 AM
[2024-06-19] MEDS: MIDAZOLAM 2 MG/2 ML VIAL IV PRN (08:10)
[2024-06-19] MEDS: DEXAMETHASONE SOD PHOSPHATE 4 MG/ML 1 ML VIAL IV ONE (08:16)
[2024-06-19] MEDS: ONDANSETRON 4 MG/2 ML VIAL IVP ONE (08:17)
[2024-06-19] MEDS: LACTATED RINGERS 1,000 ML IV SCH (08:17)
[2024-06-19] MEDS: IV FLUID CONTINUATION 1,000 ML IV ONE (08:24)
[2024-06-19] MEDS: GENTAMICIN 150 MG in SODIUM CHLORIDE 0.9% 100 ML IVPB PRN (09:02)
--- NOTE | 2024-06-19 09:56 | P.OP ---
Date of Procedure: 06/19/24 Preoperative Diagnosis: asked ureteral stones with obstruction status post stent placement Postoperative Diagnosis: same Procedure(s) Performed: cystoscopy, removal double-J catheter left, left ureteroscopy with laser lithotripsy and stone basketing. Anesthesia: AWA Surgeon: Melvin Hanley Estimated Blood Loss (ml): 10 Pathology: other (stone) Condition: stable Disposition: PACU Indications for Procedure: 78-year-old gentleman recently underwent a left ureteroscopy but due to infection and a large prostate I was unable to achieve the ureteroscopic stone manipulation. A stent was placed up. He now comes for a second attempt Description of Procedure: patient brought to the operating suite. Given a general anesthetic. Placed lithotomy position with a sterile prep and drape. Cystoscopy through a very phimotic foreskin is performed. I passed into the anterior urethra is normal. The prostatic urethra shows marked lateral lobe obstruction and a high riding bladder neck. The bladder is inspected. It is irrigated thoroughly. There is some old necrotic debris on the posterior floor from a previous infection. Left ureteral orifice and and stent were identified. The stent and pulled to the urethral meatus. An 035 wires passed up into the left kidney. The stent is removed. I then pass a semirigid ureteroscope successfully into the ureter up to the stones. There are 5 stones. The largest is broken into smaller pieces with laser lithotripsy, 2 in 75 probe up. I then basket the fragments as well as the other stones. At the end of the procedure I passed the ureteroscope up into the proximal left ureter new pullout ureteroscopy and there no remaining stones. There is not enough edema of the left ureter to leave a stent. The ureteroscope was removed. The bladder strain the patient is awake and returned recovery in good condition. The stones are sent to pathology and the patient will follow-up in the office in one week.
[2024-06-19 10:07] VITALS: TEMP 96.8
--- NOTE | 2024-06-19 10:27 | FL ---
EXAMINATION TYPE: FL guidance operating room DATE OF EXAM: 06/19/2024 10:10 AM COMPARISON: Pre Operative Images if available both CT/MRI or plain film CLINICAL INDICATION: Male, 78 years old with history of Cystro for left kidney stone; TECHNIQUE: FL guidance operating room, multiple fluoroscopic images provided for procedure. Total fluoroscopy time: 34 seconds Total submitted images to PACS: 4 DAP: 10.67 mGym2 Gycm2 uGym2 cGycm2 or equivalent. FINDINGS: Multiple intraoperative fluoroscopic images were taken resulting in ureteral stent placement. No imme diate intraoperative complication. Multilevel degeneration changes throughout the spine. IMPRESSION: 1. No evidence for intraoperative complication. 2. Please see the operative/procedural note for further details. [facility], , 06/19/2024 10:24 AM
[2024-06-19] MEDS: METOPROLOL TARTRATE 5 MG/5 ML VIAL IVP PRN (10:40)
[2024-06-19] MEDS: hydrALAZINE HCL 20 MG/ML 1 ML VIAL IVP STA (11:28)
[2024-06-19 11:58] VITALS: RESP 18
[2024-06-19] MEDS: LACTATED RINGERS 1,000 ML IV ONE (12:38)
[2024-06-19 12:58] VITALS: BP 174/82; PULSE 94
== END | disposition home or self-care (01) ==
LOC: OR 06:51
PROVIDERS: ATTEND Urology
DX: N20.1 Calculus of ureter (principal); E78.5 Hyperlipidemia, unspecified; I10 Essential (primary) hypertension; I48.91 Unspecified atrial fibrillation; M19.90 Unspecified osteoarthritis, unspecified site; N40.0 Benign prostatic hyperplasia without lower urinary tract symptoms; I20.9 Angina pectoris, unspecified; H91.90 Unspecified hearing loss, unspecified ear; F41.9 Anxiety disorder, unspecified; Z79.01 Long term (current) use of anticoagulants; Z88.1 Allergy status to other antibiotic agents; Z88.2 Allergy status to sulfonamides; Z98.890 Other specified postprocedural states; Z79.899 Other long term (current) drug therapy
CPT/HCPCS: 52353; 82365; 74018; C1769; J2250; J0360; J1100; J2405; J2003; J3010; J1580; J2704; J2371

== ENCOUNTER → 2025-02-06 | Outpatient (CLI) | payer MEDICARE ==
[2025-02-06 15:26] LABS: Basophils # (A) 0.05 X 10*3/uL (0.00-0.10); Basophils % (A) 0.7 %; Eosinophils # (A) 0.16 X 10*3/uL (0.04-0.35); Eosinophils % (A) 2.4 %; HCT 50.6 % (39.6-50.0); HGB 15.5 g/dL (13.0-17.0); Immature Grans, Automated 0.10 %; Lymphocytes # (A) 1.09 X 10*3/uL (0.90-5.00); Lymphocytes % (A) 16.3 %; MCH 30.3 pg (27.0-32.0); MCHC 30.6 g/dL (32.0-37.0); MCV 98.8 FL (80.0-97.0); Monocytes # (A) 0.77 X 10*3/uL (0.20-1.00); Monocytes % (A) 11.5 %; NRBC Per 100 WBC 0 X 10*3/uL (0.00-0.01); Neutrophils # (A) 4.59 X 10*3/uL (1.80-7.70); Neutrophils % (A) 69.0 %; Platelet Count 193 X 10*3/uL (140-440); RBC 5.12 X 10*6/uL (4.40-5.60); RDW 14.8 % (11.5-14.5); WBC 6.67 X 10*3/uL (4.50-10.00)
[2025-02-06 15:54] LABS: ALT 18 U/L (10-49); AST 20 U/L (14-35); Albumin 4.0 g/dL (3.8-4.9); Albumin/Globulin Ratio 1.67 Ratio (1.60-3.17); Alkaline Phosphatase 66 U/L (41-126); Anion Gap 13.60 mmol/L (4.00-12.00); BUN/Creat Ratio 15.43 Ratio (12.00-20.00); Blood Urea Nitrogen 21.6 mg/dL (9.0-27.0); Calcium 9.3 mg/dL (8.7-10.3); Carbon Dioxide 21.4 mmol/L (21.6-31.8); Chloride 112 mmol/L (96-109); Cholesterol 119.00 mg/dL (0.00-200.00); Globulin 2.4 g/dL (1.6-3.3); Glucose 101 mg/dL (70-110); HDL Cholesterol 45.50 mg/dL (40.00-60.00); LDL Cholesterol,Calculated 62.3 mg/dL (0.0-131.0); Potassium 4.5 mmol/L (3.5-5.5); Prostate Specific Antigen 4.41 ng/mL (0.000-6.500); Sodium 147 mmol/L (135-145); Total Protein 6.4 g/dL (6.2-8.2); Triglycerides 55.90 mg/dL (0.00-149.00); VLDL Calculation 11.18 mg/dL (5.00-40.00)
== END | disposition home or self-care (01) ==
LOC: LABWHC1 07:39
PROVIDERS: ATTEND Nurse Practitioner Family
DX: I48.20 Chronic atrial fibrillation, unspecified (principal); E78.2 Mixed hyperlipidemia; E11.9 Type 2 diabetes mellitus without complications; E78.5 Hyperlipidemia, unspecified; N20.0 Calculus of kidney; N40.1 Benign prostatic hyperplasia with lower urinary tract symptoms
CPT/HCPCS: 36415; 80053; 80061; 82043; 82570; 83036; 84153; 84443; 85025